=== PATIENT | male | born 1945 | race Caucasian/White ===

== ENCOUNTER 2019-12-17 15:52 | Emergency (ER) | payer OTHER ==
--- OUTSIDE RECORDS SUMMARY | 2019-12-17 15:58 | XMS REPORT | Continuity of Care Document ---
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 [place] neck JAW CA Active 06/24/[address] C17.0 - MALIGNANT Active 06/13/20 [facility] NEOPLASM OF 18 [place] DUODENUM DYSPHAGIA Active 05/07/[address] R13.11 Active 04/28/[address] CA OF JAW Active 03/11/[address] C76.0 - "MALIGNANT Active 02/26/20 H [facility] NEOPLASM OF HEAD, 17 [place] FA" Other nonspecific 01/08/2019 M H [facility] abnormal finding Her lea of lung field Hyperlipidemia Active Problem 06/24/2019 [place] (disorder[place] Medical [place], [place]RIE Cordero,[facility] Hypertensive Active Problem 06/24/2019 [place] disorder, systemic M edical arterial [place], (disorder[facility] 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 Medical (disorder) [place], [place]RIE Cordero,[facility], [facility] 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[facility] nodule Gil Other specified 08/31/2018 [facility] postprocedural [place] nn states Personal history 08/31/2018 [facility] of antineoplastic He rmann chemotherapy Personal history 08/31/2018 [facility] of irradiation Tala nn 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, Medical unspecified Center Personal history 01/17/2019 [facility] nicotine Medical dependence Center Essential 01/17/2019 [facility] (primary) Medical hypertension Center Hyperlipidemia, 01/17/2019 [facility] unspecified Medical Center DYSPHAGIA, ORAL Active PHASE [place] MALIGNANT NEOPLASM Active OF HEAD, FACE AND [place] N[place] Medications Medication Details Route Status Patient Ordering Order Source Instructions Provider Date Enoxaparin Notes: (Same [place] as: Lovenox) 2019 Medical Center Hydrochlorothiazide 1 tab, Route: No Longer [place] 12.5 MG / Lisinopril PO, Drug Form: Active 2019 Medical 10 MG Oral Tablet TAB, Dosing Ce nter Weight 79.091, kg, Daily, Start date: 06/30/18 9:00:00 REFLOW OPERATOR, Duration: 30 day, Stop date: 07/29/18 9:00:00 REFLOW OPERATOR Aspirin 325 MG Oral Notes: Take Inactive [facility] Tablet with food. 2019 Medical Center Amlodipine Notes: (Same Inactive [place] as: Norvasc) 2019 [facility] Microzide Notes: (Same Inactive [place] as: Microzide) 2019 Medical With food. Center lisinopril Notes: (Same [place] as: Prinivil, 2019 [facility] Zestril) Center Docusate Sodium 100 100 mg = 1 Active [place] MG Oral Capsule cap, PO, BID, 2019 [place] # 14 cap, 0 Center Refill(s) tramadol 50 mg = 1 tab, No Longer [place] as hydrochloride 50 MG PO, Q4H, PRN Active 2019 Medical Oral Tablet Pain Score Center 1-5, X 14 day, # 45 tab, 0 Refill(s) ondansetron 4 mg 4 mg = 1 tab, Active H [place] oral tablet PO, Q8H, PRN 2019 Medical Nausea & Center Vomiting, # 10 tab, 0 Refill(s) Simvastatin Notes: (Same [place] Long[place] as: Zocor) Active 2019 Medical Center tamsulosin Notes: (Same No Longer [place] As: Flomax) Active 2019 Medical "Do Not Crush" Center Docusate Notes: (Same No Longer [place] as: Colace) Active 2019 Medical (Do Not Crush) Center tramadol Notes: Not to [place] Longer [place] hydrochloride 50 MG exceed Active 2019 Medi [place] Oral Tablet 400mg/day. Center (Same As: Ultram) [place] S PH 7.4 Notes: (Same No Longer [facility] 1,000 mL as: Isolyte S Active 2018 Medical PH 7.4) Center Ondansetron Notes: (Same [place] Long[place] as: Zofran) Active 2019 Medical MEDICATION Center WASTE Product Size: 4 mg Product Wasted: ___ mg Acetaminophen 325 MG Notes: (Same No Longer [facility] / Hydrocodone as: Co[place] Active 2018 Medical Bitartrate 5 MG Oral 325/5) Do not Center Tablet exceed 4gm/day of acetaminophen. Morphine Notes: (Same No Longer [facility] as:MORPhine Active 2018 Medical Sulfate) Center glycopyrrolate Route: IV, Inactive [place] (ANES) Drug form: 2018 Medical INJ, ONCE, Center Stop date: 06/29/18 9:21:00 REFLOW OPERATOR neostigmine (ANES) Route: IV, Inactive [facility] Drug form: 2019 Medical INJ, ONCE, Center Stop date: 06/29/18 9:21:00 REFLOW OPERATOR ondansetron (ANES) Route: IV, Inactive [facility] Drug form: 2019 Medical INJ, ONCE, Center Stop date: 06/29/18 9:21:00 REFLOW OPERATOR hydromorphone (ANES) Route: IV, Inactive [facility] + sodium chloride Drug form: 2019 Med ical (ANES) 9 mL INJ, ONCE, Center Stop date: 06/29/18 8:47:00 REFLOW OPERATOR acetaminophen (ANES) Route: IV, Inactive [facility] Drug form: 2019 Medical INJ, ONCE, Center Stop date: 06/29/18 8:42:00 REFLOW OPERATOR ketAMINE (ANES) Route: IV, Inactive [place] Drug form: 2019 Medical INJ, ONCE, Center Stop date: 06/29/18 8:42:00 REFLOW OPERATOR fentaNYL (ANES) Route: IV, Inactive [place] Drug form: 2019 Medical INJ, ONCE, Center Stop date: 06/29/18 8:32:00 REFLOW OPERATOR dexamethasone (ANES) Route: IV, Inactive [facility] Drug form: 2019 Medical INJ, ONCE, Center Stop date: 06/29/18 8:27:00 REFLOW OPERATOR lidocaine (ANES) Route: IV, Inactive [facility] Drug form: 2019 Medical INJ, ONCE, Center Stop date: 06/29/18 8:27:00 REFLOW OPERATOR propofol (ANES) Route: IV, Inactive [place] Drug form: 2019 Medical INJ, ONCE, Center Stop date: 06/29/18 8:27:00 REFLOW OPERATOR rocuronium (ANES) Route: IV, Inactive [facility] Drug form: 2019 Medical INJ, ONCE, Center Stop date: 06/29/18 8:27:00 REFLOW OPERATOR succinylcholine Route: IV, Inactive [place] (ANES) Drug form: 2018 Medical INJ, ONCE, Center Stop date: 06/29/18 8:27:00 REFLOW OPERATOR ePHEDrine (ANES) Route: IV, Inactive [facility] Drug form: 2018 Medical INJ, ONCE, Center Stop date: 06/29/18 8:22:00 REFLOW OPERATOR phenylephrine (ANES) Route: IV, Inactive [facility] Drug form: 2019 Medical INJ, ONCE, Center Stop date: 06/29/18 8:22:00 REFLOW OPERATOR ceFAZolin (ANES) Route: IV, Inactive [facility] Drug form: 2018 Medical INJ, ONCE, Center Stop date: 06/29/18 8:22:00 REFLOW OPERATOR Oxycodone Notes: (Same Inactive [place] as: 2019 Medical Roxicodone) Center Hydralazine Notes: (Same Inactive [place] as: 2019 Medical Apresoline) Center Push over 5 minutes Labetalol 10 mg, 2 mL, Inactive [facility] Route: IVP, 2019 Medical Drug form: Center INJ, Q5Min, Dosing Weight 79.091, kg, PRN Elevated BP, Start date: 06/29/18 7:58:00 REFLOW OPERATOR, Duration: 5 doses or times, Stop date: 06/30/18 0:00:00 REFLOW OPERATOR Ondansetron Notes: (Same Inactive [place] as: Zofran) 2019 Medical MEDICATION Center WASTE Product Size: 4 mg Product Wasted: ___ mg Flumazenil Notes: (Same Inactive [place] as: Romazicon) 2019 [facility] Naloxone Notes: Same as Inactive [place] Narcan 2019 Medical Center Hydromorphone Notes: Same as Inactive [place] Dilaudid 2019 [facility] Fentanyl Notes: (Same Inactive [facility] as: Sublimaze) 2019 Medical Preservative Center free. Lactated Ringers Route: IV, Inactive [facility] Injection IV (ANES) Total Volume: 2019 [facility] 1000 mL 1,000, Start Center date: 06/29/18 7:27:00 REFLOW OPERATOR, Stop date: 06/29/18 8:27:00 REFLOW OPERATOR tamsulosin 0.4 mg 0.4 mg = 1 Active [facility] oral capsule cap, PO, 2018 Medical Daily, 0 Center Refill(s) Docusate Sodium 50 50 mg = 1 cap, Active [facility] MG Oral Capsule PO, BID, PRN 2017 Med ical Constipation, Center # 20 cap, 0 Refill(s) Acetaminophen 300 MG 1 tab, PO, Active [facility] / Codeine Phosphate Q4H, PRN Pain, 2017 Medical 30 MG Oral Tablet X 7 day, # 42 Center [Tylenol with tab, 0 Codeine #3] Refill(s) Aspirin 325 MG Oral 325 mg = 1 Active H [place] Tablet tab, PO, 2017 Medical Daily, # 30 Center tab, 4 Refill(s) Mupirocin 0.02 MG/MG 1 appl, TOP, Active [facility] Topical Ointment Q8H, X 7 day, 2017 edical # 30 gm, 0 Center Refill(s) Mupirocin 0.02 MG/MG 1 appl, Route: No Longer [facility] Topical Ointment TOP, Q8H, Drug Active 2016 Medical form: OINT, Center Start date: 03/28/17 11:00:00 CDT, Duration: 30 day, Stop date: 04/27/17 8:00:00 CDT Glucagon 1 mg, Route: Inactive [facility] IV, ONCE, 2017 Medical Dosing Weight Center 83.636, kg, Start date: 03/23/17 8:42:00 CDT, Stop date: 03/23/17 8:42:00 CDT Fentanyl 25 microgram, Inactive [facility] Route: IV, 2017 Medical ONCE, Dosing Center Weight 83.636, kg, Start date: 03/23/17 8:30:00 CDT, Stop date: 03/23/17 8:30:00 CDT Midazolam 0.5 mg, Route: Inactive [place] IV, ONCE, 2016 Medical Dosing Weight Center 83.636, kg, Start date: 03/23/17 8:30:00 CDT, Stop date: 03/23/17 8:30:00 CDT Glucagon 1 mg, Route: Inactive [place] IV, ONCE, 2016 Medical Dosing Weight Center 83.636, kg, Start date: 03/23/17 8:26:00 CDT, Stop date: 03/23/17 8:26:00 CDT Fentanyl 50 microgram, Inactive [place] Route: IV, 2016 Medical ONCE, Dosing Center Weight 83.636, kg, Start date: 03/23/17 8:12:00 CDT, Stop date: 03/23/17 8:12:00 CDT Midazolam 1 mg, Route: Inactive [place] IV, ONCE, 2017 Medical Dosing Weight Center 83.636, kg, Start date: 03/23/17 8:12:00 CDT, Stop date: 03/23/17 8:12:00 CDT Beneprotein 7 gm pkt Notes: (Same No Longer 02/27 [place] as: Active 2017 Medical Beneprotein) Center senna Notes: (Same No Longer [facility] as: Senokot) Active 2017 Medical Center Miralax Notes: No Longer [place] Dissolve in 8 Active 2016 Medical oz of water or Center juice. (Same as: Miralax) tamsulosin Notes: (Same No Longer [place] As: Flomax) Active 2017 Medical "Do Not Crush" Center PHOS-NaK Notes: (Same No Longer [facility] as: Phos-NaK) Active 2017 Medical Each 1.5 gm Center pkt has 250mg phosphorous. Mix w/2.5oz water and stir. sodium phosphate 30 mmol, 10 Inactive [place] mL, Route: 2017 Medical IVPB, ONCE, Center Dosing Weight 83.636, kg, Start date: 03/19/17 2:36:00 CDT, Stop date: 03/19/17 2:36:00 CDT potassium phosphate Notes: (Same Inactive [place] as: K 2017 [facility] Phosphate.) 1 Center mMol phoshate has 1.47 mEq potassium Infuse over 4 hours Simvastatin Notes: (Same [place] Longer [place] as: Zocor) Active 2017 [facility] senna 8.6 mg oral Notes: (Same No Longer [place] tablet as: Senokot) Active 2017 [facility] Aspirin Notes: Take No Longer [place] with food. Active 2017 [facility] Amlodipine Notes: (Same No Longer [place] as: Norvasc) Active 2017 [facility] Streptococcus Notes: Shake Inactive [place] pneumoniae serotype well prior to 2017 [place] [id number] capsular antigen use (Same as: [place] diphtheria [id number] Prevnar 13) protein conjugate vaccine / Streptococcus pneumoniae serotype 14 capsular antigen diphtheria [id number] protein conjugate vaccine / Streptococcus pneumoniae serotype 18C capsular antigen d Famotidine 20 MG Notes: (Same No Longer [place] Oral Tablet as: Pepcid) Active 2017 [facility] Miralax Notes: No Longer [place] Dissolve in 8 Active 2017 Medical oz of water or Center juice. (Same as: Miralax) Docusate Sodium 100 Notes: (Same No Longer 03/18 [place] MG Oral Capsule as: Colace) Active 2017 [facility] chlorhexidine Notes: (Same No Longer [place] gluconate 1.2 MG/ML As: Peridex) Active 2017 [facility] Mouthwash [place] Magnesium Sulfate Notes: WASTE: Inactive [place] F/P - Sink; E 2017 [facility] [place] Trash Bin Ofirmev Notes: Infuse No Longer [place] over 15 Active 2017 Medical minutes Do Center not exceed 4gm/day of acetaminophen MEDICATION WASTE Product Size: 1000 mg Product Wasted: ___ mg ocular lubricant Notes: (Same No Longer [place] as: Active 2016 Medical Lacri-Lube, Center Duratears Naturale, Artificial Tears, and Tears Again ) gabapentin 300 MG Notes: (Same No Longer [place] Oral Capsule as: Neurontin) Active 2016 [facility] lynnette Center chlorhexidine Notes: (Same No Longer gluconate 1.2 MG/ML As: Peridex) Active 2016 [facility] Mouthwash Center Tylenol Notes: Max No Longer [place] acetaminophen Active 2016 Medical = 4000mg/day [place] (4 gm/day). (Same as: Tylenol) Oxycodone Notes: (Same No Longer [place] Hydrochloride 1 as: Active 2016 Medical MG/ML Oral Solution 'Roxicodone) [place] Dextrose 50% Syringe 25 gm, 50 mL, No Longer [place] Route: IVP, Active 2016 Medical Drug Form: Center INJ, Dosing Weight 83.636, kg, PRN, PRN Abnormal Lab Result, Start date: 03/17/17 22:54:00 CDT, Duration: 30 day, Stop date: 04/16/17 22:53:00 CDT, For FSBG < 40 mg/dL Insulin regular 60 units) No Longer [place] WASTE: F/P - Active 2016 [facility] Black; E - Center Municipal Trash Bin Stable for 28 days at room temperature Expires in days from Date propofol INJ 1,000 Notes: If No Longer H [place] mg Diprivan - Active 2016 [facility] change bottle Center & tubing every 12 hr Per state nursing law propofol can only be given by a nurse if patient is intubated or being intubated (unless the nurse is a CURRICULUM ASSISTANT PRINCIPAL). Same as: Diprigorge Fentanyl 1,000 No Longer [place] microgram, 20 Active 2016 Medical mL, Rate: Center Titrate, Start Dose: 50 microgram/hr, Titration: 25 microgram/hour every 15 minutes, Goal(s): 0 to -1, Max Dose: 300 microgram/hr, Route: IV, Dosing Weight 83.636 kg, Total Volume: 20, Start date: 03/17/17 21:52:00 CDT, D... ondansetron (ANES) Route: IV, Inactive H [place] Drug form: 2017 Medical INJ, ONCE, Center Stop date: 03/17/17 21:14:00 CDT fentaNYL (ANES) Route: IV, Inactive [place] Drug form: 2017 Medical INJ, ONCE, Center Stop date: 03/17/17 21:14:00 CDT heparin Notes: porcine [place] Longer [place] heparin Active 2017 [facility] Center Unasyn Notes: Dosing No Longer [place] based on Active 2016 [facility] Center component (Same as: Unasyn) Isolyte S (PH 7.4) Notes: (Same No Longer [place] 1000 mL 1,000 mL as: Isolyte S Active 2016 edical PH 7.4) Center Ondansetron Notes: (Same [place] Longer [place] as: Zofran) Active 2016 Medical MEDICATION Center WASTE Product Size: 4 mg Product Wasted: ___ mg Morphine Notes: (Same Inactive [facility] as:MORPhine 2017 Medical Sulfate) Center rocuronium (ANES) Route: IV, Inactive [facility] Drug form: 2017 Medical INJ, ONCE, Center Stop date: 03/17/17 19:39:00 CDT ePHEDrine (ANES) Route: IV, Inactive [facility] Drug form: 2017 Medical INJ, ONCE, Center Stop date: 03/17/17 11:43:00 CDT metoprolol (ANES) Route: IV, Inactive [facility] Drug form: 2017 Medical INJ, ONCE, Center Stop date: 03/17/17 10:03:00 CDT hydromorphone (ANES) Route: IV, Inactive [facility] Drug form: 2017 Medical INJ, ONCE, Center Stop date: 03/17/17 9:33:00 CDT dexamethasone (ANES) Route: IV, Inactive [facility] Drug form: 2017 Medical INJ, ONCE, Center Stop date: 03/17/17 9:03:00 CDT acetaminophen (ANES) Route: IV, Inactive [facility] Drug form: 2017 Medical INJ, ONCE, Center Stop date: 03/17/17 9:03:00 CDT rocuronium (ANES) Route: IV, Inactive [facility] Drug form: 2017 Medical INJ, ONCE, Center Stop date: 03/17/17 9:03:00 CDT propofol (ANES) Route: IV, Inactive [place] Drug form: 2017 Medical INJ, ONCE, Center Stop date: 03/17/17 9:03:00 CDT lidocaine (ANES) Route: IV, Inactive [facility] Drug form: 2017 Medical INJ, ONCE, Center Stop date: 03/17/17 9:03:00 CDT sodium chloride 0.9% Route: IV, Inactive [facility] 1000 ml INJ (ANES) Total Volume: 2016 [facility] 1,000, Start Center date: 03/17/17 8:29:00 CDT, Stop date: 03/17/17 9:29:00 CDT fentaNYL (ANES) Route: IV, Inactive [place] Drug form: 2016 Medical INJ, ONCE, Center Stop date: 03/17/17 8:13:00 CDT midazolam (ANES) Route: IV, Inactive [facility] Drug form: 2016 Medical SOLN, ONCE, Center Stop date: 03/17/17 8:13:00 CDT ceFAZolin (ANES) Route: IV, Inactive [facility] Drug form: 2017 Medical INJ, ONCE, Center Stop date: 03/17/17 8:08:00 CDT LR 1000 mL INJ Route: IV, Inactive [place] (ANES) Total Volume: 2016 [facility] 1,000, Start Center date: 03/17/17 7:29:00 CDT, Stop date: 03/17/17 8:29:00 CDT amLODIPine 5 mg oral 5 mg = 1 tab, Active 03/16 [facility] tablet PO, Daily, 0 2016 Medical Refill(s) [place] Hydrochlorothiazide 1 tab, PO, Active H [place] 12.5 MG / Lisinopril Daily, 0 2016 Me dical 10 MG Oral Tablet Refill(s) [facility] er simvastatin 20 mg 20 mg = 1 tab, Active [facility] oral tablet PO, Bedtime, 0 2016 Medic al Refill(s) Center Allergies, Adverse Reactions, Alerts Substance Category Reaction Severity Reaction Status Date Comments S ource type Reported No Known Assertion Drug OP ID Medication allergy Tala nn Allergies Immunizations Immunization Date Given Site Status Last Updated Comments Leena rce pneumococcal 03/24/2017 Not Given [facility] theast 13-valent vaccine pneumococcal 03/24/2017 Not Given [facility] 13-valent vaccine [facility], OPID [place],[facility] Results Order Name Results Value Reference Date Interpretation Comments Leena rce Range CHEM PANEL Phosphorus 3.4 2.5 - 4.5 03/28 2016 [facility] CHEM PANEL Magnesium Lvl 2.7 1.8 - 2.4 03/28 [facility] ELECTROLYTES AGAP 14.5 10.0 - 03/28 [facility] 20.0 [facility] ELECTROLYTES Calcium Lvl 9.4 8.5 - 10.5 03/28 [place] [facility] ELECTROLYTES Potassium Lvl 4.5 3.5 - 5.1 03/28 2016 [facility] ELECTROLYTES Sodium Lvl 139 135 - 145 03/28 [place] [facility] ELECTROLYTES CO2 25 24 - 32 03/[address] ELECTROLYTES Chloride Lvl 104 95 - 109 03/28 [facility] ELECTROLYTES Creatinine 0.68 0.50 - 03/28 [facility] Lvl 1.40 [facility] ELECTROLYTES Glucose Lvl 121 70 - 99 03/28 [facility] ELECTROLYTES BUN 20 7 - [address] ELECTROLYTES eGFR 95 03/28 [facility] Comment: The Medical eGFR is Center calculated using the CKD-EPI formula. In most young, healthy individuals the eGFR will be >90 mL/min/1.73m2 . The eGFR declines with age. An eGFR of 60-89 may be normal in some populations, particularly the elderly, for whom the CKD-EPI formula has not been extensively validated. Use of the eGFR is not recommended in the following populations:< br/>
Lesvia viduals with unstable creatinine concentration s, including patients and those with serious co-morbid conditions.<b r/>
Patie nts with extremes in muscle mass or diet.

The data above are obtained from the National Kidney Disease Education Program (NKDEP) which additionally recommends that when the eGFR is used in patients with extremes of body mass index for purposes of drug dosing, the eGFR should be multiplied by the estimated BMI. HEMATOLOGY Basophils # 0.1 0.0 - 0.2 03/28 [facility] HEMATOLOGY Eosinophils # 0.4 0.0 - 0.5 03/28 [facility] HEMATOLOGY Segs-Bands # 6.0 1.5 - 8.1 03/28 [facility] HEMATOLOGY Basophils 0.6 0.0 - 1.0 03/28 [facility] HEMATOLOGY Lymphocytes # 1.4 1.0 - 5.5 03/28 [facility] HEMATOLOGY Monocytes # 0.9 0.0 - 0.8 03/28 [facility] HEMATOLOGY Eosinophils 4.0 0.0 - 4.0 03/28 [facility] HEMATOLOGY Lymphocytes 16.3 20.0 - 03/28 [place] 40.0 [facility] HEMATOLOGY Monocytes 10.1 2.0 - 12.0 03/28 [facility] HEMATOLOGY Segs 69.0 45.0 - 03/28 [place] 75.0 [facility] HEMATOLOGY MPV 7.7 7.4 - 10.4 03/28 [facility] HEMATOLOGY MCHC 33.6 32.0 - 03/28 [place] 36.0 [facility] HEMATOLOGY RDW 13.0 11.5 - 03/28 [place] 14.5 [facility] HEMATOLOGY Platelet 495 133 - 450 03/28 [facility] HEMATOLOGY MCV 97.0 80.0 - 03/28 [place] 94.0 [facility] HEMATOLOGY MCH 32.6 27.0 - 03/28 [place] 31.0 [facility] HEMATOLOGY Hgb 9.6 14.0 - 03/28 [place] 18.0 [facility] HEMATOLOGY Hct 28.6 42.0 - 03/28 [place] 54.0 [facility] HEMATOLOGY WBC 8.8 3.7 - 10.4 03/28 [facility] HEMATOLOGY RBC 2.95 4.70 - 03/28 [place] 6.10 [facility] PARATHYROID Ca Norm WB 1.15 1.05 - 03/28 [place] PROFILE 1.25 Medical Center PARATHYROID Ca Ion WB 1.14 1.05 - 10/ [place] PROFILE 1.25 [facility] CHEM PANEL Phosphorus 3.7 2.5 - 4.5 03/27 [facility] CHEM PANEL eGFR 97 03/27 Result Comment: The Medical eGFR is Center calculated using the CKD-EPI formula. In most young, healthy individuals the eGFR will be >90 mL/min/1.73m2 . The eGFR declines with age. An eGFR of 60-89 may be normal in some populations, particularly the elderly, for whom the CKD-EPI formula has not been extensively validated. Use of the eGFR is not recommended in the following populations:< br/>
Lesvia viduals with unstable creatinine concentration s, including patients and those with serious co-morbid conditions.<b r/>
Patie nts with extremes in muscle mass or diet.

The data above are obtained from the National Kidney Disease Education Program (NKDEP) which additionally recommends that when the eGFR is used in patients with extremes of body mass index for purposes of drug dosing, the eGFR should be multiplied by the estimated BMI. CHEM PANEL BUN 16 7 - 22 03/27 [facility] CHEM PANEL Glucose Lvl 117 70 - 99 03/27 [facility] CHEM PANEL Creatinine 0.66 0.50 - 03/27 [facility] Lvl 1.40 [facility] CHEM PANEL Sodium Lvl 140 135 - 145 03/27 [facility] CHEM PANEL Potassium Lvl 4.3 3.5 - 5.1 03/27 [facility] CHEM PANEL Calcium Lvl 9.3 8.5 - 10.5 03/27 [facility] CHEM PANEL CO2 27 24 - 32 03/27 [facility] CHEM PANEL Chloride Lvl 104 95 - 109 03/27 [facility] CHEM PANEL AGAP 13.3 10.0 - 03/27 20. [facility] CHEM PANEL Magnesium Lvl 2.6 1.8 - 2.4 03/27 [facility] HEMATOLOGY Hct 26.8 42.0 - 03/27 [place] 54.0 [facility] HEMATOLOGY MCV 96.7 80.0 - 03/27 [facility] 94.0 [facility] HEMATOLOGY RBC 2.77 4.70 - 03/27 [place] 6.10 [facility] HEMATOLOGY Hgb 9.0 14.0 - 03/27 18.0 [facility] HEMATOLOGY WBC 8.1 3.7 - 10.4 03/27 [facility] HEMATOLOGY Platelet 396 133 - 450 03/27 [facility] HEMATOLOGY MPV 8.0 7.4 - 10.4 03/27 [facility] HEMATOLOGY RDW 13.1 11.5 - 03/27 14.5 [facility] HEMATOLOGY MCH 32.5 27.0 - 03/27 [place] 31.0 [facility] HEMATOLOGY MCHC 33.6 32.0 - 03/27 [place] 36.0 [facility] HEMATOLOGY Monocytes # 0.8 0.0 - 0.8 03/27 [facility] HEMATOLOGY Eosinophils # 0.4 0.0 - 0.5 03/27 [facility] HEMATOLOGY Lymphocytes # 1.3 1.0 - 5.5 03/27 [facility] HEMATOLOGY Segs-Bands # 5.5 1.5 - 8.1 03/27 [facility] HEMATOLOGY Segs 68.0 45.0 - 03/27 [place] 75.0 [facility] HEMATOLOGY Lymphocytes 16.5 20.0 - 03/27 [place] 40.0 [facility] HEMATOLOGY Monocytes 9.7 2.0 - 12.0 03/27 [facility] HEMATOLOGY Eosinophils 5.2 0.0 - 4.0 03/27 [facility] HEMATOLOGY Basophils 0.6 0.0 - 1.0 03/27 [facility] PARATHYROID Ca Ion WB 1.20 1.05 - 03/27 [facility] PROFILE 1. [facility] PARATHYROID Ca Norm WB 1.20 1.05 - 03/27 [facility] PROFILE . [facility] CHEM PANEL Phosphorus 3.3 2.5 - 4.5 03/26 [facility] CHEM PANEL Magnesium Lvl 2.5 1.8 - 2.4 03/26 [facility] CHEM PANEL eGFR 95 03/26 [facility] Comment: The Medical eGFR is Center calculated using the CKD-EPI formula. In most young, healthy individuals the eGFR will be >90 mL/min/1.73m2 . The eGFR declines with age. An eGFR of 60-89 may be normal in some populations, particularly the elderly, for whom the CKD-EPI formula has not been extensively validated. Use of the eGFR is not recommended in the following populations:< br/>
Lesvia viduals with unstable creatinine concentration s, including patients and those with serious co-morbid conditions.<b r/>
Patie nts with extremes in muscle mass or diet.

The data above are obtained from the National Kidney Disease Education Program (NKDEP) which additionally recommends that when the eGFR is used in patients with extremes of body mass index for purposes of drug dosing, the eGFR should be multiplied by the estimated BMI. CHEM PANEL Glucose Lvl 126 70 - 99 03/26 [facility] CHEM PANEL BUN 12 7 - 22 03/26 [facility] CHEM PANEL Creatinine 0.68 0.50 - 03/26 [facility] Lvl 1.40 [facility] CHEM PANEL Potassium Lvl 4.6 3.5 - 5.1 03/26 [place] [facility] CHEM PANEL Sodium Lvl 139 135 - 145 03/26 [facility] CHEM PANEL Chloride Lvl 106 95 - 109 03/26 [facility] CHEM PANEL CO2 24 24 - 32 03/26 [facility] CHEM PANEL AGAP 13.6 10.0 - 03/26 [place] 20.0 [facility] CHEM PANEL Calcium Lvl 9.0 8.5 - 10.5 03/26 [facility] HEMATOLOGY MCH 32.7 27.0 - 03/26 [place] 31.0 [facility] HEMATOLOGY MCV 96.7 80.0 - 03/26 [place] 94.0 [facility] HEMATOLOGY MCHC 33.8 32.0 - 03/26 [place] 36.0 [facility] HEMATOLOGY WBC 9.8 3.7 - 10.4 03/26 [facility] HEMATOLOGY Hct 28.8 42.0 - 03/26 [place] 54.0 [facility] HEMATOLOGY RBC 2.97 4.70 - 03/26 [place] 6.10 [facility] HEMATOLOGY Hgb 9.7 14.0 - 03/26 [place] 18.0 [facility] HEMATOLOGY RDW 13.0 11.5 - 03/26 14.5 [facility] HEMATOLOGY Platelet 362 133 - 450 03/26 [facility] HEMATOLOGY MPV 7.6 7.4 - 10.4 03/26 [facility] HEMATOLOGY Segs-Bands # 6.8 1.5 - 8.1 03/26 [facility] HEMATOLOGY Lymphocytes # 1.6 1.0 - 5.5 03/26 [facility] HEMATOLOGY Monocytes # 0.9 0.0 - 0.8 03/26 [facility] HEMATOLOGY Eosinophils # 0.5 0.0 - 0.5 03/26 [facility] HEMATOLOGY Segs 68.9 45.0 - 03/26 [place] 75.0 [facility] HEMATOLOGY Lymphocytes 16.4 20.0 - 03/26 [place] 40.0 [facility] HEMATOLOGY Eosinophils 4.7 0.0 - 4.0 03/26 [facility] HEMATOLOGY Basophils 0.4 0.0 - 1.0 03/26 [facility] HEMATOLOGY Monocytes 9.6 2.0 - 12.0 03/26 [facility] PARATHYROID Ca Ion WB 1.12 1.05 - 03/26 [place] PROFILE . [facility] PARATHYROID Ca Norm WB 1.13 1.05 - 03/26 [place] PROFILE . [facility] CHEM PANEL Lactic Acid 1.8 0.5 - 2.2 03/24 [facility] HEMATOLOGY Basophils # 0.1 0.0 - 0.2 03/23 [facility] HEMATOLOGY INR 1.01 0.85 - 03/22 [place] 1.17 [facility] HEMATOLOGY PT 13.5 12.0 - 03/22 14.7 [facility] CHEM PANEL Lactic Acid 3.8 0.5 - 2.2 03/18 s [facility] HEMATOLOGY [place] 0.2 03/18 [facility] HEMATOLOGY K-time Rapid 1.3 0.6 - 2.3 03/18 [facility] HEMATOLOGY R-time Rapid 0.3 0.4 - 0.7 03/18 [facility] HEMATOLOGY G-value Rapid 7.7 5.0 - 11.6 03/18 [place] [facility] HEMATOLOGY Max Amplitude 61 52 - 71 03/18 [place] [facility] HEMATOLOGY Angle Rapid 73 64 - 80 03/18 [facility] HEMATOLOGY ACT (TEG) 82 86 - 118 03/18 [facility] HEMATOLOGY Estimated % 4.7 0.0 - 7.5 03/18 Result [facility] Comment: Medical "Significant Center Findings called to Hilary Justice_at 03/18/2017 00:47__by _Le__.Read Back OK." HEMATOLOGY RBC Morph Normal 03/18 [facility] (03/17/17 10:10 PM) [facility] HEMATOLOGY Plt Morph Normal 03/18 [facility] (03/17/17 10:10 PM) [facility] HEMATOLOGY Basophils # 0.1 0.0 - 0.2 03/16 [facility] Pathology Reports No Data Provided for This Section Diagnostic Reports Report Value Date Source Neck soft tissue w EXAM: CT OF THE NECK WITH CONTRAST 06/22/[address] CT DATE: 06/22/2019 INDICATION: Cancer of the jaw COMPARISON: Similar study dated 06/20/2018 TECHNIQUE: Axial images of the neck wer e obtained after intravenous contrast. Reformatted images in the sagittal and coronal plane were included. IV contrast: 100 mL Visipaque 320 FINDINGS: There are stable postsurgica l changes from prior left mandibulectomy with soft tissue and free flap reconstruction, and subsequent symphyseal mandibulectomy and fibular free flap reconstruction. The rig ht-sided osteotomy again reymundo ws no bony bridging. The osteotomies remain sharp. The metallic hardware are grossly unchanged and unremarkable, without signs of lucency surrounding the screws. There is no masslike enhancement at the soft tissues in the maxillofacial region or in the neck. Previously noted posttreatme nt changes in the neck with some skin thickening and fat stranding are unchanged. No necrotic or morphological ly abnormal lymph node is identified in the neck. Visualized level 2 lymph nodes are grossly unchanged in appearance. The appearance of the thyroi d gland is unchanged. No discrete nodule is identified. The left parotid gland has f urther atrophied. The submandibular glands have been resected. The right parotid lymph node is unchanged in size. The visible paranasal sinuses remain clear. There is persistent opacific ation of the left mastoid air cells and middle ear cavity. No aggressive bony changes a re identified. Cervical spondylosis and severe spinal stenosis at C3-C4 through C5-C6 are again shown. No focal mass is identified in the imaged brain parenchyma. No discrete mass in the visible lung apices is i dentified. IMPRESSION: 1. Grossly stable postopera tive/posttreatment changes. No nodular or masslike enhancement, to suggest tumor recurrence 2. No necrotic or pathologi c appearing lymph nodes are identified. Stable appearance of the right parotid lymph node and level 2 lymph nodes Chest w contrast CT EXAM: CT CHEST WITH CONTRAST 06/22/2019 BETH MITTAL [place] DATE: 06/22/2019 11:31 REFLOW OPERATOR INDICATION: - Cancer of jaw TECHNIQUE: Volumetric CT acq uisition of the chest, following intravenous contrast. Axial, sagittal and coronal reconstructions. Axial MIP reconstructions are created at the acquisition workstation. IV Contrast: 100 mL of Visipaque 320. DLP: 716 mGy-cm COMPARISON: 06/20/2018 FINDINGS: Lines and Tubes: None. Lower Neck: Please refer to the separate report of neck soft tissue CT for further details about the neck findings. Heart and Great Vessels: No cardiomegaly. No pericardial effusion. Mild calcifications are seen along the 3 coronary arteries. Aortic atherosclerotic disease. Normal size of the ascending aorta and main pulmonary artery. No central pulmonary embolism . Lymph Nodes: No hilar, media stinal, axillary or internal mammary lymphadenopathy. Lungs: Interval development of new oval-shaped nodule with surrounding groundglass opacity in the left lower lobe (series 2, image 161) measuring 13 x 7 mm in diameters. Again seen is 3 mm pleural-b ased nodule in the superior segment of the left lower lobe (series 2, image 114). Again seen is a 5 mm nodule in the posterior basal segment of the right lower lobe (series 2, image 183), stable. Stable tiny nodules seen in the apical segment of the right upper lobe (series 2, images 34, 47 and 56) Stable pleural-based nodule again seen in the right upper lobe (series 2, image 72) Pleura: No pleural effusion or pneumothorax. Upper abdomen: Unremarkable. Bones and Soft Tissues: Mild degenerative changes of the thoracic spine. No acute osseous abnormalities. No destructive focal osseous lesions identified in the current study. Again seen is tiny scleroti c focus in the posterior seg ment of the right 3rd rib likely represents bone island. IMPRESSION: 1. Interval development of oval-shaped solid nodule with surrounding groundglass opacity measuring up to 15 mm in diameter. Although this may represent infectious or inflammatory process, given the pat ient's history of primary ne oplastic disease, this may represent metastatic lesion. Chest CT follow-up in 3 months is recommended to assess for any changes in size following treatment for infectious or inflammatory changes. 2. Few other scattered bila teral pulmonary nodules measuring up to 5 mm in size and annotated on the axial images, stable. 3. Mild calcifications are seen along the 3 coronary arteries. Aortic atherosclerotic disease. 4. Osseous findings are stable compared to prev ious study. 5. Please refer to the sepa rate report of neck soft tissue CT for further details about the neck findings. 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 TECHNIQUE: Volumetric CT of the chest is acquired following intravenous administration of contrast. Axial, coronal and sagittal images are provided. IV Contrast: 100 mL Omnipaque 350. DLP: 1324.96 mGy-cm FINDINGS: Interval resolution of right lower lobe nodule that was new on 02/11/2018. A discrete 6 mm right lower lobe nodule on image 164 of series 2 is stable since 02/25/2017. Scattered bilateral pulmonary nodu les measuring up to 3 mm are stable since 02/25/2017, such as in the right lung on images 32, 41, 48, 51, 66, 80 and 113, in the left lung on images 70, 73, 111 and 125 of series 2. There are no enlarged intrat horacic lymph nodes. Please refer to same date CT neck for evaluation of this region. The heart is normal in size. The aorta and main pulmonary artery have normal caliber. There are mild atherosclerotic changes in the aorta and coronary arteries. No pericardial effusion. Noncalcified sotero que at the takeoff of the le ft subclavian artery narrows the lumen by approximately 50% is unchanged. Small apparent filling defect in the left jugular vein is unchanged. Partially imaged upper abdomen shows normal adre nal glands. Small sclerotic foci seen at the posterior aspect of the 3rd right rib on image 42 and 8th right rib on image 138 of series 2, unchanged from prior study. A 5 mm lucent focus at T3 vertebral body on sanjuana ge 59 of series 2 is stable since 02/25/2017, likely degenerative. Tiny sclerotic foci at T10 vertebral body on image 178 is also unchanged. Mild heterogeneous texture in the body of the sternum is stabl e and may represent old healed fracture. No acut e osseous lesions noted. IMPRESSION: 1. Interval resolution of r ight lower lobe nodule that was new on 02/11/2018. Other scattered pulmonary nodules are stable since 02/25/2017. Continued CT follow-up advised. 2. Noncalcified plaque at t he takeoff of the left subclavian artery narrows the lumen by approximately 50% and small apparent filling defect in the left jugular vein are unchanged. 3. Please refer to same date CT neck for evalua tion of this region. 4. No acute osseous lesions noted. Small sclerotic foci seen at the posterior aspect of the 3rd right rib and 8th right rib, lucent focus at T3 vertebral body and tiny sclerotic foci at T10 vertebral body are stable. Mild hetero geneous texture in the body of the sternum is stable and may represent old healed fracture. 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 There is persistent periapical lucency around this re [facility] [place] [facility] maining erupted right mandib ular molar, without destructive mandibular cortex lucency. The right parotid and level 2, nonnecrotic, nonenlarged lymph nodes are unchanged. EXAM: CT NECK WITH CONTRAST DATE: 06/20/2018 13:00 REFLOW OPERATOR INDICATION: 'C76.0 Malignant neoplasm of head, face and neck' ADDITIONAL INFORMATION: No c linic notes available at the time of interpretation. Imaging recurrence on 02/25/2017 and following the previous remote left hemimandibulectomy and free flap reconstruction, with subsequent repeat resec tion and fibular free flap reconstruction of the mandible on follow-up 07/22/2017. COMPARISON: CT neck 02/11/2018, 07/22/2017, 01/28 TECHNIQUE: Volumetric CT of the neck is acquired following intravenous administration of contrast. Axial, coronal and sagittal images are provided. FINDINGS: Postsurgical changes of prio r left mandibulectomy and partial maxillectomy with soft tissue free flap reconstruction, and subsequent symphyseal mandibulectomy and fibular free flap reconstruction. The c omponents of the free flap a re unchanged in alignment. The osteotomies remain sharp and nonunited on the right. Surgical hardware is unchanged with no perihardware lucency. The left mandibular surgical plate and again is not unite d with the left mandibular body reconstruction surgical bar. The midline oral tongue dawood cent to the soft tissue flap margin remains globular and masslike, a finding that is unchanged since 07/22/2017 and amenable to direct inspection. The abnormal density is 1.5 x 3.1 cm (series 4 image 61). Expected posttreatment relat ed changes throughout the neck, including submucosal edema, fat stranding, and skin thickening. No pathologically enlarged, necrotic, or otherwise abnormal cervical lymph nodes. No masslike or pathologic en hancement elsewhere to indicate a 2nd primary malignancy. No findings within the inclu ded brain, lungs, or osseous structures to suggest distant metastases. Unchanged lucent 4 mm lesion in the T3 vertebral body. Unchanged severe spinal canal stenosis at C3-C4 and C5-C6. The left parotid gland remai ns atrophic. Left middle ear and mastoid effusion are stable. IMPRESSION: 1. Globular masslike soft ti ssue of the oral tongue adjacent to the soft tissue flap margin, a finding that is unchanged since 07/17/2017 and amenable to direct inspection. 2. No abnormal cervical lymph nodes. 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 Multiple recurrence status post resection and chemotherapy in 2008 and resection with flap reconstruction 02/2017 COMPARISON: CT of the neck dated TECHNIQUE: Axial CT images of the neck were obtained after intravenous contrast. Reformatted images in the sagittal and coronal plane were included. IV contrast: 100 mL Omnipaque 350. DLP: 1379 mGy-cm. FINDINGS: There are extensive postoper ative changes of left maxillectomy and left and symphyseal mandibulectomy with bone and free flap reconstruction which remain stable in appearance. There is no evidence of khan rdware complication. There i s no new or progressive nodular enhancement identified in the surgical bed to suggest local recurrence. There are postsurgical acuña es of prior neck dissection. There is no new or enlarging cervical lymphadenopathy. The left parotid gland is at rophic. The submandibular glands have been resected. The right parotid gland and thyroid are unremarkable. Imaged portions of the paran emre sinuses and mastoid air cells are clear. Calcifications are noted at bilateral carotid bulbs and carotid siphons. Limited evaluation of the intracranial compartment is u nremarkable. There are no de structive bone lesions. The lung apices are clear. IMPRESSION: 1. Redemonstration of posto perative changes of the mandibulectomy and maxillectomy with flap reconstruction surgery. No new enhancing nodule to represent local or randi recurrence. Continued follow-up is recommended to ensure stability. 2. No pathologic enlarged neck lymphadenopathy is identified. 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 CT 02/25/2017. TECHNIQUE: Volumetric CT of the chest is acquired following intravenous administration of contrast. Axial, coronal and sagittal images are provided. IV Contrast: 100 mL Omnipaque 350. DLP: 1379.81 mGy-cm FINDINGS: There is a new 3 mm nodule i n the right lower lung on image 202. Scattered bilateral pulmonary nodules measuring up to 3 mm are stable since 02/25/2017, such as in the right lung on images 87, 45, 50, 67 and 74, in the left lung on images 35, 48, 114 and 129 of series 3. A discrete 6 mm right lower lobe nodule on image 188 of series 2 is stable since 02/25/2017. There are no enlarged medias tinal, hilar, axillary or supraclavicular lymph nodes. Please refer to same date CT neck for further evaluation of these region. The heart is normal in size. The aorta and main pulmonary artery have normal caliber. There are atherosclerotic changes in the aorta and coronary arteries. No pleural or pericardial effusions. Noncalcif ied plaque at the takeoff of the left subclavian artery narrows the lumen by approximately 50% is unchanged. Small apparent filling defect in the left jugular vein is unchanged. The adrenal glands are normal. The spleen is not enlarged. A 5 mm lucent focus at T3 ve rtebral body on image 59 of series 2 is stable since 02/25/2017, likely degenerative. Tiny sclerotic foci at T10 vertebral body on image 179 is also unchanged, most likely deg enerative. Mild heterogeneou s texture in the body of the sternum has improved since 02/25/2017 and may represent old healed fracture. No acute osseous lesions noted. IMPRESSION: 1. New 3 mm nodule in the r ight lower lobe may represent infectious/inflammatory etiology or metastasis. CT follow-up in 3 months is advised. 2. Discrete 6 mm right lowe r lobe nodule and scattered bilateral pulmonary nodules measuring up to 3 mm are stable since 02/25/2017 and can be reassessed on subsequent CT follow-up. 3. Noncalcified plaque at t he takeoff of the left subclavian artery narrows the lumen by approximately 50% is unchanged. 4. Small apparent filling d efect in the left jugular vein is unchanged. Sonographic study may be performed. 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 Axial, sagittal and coronal reconstructions. Axial MIP images were reformatted at the scanner workstation. IV Contrast: 100 mL of Omnipaque 350. DLP: 1136.84 mGy-cm COMPARISON: CT dated 02/25/2017 FINDINGS: Lines and Tubes: None. Heart and Great Vessels: Car diothoracic ratio measures 11.8/26.4 cm. There is atherosclerotic calcification of the right and left coronary arteries including the left anterior descending and left circum flex coronary arteries. Nonc alcified plaque at the takeoff of the left subclavian artery narrows the lumen by approximately 50%. This is best seen on axial images 49-56, unchanged from prior CT. There is no pericardial or pleural effusion.. Lymph Nodes: No hilar, media stinal, axillary or internal mammary lymphadenopathy. Lungs: 2 mm peripheral righ t upper lobe nodule on axial images 35, 61 and 108. 3.5 mm right lower lobe nodule on axial image 168. 2 mm upper lobe nodule on axial image 104 These nodules are unchanged from 02/25/2017. No new pul monary nodules or masses to suggest new metastatic disease to the lungs. Trachea and central bronchi: Unremarkable. Apparent filling defect in t he small left jugular vein best seen on axial image 14. Ultrasound of the jugular venous system on the left is recommended. Upper abdomen: Unremarkable. Bones and Soft Tissues: No destructive skeletal lesion identified. IMPRESSION: 1. Five tiny pulmonary nod ules as described in the body of the report. These nodules are unchanged from 02/25/2017. No new pulmonary nodules or masses to suggest new metastatic disease to the lungs. 2. Atherosclerotic calcifi cation of the right and left coronary arteries including the left anterior descending and left circumflex coronary arteries. 3. Noncalcified plaque at t he takeoff of the left subclavian artery narrows the lumen by approximately 50%. This is best seen on axial images 49-56, unchanged from prior CT. 4. Apparent filling defect in the small left jugular vein best seen on axial image 14. Ultrasound of the jugular venous system on the left is recommended. 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 Reformatted images in the sagittal and coronal plane were included. IV contrast: 100 cc Omnipaque DLP: 1136 mGy-cm FINDINGS: Interval resection of the ri ght submandibular gland, resection of the symphysis and body of the mandible on the left side, and right-sided neck dissection were was performed. Tubular graft and screws and plates in the mandible were placed. Edema in the esophagus and t he epiglottis are identified, unchanged in appearance as compared to the previous exam, which may be represent posttreatment changes. Status post resection of the left mandib le-floor of the mouth, and p artial resection of the left maxilla, with placement of a flap is again noted, unchanged in appearance. I do not identify any pathol ogically enlarged lymph nodes. The jugulodigastric node on the right side measures 8 x 7 mm. IMPRESSION: Postoperative changes of res ection of the mandibular body and symphysis, with placement of a tubular graft, resection of the right submandibular gland and neck node dissection. Esophagus BA swallow Esophagus BA swallow functio n video DX Modified barium swallow: 05/04/2017 [facility] function video DX CLINICAL HISTORY: Oral dysph agia, mandible cancer Fluoro Time: 1.1 min / Dose: 66.59 mGy / DAP: 18.899 Gycm2 / Dr. Younger - R13.11 Dysphagia, oral phase TECHNIQUE: Fluoroscopic assi stance was provided for the speech pathologist for modified barium swallow examination. Varying consistencies of barium were administered po. FINDINGS: Moderate to large amount of residual barium is noted in both piriform sinuses. Laryngeal penetration is noted with nectar consistency barium and honey consistency barium primarily related to the passage of barium from the piriform sinuses into the la rynx. IMPRESSION: Laryngeal penetration is not ed with nectar consistency barium and honey consistency barium. SL: [id number] Chest 1view DX EXAM: XR CHEST 1 VIEW 03/29/2017 [facility] [place] edical DATE: 03/29/2017 3:00 AM CDT Cent er INDICATION: - s/p trach. FINDINGS: Comparison is made to yesterday. The cardiomediastinal silhou ette is stable. The lungs are clear. The costophrenic sulci are sharp, without effusions. There is a tracheostomy tube in place. There is a catheter over the right side of the neck with surgical clips. IMPRESSION: No change. The lungs are clear. Chest 1view DX EXAM: XR CHEST 1 VIEW 03/28/2017 [facility] edical DATE: 03/28/2017 3:00 AM CDT Cent er INDICATION: - s/p trach TECHNIQUE: AP chest IMPRESSION: A tracheostomy appliance is in place. The lungs are clear. No pneumothorax. Chest 1view DX EXAM: XR CHEST 1 VIEW 03/27/2017 [facility] edical DATE: 03/27/2017 3:00 AM CDT Cent er INDICATION: - s/p trach TECHNIQUE: AP chest IMPRESSION: Tracheostomy appliance is in place. A drain is projecting over the neck. The lungs are clear. Chest 1view DX EXAM: XR CHEST 1 VIEW 03/26/2017 [facility] edical DATE: 03/26/2017 3:00 AM [facility] er INDICATION: - s/p trach. FINDINGS: Comparison is made to yesterday. The cardiomediastinal silhou ette is stable with an ectatic aorta. There is a tracheostomy tube in place. Platelike atelectasis is see n in the left lung base but otherwise the lungs are clear and well-expanded. No pleural effusions are identified. IMPRESSION: No change. Chest 1view DX EXAM: XR CHEST 1 VIEW 03/25/2017 [facility] edical DATE: 03/25/2017 3:00 AM [facility] er INDICATION: - s/p trach. FINDINGS: Comparison is made to March 24. The cardiomediastinal silhou ette is stable with ectatic aorta. There is a tracheostomy tube in place. The Dobbhoff feeding tube has been removed. There is a drain over the ri ght side of the neck. There is a safety pin over the soft tissues of the right lateral chest wall presumably external to the patient. Platelike atelectasis is see n in the left lower lobe. The lungs are otherwise clear. No pleural effusions are identified. IMPRESSION: Mild left lower lobe platelike atelectasis. The lungs are otherwise clear. Chest 1view DX EXAM: XR CHEST 1 VIEW 03/24/2017 [facility] edical DATE: 03/24/2017 3:00 AM [facility] er INDICATION: - s/p trach. FINDINGS: Comparison is made to yesterday. The cardiomediastinal silhou ette is stable with ectatic and tortuous aorta. There is platelike atelectasis in the left lower lobe but otherwise the lungs are clear. No pleural effusions are identified. Life support lines and tubes remain in place. Please note that the tip of the Dobbhoff feeding tube is barely within the stomach. IMPRESSION: 1. The tip of the Dobbhoff f eeding tube is barely in the gastric fundus. Please consider advancing it several centimeters deeper toward the duodenum. 2. Left lower lobe platelike atelectasis. Chest 1view DX EXAM: XR CHEST 1 VIEW 03/23/2017 [facility] edical DATE: 03/23/2017 3:00 AM [facility] er INDICATION: - s/p trach. FINDINGS: Comparison is made to March 22. The cardiomediastinal silhou ette is stable with ectatic and tortuous aorta. There is mild platelike atelectasis at the left lung base but otherwise the lungs are clear clear. No pleural effusions are identified. Life support lines and tubes are stable. The tip of the Dobbhoff feeding tube overlies the proximal stomach. Consider advancing the Dobbhoff feeding tube further toward the duodenum. Note is made of a safety pin over the right upper quadrant of the abdomen, presumably external to the patient. IMPRESSION: No significant change from yesterday morning. Gastric tube EXAM: VIR Gastrostomy tube placement 03/23/2017 [facility] DATE: 03/23/2017 7:25 AM [facility] PROCEDURE(S) PERFORMED: Fluo roscopic guided percutaneous gastrostomy tube placement. 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 Patient had recent surgery with free flap reconstruction. He needs nutritional support. FACULTY: Elroy Adams MD RESIDENT/FELLOW/OUTSOLE SPLICER: Shanda He SUPERVISION: Level 1 Direct supervision: The supervising provider is physically present with the patient during the procedure. ANESTHESIA/SEDATION: Moderate sedation PHYSICIAN SUPERVISED ANESTHESIA TIME: 30 min SPECIMEN: None DRAINS: None ESTIMATED BLOOD LOSS: Less than 10 cc COMPLICATIONS: None immediate FLUOROSCOPY TIME: 3.4 min RADIATION DOSE: 46.6 mGy PROCEDURE: After the risks, benefits, a nd alternatives of the procedure were explained to the patient, verbal and written consent were obtained and a copy was placed on the chart. The patient was brought to the an giography suite and a time-o ut was performed. Preliminary ultrasound was used to alexis the inferior left hepatic lobe edge on the skin with a marker. The left epigastrium was prepped and draped in the us ua sterile fashion. IV Vers ed and Fentanyl were titrated for moderate sedation by a trained observer. 1 gram Ancef was given as a prophylactic antibiotic. The patient has a previously placed NG tube. After administration of 1 mg glucagon IV, the stomach was insufflated with air via the nasogastric tube. The distal gastric body was then accessed via a percutaneous approach with an 18-gauge needle. In traluminal location was conf irmed by air aspiration and contrast injection. A T-fastener gastropexy device was deployed into the stomach through the needle and secured to the skin. A second and 3rd T-fa stener were deployed adjacen t to the first using the same technique. The stomach was again accessed between the 3 T-fasteners using an 18-gauge needle. Intraluminal needle location was confirmed by air aspiration and contrast inje ction, and then a stiff guidewire was passed into the stomach. Serial dilations were perfor med over the wire. A 22 [place]an peel-away sheath was then placed over the wire into the stomach under fluoroscopic guidance. An 18 Fr RAHUL/Ross gastrostomy tube was deployed in to the stomach through the p eel-away sheath. The retention balloon was inflated with 9 ml of dilute contrast and withdrawn to the anterior gastric wall. Contrast was injected through the gastrostomy tub e to confirm position. The c atheter was secured to the skin, flushed, and placed to gravity drainage. FINDINGS: See procedure section. IMPRESSION: 1. 18 Venezuelan gastrostomy tu be successfully placed without immediate complications. The catheter is to remain to gravity drainage until cleared for use by a gastrostomy tube check tomorrow. 2. Please note that gastrop exy sutures will absorb with time and do not need to be removed. 3. No feeding subcutaneous until 9:00 AM 03/24/2017. Okay to start feedings after that. Dr. Elroy Adams MD was present for the proce dure. Chest 1view DX EXAM: XR CHEST 1 VIEW 03/22/2017 [facility] edical DATE: 03/22/2017 3:00 AM CDT [facility] er INDICATION: - s/p trach COMPARISON: Chest radiograph 03/21/2017 TECHNIQUE: AP chest FINDINGS: Lines, tubes and hardware: T he tracheostomy tube and Dobbhoff tube are stable in position. Lungs and pleura: A hazy air space opacity seen in the left lower lung, possibly representing atelectasis and/or consolidation. The costophrenic sulci are sharp. No definite pneumothorax is seen within the limitations of this semierect radiograph. Heart and mediastinum: The c ardiac mediastinal silhouette is stable. Mild atherosclerotic calcifications affect the aorta. Bones: No acute bony abnormality is identified. IMPRESSION: 1. Left lower lung airspace opacity, possibly representing atelectasis and/or consolidation. 2. Dobbhoff tube terminates in the stomach fundus and advancement is recommended. Chest 1view DX EXAM: XR CHEST 1 VIEW 03/21/2017 [facility] edical DATE: 03/21/2017 Center INDICATION: - s/p trach . Comparison is made w ith yesterday FINDINGS: Cardiomediastinal silhouette and life-support lines are unchanged. Costophrenic sulci are sharp without effusion. The lungs are clear IMPRESSION: No significant interval change when compared to prior radiograph. Chest 1view DX EXAM: XR CHEST 1 VIEW 03/20/2017 [facility] edical DATE: 03/20/2017 Center INDICATION: - s/p trach . Comparison is made w ith yesterday FINDINGS: Cardia mediastinal silhouette and life -support lines are unchanged. Bilateral small pleural effu sions are unchanged. No pneumothorax is visualized however a supine or semierect radiograph is suboptimal for that determination. An erect film of the chest is necessary in order to exclude small pneumothoraces. There is platelike atelectas is at the left lung base. Otherwise, the lungs are clear IMPRESSION: No significant interval change when compared to prior radiograph. Chest 1view DX EXAM: XR CHEST 1 VIEW 03/18/2017 [facility] edical DATE: 03/18/2017 3:00 AM CDT Cent er INDICATION: s/p trach - s/p trach TECHNIQUE: AP chest IMPRESSION: A tracheostomy appliance is in place. Feeding tube extends to the stomach and can be a dvanced to the duodenum. Left basal opacity, which co uld represent layering pleural fluid, subsegmental atelectasis. No definite pneumothorax. Hardware overlying the upper chest/lower neck, somewhat limits evaluation of fine detail. Chest 1view DX EXAM: XR CHEST 1 VIEW 03/18/2017 [facility] edical DATE: 03/19/2017 3:00 AM CDT Cent er INDICATION: s/p trach - s/p trach COMPARISON: Chest radiograph 03/18/2017 TECHNIQUE: AP chest FINDINGS: Lines, tubes and hardware: T he tracheostomy tube is stable in position. A Dobbhoff tube courses below the diaphragm with its tip collimated out of view. Lungs and pleura: Mild left basilar atelectasis remains. A small left pleural effusion is present. No definite pneumothorax is seen. The right lung is grossly clear. Heart and mediastinum: The c ardiomediastinal silhouette is stable. The aorta is mildly tortuous and calcified. Bones: No acute bony abnormality is identified. IMPRESSION: 1. No significant interval change compared to t he prior study. Abdomen AP DX EXAM: Abdomen AP DX 03/17/2017 [facility] DATE: 03/17/2017 at 2146 hours Ce nter INDICATION: DHT gastric placement ADDITIONAL INFORMATION: None. COMPARISON: None. TECHNIQUE: Limited AP view of the abdomen for tube placement assessment. Number of images: 1 FINDINGS: Transesophageal feeding tube , without guidewire: Extends into the proximal stomach. Transesophageal gastric suction tube: None. Other tubes and lines: None. There is no gastric, large o r small bowel dilatation. There is bibasilar subsegmental atelectasis, greater on the left. IMPRESSION: 1. Feeding tube extends to the proximal stomach. Recommend further advancement of the feeding tube into the duodenum for feeding purposes. 2. Nonobstructive bowel gas pattern. 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 Axial, sagittal and coronal reconstructions. Axial MIP reconstructions are created at the acquisition workstation. IV Contrast: 100 mL of Omnipaque 350. DLP: 1330 mGy-cm for the CT neck and chest. COMPARISON: No available prior chest CTs for myla crane. FINDINGS: Lines and Tubes: None. Lower Neck: Relatively smal ler left thyroid lobe which may be due to prior partial thyroidectomy. Heart and Great Vessels: No cardiomegaly. No pericardial effusion. Calcifications are seen along the 3 coronary arteries. Aortic atherosclerotic disease. Mural thrombus/noncalcified atheromatous plaque seen along the proximal port ion of the left subclavian artery (axial image 63). Normal size of the ascending aorta. Normal size of the main pulmonary artery. No central pulmonary embolism. Lymph Nodes: No hilar, media stinal, axillary or internal mammary lymphadenopathy. Lungs: Few small solid lung nodules are seen in both lungs and annotated on the axial images measuring up to 4 mm in size (axial image 177 in the right lower lobe). Pleura: No pleural effusion or pneumothorax. Upper abdomen: Unremarkable. Bones and Soft Tissues: Hete rogenous texture in the body of the sternum which may represent healed old fracture. Focal osseous lesion cannot be totally excluded. Degenerative changes of the thoracic spine. IMPRESSION: 1. Few bilateral solid nonc alcified pulmonary nodules measuring up to 4 mm in size and annotated on the axial images, indeterminate by CT size criteria. 2. Heterogeneous osseous le timo in the sternum which may represent healed old fracture. Neoplastic process cannot be excluded. Attention the subsequent follow-up is recommended. 3. Please refer to the sepa rate report of neck soft tissue CT for further details about the neck findings. 4. Aortic and coronary calcifications are noted . 5. Mural thrombus/noncalcif ied atheromatous plaque with moderate narrowing seen along the proximal portion of the left subclavian artery. RECOMMENDATIONS: Given the p atdaniel's history of neoplastic process, chest CT follow-up in 3 months is recommended for further evaluation of the pulmonary nodules. 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 Reformatted images in the sagittal and coronal plane were included. IV contrast: 100 mL Omnipaque 350 ESTIMATED DOSE: Total DLP 751.47 mGy*cm FINDINGS: The patient has undergone ex tensive surgery on the left with removal of the maxillary alveolar ridge and inferior portion of the maxillary sinus. Pterygoid plates have been preserved. A second operative site invo lves the left aspect of the mandible were a mandibulectomy was performed with placement of a fibular graft posteriorly and accompanying anterior marginal mandibulectomy reach ing the midline. Fixation khan rdware is intact without evidence of fracture, loosening, or displacement. Numerous surgical kimberly ar e seen throughout the region of surgery. A surgical flap has been rotated into the maxillary site for reconstruction of the region of the lateral soft palate and lateral aspe ct of the oral cavity as wel l as the surface overlying the mandibular reconstruction. Focal increased attenuation is identified at the anterior margin of the surgical flap adjacent to the marginal mandibulectomy in the midline (series 4 image 52 corresponding to series 501B image 17 and series 500 B image 52) this is just to the left of midline. This area of increased attenuation measures approximately 10 mm x 9 mm. Extends from the mucosal surface down to the margin of the mandibulectomy itself. The bone deep to the residua l right lateral incisor is relatively hypodense and demonstrates a focal area of managed attenuation measuring approximately 9 mm in transverse diameter with an AP diameter o f 6 mm and a depth of involv ement of approximately 6 to 8 mm (sagittal image 500 B image 53). The nasopharynx, oropharynx and oral cavity are otherwise normal. The hypopharynx and larynx are normal. A level 1B lymph node is not ed on the right with subtle, punctate, foci of hypodensity within its periphery. No pathologically enlarged lymph nodes are identified. The salivary glands on the r ight including the parotid and submandibular glands are normal. Left parotid and submandibular glands have been removed. The thyroid gland is asymmetric with the left lobe be ing hypoplastic and the right lobe demonstrating compensatory hypertrophy. No additional soft tissue asymmetry is present. Imaged portions of the right paranasal sinuses and right mastoid air cells are clear. There is opacification of the left frontoethmoid recess with partial opacification of the left frontal sinus. A conc khan bullosa is noted on the l eft. No nasal cavity mass is present. Left mastoid air cells and middle ear are opacified. Imaged portions of the brain and orbits are unre markable. Diffuse degenerative changes of the cervical spine are present with reversal of the cervical lordotic curvature at C3-C4 and multilevel spinal stenosis, most pronounced at this level where cord impingem ent is likely. Osseous structures are otherwise normal. The lung apices are clear. IMPRESSION: 1. Postoperative change on t he left involving the maxilla and mandible with focus of increased attenuation at the medial aspect of the marginal mandibulectomy site concerning for recurrent disease. The location should be amenable to direct inspection . 2. Abnormal appearance of th e mandible deep to the residual right lateral incisor also concerning for neoplastic involvement. 3. A solitary level 1B lymph node is present on the right. Although measuring less than 12 mm in transverse diameter there are tiny punctate foci of decreased attenuation within its periphery best seen on high-resolution monitors (series 4 image 61 and series 501B image 39). Assuming these are not artifactual, and they do not appear to be, they would make this lymph node abnormal based on morphology e teresa in the absence of enlargement. No other thi opathy. 4. Left frontoethmoid sinus opacification. 5. Left mastoid and middle e ar effusion are likely evidence of eustachian tube dysfunction related to radiation therapy. 6. 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 Consultation Notes No Data Provided for This Section Discharge Summaries No Data Provided for This Section History and Physicals No Data Provided for This Section Vital Signs Vital Sign Value Date Comments Source Heart Rate 68 06/30/2018 [facility] Temperature Oral (F) 97.8 F 06/30/2018 [facility] Systolic (mm Hg) 149 06/30/2018 [facility] dical [place] Diastolic (mm Hg) 73 06/30/2018 [facility] Respitory Rate 18 06/30/2018 [facility] Respitory Rate 18 06/30/2018 [facility] Systolic (mm Hg) 123 06/30/2018 [facility] dical Center Diastolic (mm Hg) 68 06/30/2018 [facility] Systolic (mm Hg) 147 06/30/2018 [facility] dical Center Diastolic (mm Hg) 83 06/30/2018 [facility] Respitory Rate 16 06/30/2018 [facility] Heart Rate 69 06/30/2018 [facility] Temperature Oral (F) 97.6 F 06/30/2018 [facility] Temperature Oral (F) 97.6 F 06/30/2018 [facility] Heart Rate 78 06/30/2018 [facility] BMI Calculated 25.02 06/27/2018 [facility] Weight 79.091 06/27/2018 [facility] Height 177.8 cm 06/27/2018 [facility] Systolic (mm Hg) 117 03/29/2017 [facility] dical Center Diastolic (mm Hg) 68 [facility] [place] Resp[facility] Rate 18 03/29/2017 [facility] Heart Rate 84 03/29/2017 [facility] Respitory Rate 18 03/29/2017 [facility] Systolic (mm Hg) 136 03/29/2017 [facility] dical Center Diastolic (mm Hg) 82 03/29/2017 [facility] Heart Rate 86 [facility]/29[facility] Respitory Rate 18 03/29/2017 [facility] Systolic (mm Hg) 134 03/29/2017 [facility] Diastolic (mm Hg) 73 03/29/2017 [facility] Heart Rate 72 03/29/2017 [facility] Temperature Oral (F) 98.2 F 03/27/2017 [facility] Temperature Oral (F) 98.1 F 03/25/2017 [facility] Temperature Oral (F) 98.1 F 03/25/2017 [facility] Height 177.8 cm 03/18/2017 [facility] Height 177.8 cm 03/18/2017 [facility] Weight 83.636 03/18/2017 [facility] Height 177.8 cm 03/18/2017 [facility] Weight 83.636 03/17/2017 [facility] BMI Calculated 26.46 03/17/2017 [facility] Encounters Location Location Encounter Encounter Reason Attending ADM [place] Stat us Source Details Type Number For Provider Date Date Visit [facility] Outpt Diag [id number] Michael Diaz 02/25 02/26 [facility]2016 [facility] Inpatient [id number] Michael Diaz 03/17 03/29 [facility] /2016 [facility] Outpatient [id number] Rodríguez Escamilla 05/04 05/05 [facility] /2016 [facility] OP Therapy [id number] Rodríguez Escamilla 05/11 06/10 [facility] Patients /2016 [facility] [place] [facility] [place] [facility] Outpt Diag [id number] Michael Diaz 07/22 07/23 [facility]2017 [facility] Outpt Diag [id number] Michael Diaz 02/11 02/12 [facility]2017 [facility] Outpt Diag [id number] Michael Diaz 06/20 06/21 [facility] /2017 [facility] Bedded [id number] Michael Diaz 06/29 06/30 [facility] Cordero Outpatient /2018 [facility] Outpt Diag [id number] Michael Diaz 06/22 06/23 [facility]2018 [facility] Procedures Procedure Code Date Perfomer Comments Source Removal [id number] [facility] [place] [place] Assessment and Plan Assessment and Plan Date Source Extracted from:Title: ENT DC Summary 03/29/2017 [facility] Author: Arnie Harvey MD Date: 03/29/17 ENT Discharge Summary Date of Admission: 03/17/17 Date of Discharge: 03/29/17 Admitting Attending: Michael Diaz Admission Diagnosis: 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 INTERNAL FIXATION OF RIGHT RADIUS. [id number] Primary Surgeon: Michael Diaz MD (S ervice: ENT) 03/17/17 08:39 REMOVAL OF MIDLINE ANTHONY OR OF MOUTH AND TONGUE, RIGHT NECK DISSECTION, TRACHEOSTOMY, LARYNGOSCOPY, RIGHT RADIAL FOREARM FREE FLAP, RIGHT THIGH SPLIT THICKNESS SKIN GRAFT, AND NECK VESSEL EXPLORATION. INTERNAL FIXATION OF RIGHT RADIUS. [id number] Primary Surgeon: Michael Diaz MD (S ervice: ENT) 03/17/17 08:39 REMOVAL OF MIDLINE ANTHONY OR OF MOUTH AND TONGUE, RIGHT NECK DISSECTION, TRACHEOSTOMY, LARYNGOSCOPY, RIGHT RADIAL FOREARM FREE FLAP, RIGHT THIGH SPLIT THICKNESS SKIN GRAFT, AND NECK VESSEL EXPLORATION. INTERNAL FIXATION OF RIGHT RADIUS. [id number] Primary Surgeon: Michael Diaz MD (S ervice: ENT) 03/17/17 08:39 REMOVAL OF MIDLINE ANTHONY OR OF MOUTH AND TONGUE, RIGHT NECK DISSECTION, TRACHEOSTOMY, LARYNGOSCOPY, RIGHT RADIAL FOREARM FREE FLAP, RIGHT THIGH SPLIT THICKNESS SKIN GRAFT, AND NECK VESSEL EXPLORATION. INTERNAL FIXATION OF RIGHT RADIUS. 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 He presents for planned resection of oral mass and reconstruction with right radius os teocutaneous forearm free flap. The gely ent had some diarrhea during his hospital stay that resolved after removing antibiotics and concentrating the patient's tube feed regimen. The patient did well post-operatively. T hey were able to tolerate PO intake, had good urinary output, pain was well controlled. They were discharged home with clinic follow up. Disposition: Home Condition: Stable Diet: Tubefeeds as prescribed. Discharge medications: Please see home medication reconciliation form. Activity: No lifting anything heavier th an a bottle of water with the right hand. No lifting anything heavier than 10 lbs with the left hand. No strenuous activity. Special Instructions: Avoid applying creams or lotions on the incision No driving within 6h of narcotics or sedatives Keep all wounds dry Follow ups: Follow up with [facility] [place] 1-[address] Diaz and Dr. Escamilla. Please make appointment by calling [phone]. Arnie Harvey M.D. 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 -Debility: Patient having working with occupational therapy and physical therapy. He is able to walk multiple times independently around the nurses station. Patient denies any weakness in the right lower extremity Patient to continue to walk daily. -Dysphagia: Currently n.p.o. PEG tube in place. Gely ent will not be able to eat until hewill be clearbyENT. I discussed with the patient the importa nce of restarting swallowing exercises. Patient will be discharged home with home healthnursing. We will have Millicent/speech therapy eval uate patient when he comes back for follow-up at the ENT clinic. -Communicationimpairment/dysphonia: Trach in place, patient tolerating trial s with Passy-Luma valve. He has many questions about removal of his trach. I explained to patientthatwe should notremove his trach for now. This will be reevaluat ed next time that he has a follow-up with ENT clinic. Communication also impaired secondary to the swelling on the rightside of his face. -Risk for head and neck lymphedema: Currently has swelling status postsurgery and reconstruction . We will continue to reevaluate. -Exercise counseling: Patient advised todo at least 30 minutes of moderate physical activity daily. Importance of exercise was explained to the patient. -Disposition: Patient will be going home with [facility]. Patient to follow-up in the ENT clinic on a . Chronic hypertension H/O hyperlipidemia Squamous cell carcinoma of oral cavity Extracted from:Title: Operative Note Author: Rodríguez Escamilla MD Date: 03/17/17 Operative Note Date of surgery: 03/17/17 Preoperative Diagnosis: oral cavity squamous cell carcinoma Postoperative diagnosis: oral cavity squamous cell carcinoma Procedure performed: 1. right radial forearm osteocutaneou s free flap (skin 5 x 8 cm, bone 6 cm, artery end to end into right facial artery, vein end to end into right facial vein with 2.5 mm crm functional analyst and a 2nd vein from the superficial system to the branch of the facial vein end to end with a 3.0 mm crm functional analyst) 2. Split thickness skin graft from the right thigh to the right arm 3. Exploration of the neck for vessels Attending Surgeon: Rodríguez Escamilla MD Earth Science Technician Surgeon: Gary Renee MD. No resid ents or fellows with the appropriate skill level were available to assist with the case. Indications for surgery: Patient with or al cavity SCCA involving the mandible. Patient will undergo wide local excision by Dr. Diaz and I will be performing the reconstruction with an osteocutaneous ra dial forearm flap. All the risks and sabrina efits of the surgery were discussed with the patient including hematoma, infection, possible need for revision surgery, flap failure, numbness of the hand and dam age to surrounding structures of the blanco d, pathologic fractures of the hand and decreased strength. Complications: none EBL: 100 ml Specimens: none Blood: none Anesthesia: general Implants: Synthes mandible plate, screws Drains: 10 flat SACHI drain in the arm and 2 in the neck Description of procedure: After the resection portion of the surge ry was completed by Dr. Diaz, the patient was noted to have a large defect of the midline mandible and floor of mouth. The surgical site in the on the right fo rearm was prepped and draped in usual sterile fashion. A surgical time out was called and the patient, pro cedure, and site were confirmed. After outlining a 5 x 8 cm skin paddle proximal to the wrist crease by 2.5 cm and with a slight ulnar bias, a STSG was taken from right thigh and set aside for later use in reconstructing the forearm defect. Anincision was made through the planned skin incision with a #15 blade. And into the proximal forearm. The superficial system of veins was identified and preserved. Dissection between the brachioradialis a nd flexi carpi radialis was performed the distal radial artery and venae were identified and clipped, then transected. Prior to transection, a bulldog was placed on the radial artery and it was noted th at the thenar eminence had good capillary refill. Next, the styloid process distally was identified and at least 3 cm of bone was left from this distal edge and m arked. Then the flexor digitorum superfi cialis, pronator quadratus and flexor policis longus muscles were from the radius. A distance of 6 cm of bone was marked from the previously marked site . The proximal most edge was checked and was not near the insertion of the pronator teres. Then, the radius bone height was measure proximally and noted to be 1.7 cm and the bone. Approximately 7 mm of bone were marked from the volar edge. Ci rcumferentially only 8 mm of bone will be taken for harvest in order to leave at least 50 percent of the radius bone in place. Osteotomies were made using a sagit jeronimo saw longitudinally first and then th e horizontal cuts were made in a keel like fashion to complete the osteotomies. The dorsal aspect of the radial bone was exposed by placing the arm in pronation a nd the periosteum was incised medial to the brachioradialis. This freed the bone that was harvested along with the soft tissue overlying it. The flap was raised from distal to proxi mal, clipping any muscular perforators encountered. The radial nerve and all its branches were preserved. The pedicle was dissected proximally unt il the take off of the ulnar artery and vein was seen. The flap was clipped distal to this take off and made ischemic. It was immediately irrigated with heparinized saline and passed to the head and neck. The orthopedics team plated the arm and please see their note for details of this procedure. The flexor digitorum superficialis and flexor policis longus were reapproximated to the plate and over the de fect to the skin in order to provide cov erage of the plate. Arm closure proximally was in layers with 3-0 vicyl in deep layer and nylon sutures in remaining skin. The STSG was applied to the full thickne ss skin deficit and secured with 4-0 chromic sutures. The arm was dressed with a wound VAC, and an leatha wrap. The carotid system on the ipsilateral si de was explored (RIGHT) and the facial artery identified and prepared via dissection for anastamosis. It was transected and tested with adequate flow. Using high powered magnification an end to end anastamosis was performe d with 9-0 nylon. The vein was coupled end to end with a 2 .5 mm crm functional analyst into the facial vein. The superficial system was also coupled in an end to end fashion with a 3 mm crm functional analyst to a branch of the facial vein. Clamps we re released and good flow noted on the skin paddle. The flap was inset into the defect by fi rst using a prebent mandibular 2.0 Synthes plate to plate the red cliff mandible and hold the radial bone in place in the defect. 4 screws were placed bicortically a long the left body of the mandible to ho ld the prebent plate in place and 3 monocortical screws were placed in the radial bone to secure this. The plate was along the inferior border of the mandible luke ng with the radial bone. There were 4 sc rews placed on the right body of the residual mandible as well. The right posterior aspect of floor of mouth was first closed primarily. The skin paddle from the flap was inset into the floor of mouth m ucosa anteriorly and to the left ALT flap from a previous surgery using 3.0 chromic sutures in a horizontal mattress fashion. The lip split incision and neck incisions were closed. The wounds were irrigated and two 10 fla t drains placed in the neck. A dophoff tube had been previously placed via the nares. The neck closure was performed in layers with 3-0 vicryl in the platysmal and nylon on the skin. The patient was transferred to the PACU in stable condition. All counts were correct at the end of the case. Condition: stable Plan of Care No Data Provided for This Section Social History Social History Date Source Social History TypeResponse 06/27/2018 [facility] Substance Abuse Use: None. Alcohol Current, Frequency: Daily. Smoking Status Former smoker; Exposure to Tobacco Smoke None; Cigarette Smoking Last 365 Days No; Reg Smoking Cessation Counseling No1 entered on: 06/29/18 1QUIT SMOKING 2006 Social History TypeResponse 06/27/2018 [facility] Alcohol Current, Frequency: Daily. Substance Abuse Use: None. Smoking Status Former smoker; Exposure to Tobacco Smoke None; Cigarette Smoking Last 365 Days No; Reg Smoking Cessation Counseling No1 entered on: 06/29/18 1QUIT SMOKING 2006 Social History TypeResponse 03/17/2017 [facility] Smoking Status Former smoker; Exposure to Tobacco Smoke None; Cigarette Smoking Last 365 Days No; Reg Smoking Cessation Counseling No1 1QUIT SMOKING 2006 Social History TypeResponse 03/17/2017 [facility] Smoking Status [place] Former smoker; Exposure to Tobacco Smoke None; Cigarette Smoking Last 365 Days No; Reg Smoking Cessation Counseling No1 1QUIT SMOKING 2006 Family History No Data Provided for This Section Advance Directives No Data Provided for This Section Functional Status No Data Provided for This Section
--- NOTE | 2019-12-17 17:09 | RAD REPORT ---
EXAM DESCRIPTION: aKren Single View12/17/2019 4:57 pm CLINICAL HISTORY: Weakness C03.1 COMPARISON: October 2019 FINDINGS: The lungs appear clear of acute infiltrate. The heart is normal size IMPRESSION: No acute abnormalities displayed
[2019-12-17] MEDS ORDERED: NA CHLORIDE 0.9% 500 ML ONE (17:18)
--- NOTE | 2019-12-17 17:22 | RAD REPORT ---
EXAM DESCRIPTION: CT - Head Brain Wo Cont - 12/17/2019 4:58 pm CLINICAL HISTORY: Ataxia COMPARISON: None TECHNIQUE: Computed axial tomography of the head was obtained. IV contrast was not requested. All CT scans are performed using dose optimization technique as appropriate and may include automated exposure control or mA/KV adjustment according to patient size. FINDINGS: Fluid collection is present along the right frontal and parietal convexities which is most ly low-density. However does contain areas of increased density superiorly. Shift of the midline structures 2 millimeters to the left is present. The ventricles are normal caliber. 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 Fluid within the sinuses/ mastoids is not seen. IMPRESSION: Small to moderate right subdural hematoma. It has the appearance of mostly being old. Ho wever it does contain areas of increased density which probably indicate superimposed acute/early marquez bacute component The exam was discussed with Doreen in the emergency room 5:15 p.m. December 17, 2019
[2019-12-17 17:39] LABS: Absolute Lymphocytes (CBC) 1.1 K/uL (0.7-4.9); Basophils % 0.4 % (0-1.3); Hematocrit 44.2 % (39.6-49.0); Lymphocytes % 21.1 % (15.3-44.8); MPV 7.3 fL (7.6-11.3); Protime INR 1.01; RBC Red Blood Cell Count 4.68 M/uL (4.33-5.43)
[2019-12-17 17:53] LABS: ALT/SGPT 39 U/L (12-78); AST/SGOT 53 U/L (15-37); Albumin 3.1 g/dL (3.4-5.0); Alkaline Phosphatase 125 U/L (45-117); BUN Blood Urea Nitrogen 8 mg/dL (7-18); Bicarbonate 26 mmol/L (21-32); Bilirubin Direct 0.3 mg/dL (0-0.2); Bilirubin Total 0.7 mg/dL (0.2-1.0); Glucose Level 117 mg/dL (74-106); Magnesium 2.2 mg/dL (1.8-2.4); NT PRO-BNP 41 pg/mL (<125); Potassium 3.8 mmol/L (3.5-5.1); Sodium Level 137 mmol/L (136-145); Troponin (Emerg Dept Use Only) < 0.02 ng/mL (0.0-0.045)
--- NOTE | 2019-12-17 18:27 | ER ---
Nurse's Notes [facility] Name: Timothy Bal Age: 74 yrs Sex: Male : 1945 Arrival Date: 12/17/2019 Time: 15:54 Bed 4 Private MD: Diagnosis: Subdural Hemorrhage Presentation: 12/16 16:04 Chief complaint: Patient's son or daughter states: Loss of appetite, weakness and ss unsteadiness that began a month ago. Pt was seen by Dr. Wilkinson 3 weeks ago and told patient he was dehydrated. "he began to get better, but a few days ago he started to get worse. He is just listless and he is falling more." Pt states, "I'm just dehydrated.". Coronavirus screen: Proceed with normal triage. Patient denies a cough. Patient denies shortness of breath or difficulty breathing. Patient denies measured and/or subjective temperature greater than 100.4F prior to today's visit. Patient denies travel on a cruise ship or to a country the [facility] currently lists as an affected area. Patient denies contact with known and/or suspected case of COVID-19. Ebola Screen: Patient denies exposure to infectious person. Patient denies travel to an Ebola-affected area in the 21 days before illness onset. Initial Sepsis Screen: Does the patient meet any 2 criteria? HR > 90 bpm. No. Patient's initial sepsis screen is negative. Does the patient have a suspected source of infection? No. Patient's initial sepsis screen is negative. Risk Assessment: Do you want to hurt yourself or someone else? Patient reports no desire to harm self or others. Onset of symptoms is unknown. 16:04 Method Of Arrival: Wheelchair ss 16:04 Acuity: CECIL 3 ss Historical: - Allergies: 16:08 No Known Allergies; ss - Immunization history:: Adult Immunizations up to date. - Social history:: Smoking status: Patient denies any tobacco usage or history of. Screenin:44 Abuse screen: Denies threats or abuse. Denies injuries from another. Nutritional ph screening: No deficits noted. Tuberculosis screening: No symptoms or risk factors identified. Fall Risk Fall in past 12 months (25 points). No secondary diagnosis (0 pts). IV access (20 points). Ambulatory Aid- None/Bed Rest/Nurse Assist (0 pts). Gait- Weak (10 pts.). Mental Status- Overestimates/Forgets Limitations (15 pts.). Total Mcfadden Fall Scale indicates High Risk Score (45 or more points). Fall prevention measures have been instituted. Side Rails Up X 2 Placed Close to Nursing Station Frequent Obs/Assessments Occuring Family Present and informed to notify staff if the need to leave the bedside As available patient and family educated on Fall Prevention Program and Strategies. Assessment: 17:44 General: Appears in no apparent distress. comfortable, slender, well groomed, Behavior ph is calm, cooperative, appropriate for age, Denies fever, feeling ill. Pain: Complains of pain in back. Neuro: Level of Consciousness is awake, alert, obeys commands, Oriented to person, place, Reports dizziness. Neuro: Denies blurred vision headache. Cardiovascular: Capillary refill < 3 seconds in bilateral fingers Patient's skin is warm and dry. Respiratory: Airway is patent Respiratory effort is even, unlabored, Respiratory pattern is regular, symmetrical. GI: Patient currently denies abdominal pain, nausea, vomiting. Derm: Skin is fragile, is thin, Skin is pink, warm \\T\\ dry. Musculoskeletal: Circulation, motion, and sensation intact. Range of motion: intact in all extremities. 18:10 Reassessment: Initiated transfer to [facility]. chairperson anesthesiology, Juani. ss 18:35 Reassessment: Attempted to call report to [facility], asked to call back, "In a ph few minutes". 19:02 Reassessment: Patient appears in no apparent distress at this time. Patient and/or ph family updated on plan of care and expected duration. Pain level reassessed. Patient is alert, oriented x 3, equal unlabored respirations, skin warm/dry/pink. Attempted to call report again at 1842, asked to call "main desk at [phone]", called main desk, placed on hold for approx 12 minutes. 19:41 Reassessment: Called and gave report the SANTOS Cruz at [facility] neuro ICU. Family vc given update on where we are with the transfer. Vital Signs: 16:04 BP 126 / 79; Pulse 101; Resp 16; Temp 97.8(TE); Pulse Ox 99% on R/A; Height 5 ft. 10 ss in. (177.80 cm); Pain 0/10; 16:30 BP 142 / 84; Pulse 82; Resp 18; Pulse Ox 98% on R/A; ph 17:46 BP 146 / 77; Pulse 79; Resp 18; Pulse Ox 97% on R/A; ph 18:30 BP 137 / 74; Pulse 83; Resp 14; Pulse Ox 97% ; sv ED Course: 15:54 Patient arrived in ED. fj1 16:07 Triage completed. ss 16:08 Arm band placed on right wrist. ss 16:11 Karla English, RN is Primary Nurse. ph 16:18 Tobin Jimenez NP is PHCP. pm1 16:18 Lori Lemons MD is Attending Physician. pm1 16:57 XRAY Chest (1 view) In Process Unspecified. EDMS 16:58 CT Head Brain wo Cont In Process Unspecified. EDMS 17:16 Patient has correct armband on for positive identification. Placed in gown. Bed in low mh5 position. Call light in reach. Side rails up X2. Adult w/ patient. Warm blanket given. campus monitor on. Pulse ox on. NIBP on. 17:17 EKG done, by ED staff, reviewed by Lori Lemons MD. mh5 17:35 Inserted saline lock: 22 gauge in right antecubital area, using aseptic technique. ph Blood collected. 19:19 No provider procedures requiring assistance completed. Patient transferred, IV remains ph in place. Administered Medications: 17:29 Drug: NS 0.9% 500 ml Volume: 500 ml; Route: IV; Rate: 1 bolus; Site: right antecubital; ph 19:22 Follow up: IV Status: Completed infusion; IV Intake: 500ml rv 19:22 Drug: Keppra 1000 mg Route: IV; Rate: calculated rate; Site: right antecubital; rv Intake: 19:22 IV: 500ml; Total: 500ml. rv Outcome: 18:25 ER care complete, transfer ordered by . pm1 20:23 Transferred by ground EMS to [facility], Transfer form completed. vc 20:23 Condition: stable 20:23 Instructed on the need for transfer. 20:23 Patient left the ED. vc Signatures: Dispatcher [employer] Sanaz Vega RN RN sv Smirch, Shelby, RN RN ss Hall Karla, RN RN ph Tobin Jimenez, DRY CELL ASSEMBLY SUPERVISOR DRY CELL ASSEMBLY SUPERVISOR pm1 Michelle Welch [facility] Armaan Peterson, RN RN rv Kasey Ramirez, RN RN Ulises Zamora [facility]
--- NOTE | 2019-12-17 18:28 | EDPHYS ---
Physician Documentation [facility] Name: Timothy Bal Age: 74 yrs Sex: Male : 1945 Arrival Date: 12/17/2019 Time: 15:54 Bed 4 Private MD: ED Physician Lori Lemons HPI: 12/16 16:35 This 74 yrs old Male presents to ER via Wheelchair with complaints of pm1 Weakness, Decreased Appetite. 16:35 The patient presents to the emergency department with weakness of the entire body, pm1 generalized weakness. Onset: The symptoms/episode began/occurred 3 week(s) ago. Associated signs and symptoms: Pertinent positives: generalized weakness and fatigue, Pertinent negatives: fever, headache, cough, N/V/D. Severity of symptoms: in the emergency department the symptoms are worse past two days per son. Patient's baseline: Neuro: alert and fully oriented, Motor: no deficits, Ambulation: walks without assistance, Speech: normal, with history of oral cancer. Current symptoms: memory issues and slight confusion per son. The patient has been recently seen by a physician: the patient's primary care provider, Dr. Wilkinson Patient was seen for the same complaint 3 weeks ago by PCP and was diagnosed with dehydration due to decreased PO intake. Discontinued one of his BP at that time. Patient slowly improved but according to the son, for the past 48 hours he has some confusion and generalized weakness. Patient has been falling approximately 2-3 times per week. Patient does not recall any hitting his head. No headache, neck pain. Patient with bruising to his bilateral knees and back but they are not painful. Historical: - Allergies: 16:08 No Known Allergies; ss - Immunization history:: Adult Immunizations up to date. - Social history:: Smoking status: Patient denies any tobacco usage or history of. ROS: 16:35 Eyes: Negative for injury, pain, redness, and discharge, ENT: Negative for injury, pm1 pain, and discharge, Neck: Negative for injury, pain, and swelling, Cardiovascular: Negative for chest pain, palpitations, and edema. 16:35 Respiratory: Negative for shortness of breath, cough, wheezing, and pleuritic chest pain, Abdomen/GI: Negative for abdominal pain, nausea, vomiting, diarrhea, and constipation, Back: Negative for injury and pain, : Negative for injury, bleeding, discharge, and swelling, MS/Extremity: Negative for injury and deformity. 16:35 Constitutional: Positive for poor PO intake, Negative for body aches, chills, fever. 16:35 Skin: Positive for bruising to back and bilateral knees. 16:35 Neuro: Positive for weakness, confusion, difficulty getting up from sitting position per son, Negative for dizziness, headache, numbness, tingling. Exam: 16:35 Constitutional: This is a well developed, well nourished patient who is awake, alert, pm1 and in no acute distress. Head/Face: Normocephalic, atraumatic. Eyes: Pupils equal round and reactive to light, extra-ocular motions intact. Lids and lashes normal. Conjunctiva and sclera are non-icteric and not injected. Cornea within normal limits. Periorbital areas with no swelling, redness, or edema. 16:35 Neck: Trachea midline, no thyromegaly or masses palpated, and no cervical lymphadenopathy. Supple, full range of motion without nuchal rigidity, or vertebral point tenderness. No Meningismus. Chest/axilla: Normal chest wall appearance and motion. Nontender with no deformity. No lesions are appreciated. 16:35 ENT: External ear(s): are unremarkable, Ear canal(s): are normal, Nose: no acute changes, Mouth: no acute changes. 16:35 Cardiovascular: Exam negative for acute changes, Rate: normal, Rhythm: regular, Pulses: no pulse deficits are appreciated. 16:35 Respiratory: Exam negative for acute changes, respiratory distress, shortness of breath. 16:35 Abdomen/GI: Inspection: abdomen appears normal, Palpation: abdomen is soft and non-tender, in all quadrants, mass, is not appreciated, rebound tenderness, is not appreciated. 16:35 Back: pain, is absent, normal spinal alignment noted. 16:35 Musculoskeletal/extremity: Extremities: grossly normal except: noted in the left knee and right knee: bruising, There is no evidence of decreased ROM, deformity, pain, tenderness. 16:35 Skin: Appearance: normal except for affected area, injury, bruising present to right mid back. No tenderness with palpation. 16:35 Neuro: Orientation: to person, place \T\ time. Mentation: Normal per my assessment but son reports that he appears a little slower than normal, Cranial nerves: CN II- XII are normal as tested, Cerebellar function: normal finger to nose testing, Motor: moves all fours, strength is normal, strength is 5/5 in all extremities, Sensation: is normal, no obvious gross deficits. Vital Signs: 16:04 BP 126 / 79; Pulse 101; Resp 16; Temp 97.8(TE); Pulse Ox 99% on R/A; Height 5 ft. 10 ss in. (177.80 cm); Pain 0/10; 16:30 BP 142 / 84; Pulse 82; Resp 18; Pulse Ox 98% on R/A; ph 17:46 BP 146 / 77; Pulse 79; Resp 18; Pulse Ox 97% on R/A; ph 18:30 BP 137 / 74; Pulse 83; Resp 14; Pulse Ox 97% ; sv MDM: 16:26 Patient medically screened. pm1 17:30 Counseling: I had a detailed discussion with the patient and/or guardian regarding: the pm1 historical points, exam findings, and any diagnostic results supporting the discharge/admit diagnosis, lab results, radiology results, the need to transfer to another facility, for higher level of care, [facility] does not immediately have the required specialist, Patient and family member prefer transfer to [facility]. Patient has oncologist there for history of oral cancer. 18:21 Data reviewed: vital signs. Data interpreted: Pulse oximetry: on room air is 97 %. pm1 Interpretation: normal. 18:25 Physician consultation: MD Goncalves was contacted at 18:22, regarding regarding pm1 transfer, patient's condition, and will see patient would like medications started, Keppra 1 gm IV. 12/16 16:31 Order name: Basic Metabolic Panel; Complete Time: 18:02 pm1 12/16 16:31 Order name: CBC with Diff; Complete Time: 18:02 pm1 12/16 16:31 Order name: LFT's; Complete Time: 18:02 pm1 12/16 16:31 Order name: Magnesium; Complete Time: 18:02 pm1 12/16 16:31 Order name: NT PRO-BNP; Complete Time: 18:02 pm1 12/16 16:31 Order name: PT-INR; Complete Time: 18:02 pm1 12/16 16:31 Order name: Troponin (emerg Dept Use Only); Complete Time: 18:02 pm1 12/16 16:31 Order name: XRAY Chest (1 view); Complete Time: 17:19 pm1 12/16 16:31 Order name: EKG; Complete Time: 16:33 pm1 12/16 16:31 Order name: Cardiac monitoring; Complete Time: 17:18 pm1 12/16 16:31 Order name: CT Head Brain wo Cont; Complete Time: 17:30 pm1 12/16 16:31 Order name: EKG - Nurse/Tech; Complete Time: 17:18 pm1 12/16 16:31 Order name: IV Saline Lock; Complete Time: 17:29 pm1 12/16 16:31 Order name: Labs collected and sent; Complete Time: 17:29 pm1 12/16 16:31 Order name: O2 Per Protocol; Complete Time: 17:29 pm1 12/16 16:31 Order name: O2 Sat Monitoring; Complete Time: 17:29 pm1 12/16 16:31 Order name: Orthostatic Blood Pressure; Complete Time: 17:18 pm1 Administered Medications: 17:29 Drug: NS 0.9% 500 ml Volume: 500 ml; Route: IV; Rate: 1 bolus; Site: right antecubital; ph 19:22 Follow up: IV Status: Completed infusion; IV Intake: 500ml rv 19:22 Drug: Keppra 1000 mg Route: IV; Rate: calculated rate; Site: right antecubital; rv Disposition: 12/17 07:05 Co-signature as Attending Physician, Lori Lemons MD. de2 Disposition: 12/17/19 18:25 Transfer ordered to [facility]. Diagnosis is Subdural Hemorrhage. - Reason for transfer: Higher level of care. - Accepting physician is Shaka Arana - Condition is Stable. - Problem is new. - Symptoms have improved. Signatures: Dispatcher [employer] EDTatianna Jacome RN RN ss Hall, Patricia, RN RN Tobin Jimenez, JOSSELIN CRUSHER FOREMAN pm1 Lori Lemons MD MD de2 Armaan Peterson RN RN rv Calcote, Vanessa, RN RN vc Corrections: (The following items were deleted from the chart) 12/16 20:23 18:25 12/17/2019 18:25 Transfer ordered to [facility]. Diagnosis is vc Subdural Hemorrhage. Reason for transfer: Higher level of care. Accepting physician is Shaka Kurtz. Condition is Stable. Problem is new. Symptoms have improved. pm1
[2019-12-17] MEDS ORDERED: NA CHLORIDE 0.9% 250 ML ONE (19:23)
[2019-12-17] MEDS ORDERED: LEVETIRACETAM 500 MG/5 ML VIAL IV ONE (19:23)
[2019-12-17 20:34] VITALS: TEMP 97.8
[2019-12-17 20:36] VITALS: O2SAT 97
[2019-12-17 20:38] VITALS: BP 137/74
== END 2019-12-17 20:23 | disposition short-term general hospital (02) ==
LOC: ER 15:52
DX: S06.5X0A Traumatic subdural hemorrhage without loss of consciousness, initial encounter (principal); W19.XXXA Unspecified fall, initial encounter; Y93.9 Activity, unspecified; Y92.9 Unspecified place or not applicable
CPT/HCPCS: 96361; 93005 ×2; 85025; 80048; 36415; 83735; 85610; 80076; 84484; 83880; 70450; 71045; 96374; 99285; J1953; J7030; J7040

== ENCOUNTER 2020-08-12 08:47 | Emergency (ER) | payer OTHER ==
[2020-08-12 09:22] LABS: Protime INR 0.91
--- NOTE | 2020-08-12 09:29 | RAD REPORT ---
EXAM DESCRIPTION: CT - CTHCSPWOC - 08/12/2020 9:04 am CLINICAL HISTORY: fall, altered mental status, head, neck, chest and abdomen pain COMPARISON: Soft Tissue Neck W/Contr dated 02/17/2017Soft Tissue Neck W/Contr dated 02/17/2017; Head B rain Wo Cont dated 12/17/2019 TECHNIQUE: Axial 5 mm thick images of the head were obtained. Axial 2 mm thick images of the cervic al spine were obtained with sagittal and coronal reconstruction images generated and reviewed. All CT scans are performed using dose optimization technique as appropriate and may include automated exposure control or mA/KV adjustment according to patient size. FINDINGS: No intracranial hemorrhage, mass, edema or acute intracranial finding. No suspicion for ac [place] infarction. No cortical edema or sulcal effacement. Patient has moderate severity atrophy and chr onic ischemic change. Left subfrontal encephalomalacia matches the most recent comparison. Chronic le ft mastoid opacification is present. There is chronic left frontal opacification. No globe or orbit a bnormality seen. Cervical bodies are normal in height. There is approximately 3 mm retrolisthesis C3 on C4. The C3-4 d isc space is fully effaced and there is bridging ossification across the disc space. Large anterior s purs are present at this level as well. There is moderate disc space narrowing at C4-5 and C5-6. More pronounced disc space narrowing is present at C6-7. An 8 millimeter air-filled cystic cavity is pres ent in the anterior midline C6 body. No fracture or acute bony abnormality. Significant bilateral bon y foraminal stenosis present at C3-4. Central canal is 10 mm. Significant bilateral foraminal stenosi s at C4-5 with central spinal stenosis of 8- 9 mm. Spinal stenosis to 7 mm noted at C5-6 with mild ri ght-side and moderately severe left-sided bony foraminal stenosis from uncovertebral joint hypertroph y. Endplate spurring at C6-7 causes spinal stenosis to 8-9 mm with moderately severe bilateral forami nal stenosis from uncovertebral joint hypertrophy. Central canal detail is inherently limited. No paraspinal mass or hematoma. IMPRESSION: No hemorrhage, edema or acute intracranial finding. Atrophy, chronic ischemic change and subfrontal encephalomalacia match November 2019 imaging. No fracture or acute cervical spine finding. Patient has advanced degenerative change with multilevel central spinal stenosis and multilevel foraminal stenosis.
--- NOTE | 2020-08-12 09:30 | RAD REPORT ---
EXAM DESCRIPTION: RAD - Chest Single View - 08/12/2020 9:22 am CLINICAL HISTORY: fever;Fever COMPARISON: November 2019 TECHNIQUE: AP portable chest image was obtained 08/12/2020 9:22 am . FINDINGS: Technical artifact is seen in the central portion of the image. Patient has fibrotic lung pattern that matches comparison. No pulmonary contusion or acute lung paren chymal process. Heart and vasculature are normal. No measurable pleural effusion and no pneumothorax. No acute bony abnormality seen. No acute aortic findings suspected. IMPRESSION: No acute cardiopulmonary process. Chronic interstitial findings match comparison.
[2020-08-12 09:31] LABS: Absolute Lymphocytes (CBC) 1.1 K/uL (0.7-4.9); Basophils % 0.6 % (0-1.3); Hematocrit 42.4 % (39.6-49.0); Lymphocytes % 17.5 % (15.3-44.8); MPV 7.7 fL (7.6-11.3); RBC Red Blood Cell Count 4.26 M/uL (4.33-5.43)
[2020-08-12 09:37] LABS: ALT/SGPT 97 U/L (12-78); AST/SGOT 127 U/L (15-37); Albumin 3.8 g/dL (3.4-5.0); Alkaline Phosphatase 100 U/L (45-117); Amylase 44 U/L (25-115); BUN Blood Urea Nitrogen 6 mg/dL (7-18); Bicarbonate 23 mmol/L (21-32); Bilirubin Direct 0.3 mg/dL (0-0.2); Bilirubin Total 0.7 mg/dL (0.2-1.0); CKMB Creatine Kinase MB < 1.0 ng/mL (0.3-3.6); Creatine Phosphokinase 91 U/L (39-308); Glucose Level 133 mg/dL (74-106); Lipase 137 U/L (73-393); Potassium 3.5 mmol/L (3.5-5.1); Protein, Total 8.7 g/dL (6.4-8.2); Sodium Level 140 mmol/L (136-145); Troponin (Emerg Dept Use Only) < 0.02 ng/mL (0.0-0.045)
[2020-08-12] MEDS ORDERED: LORazepam 2 MG/ML VIAL ONE (09:53)
[2020-08-12] MEDS ORDERED: levETIRAcetam 1,000 MG in NA CHLORIDE 0.9% 100 ML IV ONE (10:00)
--- NOTE | 2020-08-12 12:12 | EDPHYS ---
Physician Documentation [facility] Name: Timothy Bal Age: 75 yrs Sex: Male : 1945 Arrival Date: 08/12/2020 Time: 08:53 Bed 5 Private MD: ED Physician Jorje Gould HPI: 08/12 16:19 This 75 yrs old Male presents to ER via EMS with complaints of Fall Injury, tw4 Altered Mental Status. 16:19 The patient presents after having a single isolated seizure. Character of seizure(s): tw4 Motor activity: generalized. Seizure onset: just prior to arrival. Context: the seizure(s) was witnessed, by EMS personnel, by family. Seizure Hx: the patient has no previous seizure history. Associated injury: The patient did not suffer any apparent associated injury. The patient has not experienced similar symptoms in the past. Historical: - Allergies: 08:54 No Known Allergies; sv - Immunization history: Last tetanus immunization: unknown. - Social history:: Smoking status: unknown. ROS: 16:19 Constitutional: Negative for fever, chills, and weight loss, Eyes: Negative for injury, tw4 pain, redness, and discharge, Cardiovascular: Negative for chest pain, palpitations, and edema, Respiratory: Negative for shortness of breath, cough, wheezing, and pleuritic chest pain, Abdomen/GI: Negative for abdominal pain, nausea, vomiting, diarrhea, and constipation, Back: Negative for injury and pain, MS/Extremity: Negative for injury and deformity, Skin: Negative for injury, rash, and discoloration. Exam: 16:16 Head/Face: Normocephalic, atraumatic. Eyes: Pupils equal round and reactive to light, tw4 extra-ocular motions intact. Lids and lashes normal. Conjunctiva and sclera are non-icteric and not injected. Cornea within normal limits. Periorbital areas with no swelling, redness, or edema. ENT: Nares patent. No nasal discharge, no septal abnormalities noted. Tympanic membranes are normal and external auditory canals are clear. Oropharynx with no redness, swelling, or masses, exudates, or evidence of obstruction, uvula midline. Mucous membranes moist. Chest/axilla: Normal chest wall appearance and motion. Nontender with no deformity. No lesions are appreciated. 16:16 Cardiovascular: Rate: tachycardic, actual rate is 106 bpm. Vital Signs: 08:55 BP 153 / 89; Pulse 118; Resp 18 S; Temp 97.5(O); Pulse Ox 94% on R/A; iw 09:42 BP 154 / 91; Pulse 117; Resp 18 S; Pulse Ox 96% on R/A; iw [place] Coma Score: 08:55 Eye Response: spontaneous(4). Verbal Response: confused(4). Motor Response: obeys sv commands(6). Total: 14. 16:16 Eye Response: spontaneous(4). Verbal Response: confused(4). Motor Response: obeys tw4 commands(6). Total: 14. Trauma Score (Adult): 08:55 Eye Response: spontaneous(1); Verbal Response: confused(1); Motor Response: obeys iw commands(2); Systolic BP: > 89 mm Hg(4); Respiratory Rate: 10 to 29 per min(4); [place] Score: 14; Trauma Score: 12 MDM: 08:53 Patient medically screened. tw4 16:23 Differential diagnosis: cerebral vascular accident, cardiac arrhythmia, seizure, TIA. tw4 Data reviewed: vital signs, nurses notes. Data reviewed: EMS record, lab test result(s), cardiac enzymes, CBC, hepatic panel, EKG, radiologic studies, CT scan, plain films. Data interpreted: Pulse oximetry: Interpretation: normal. Counseling: I had a detailed discussion with the patient and/or guardian regarding: the historical points, exam findings, and any diagnostic results supporting the discharge/admit diagnosis, lab results, radiology results. Medical screen evaluation completed. EMTALA emergency medical condition absent. Special discussion: Based on the patient's history, exam and DX evaluation, there is no indication for emergent intervention or inpatient TX. It is understood by the patient/guardian that if the SXs persist or worsen they need to return immediately for re-evaluation. I discussed with the patient/guardian in detail that at this point there is no indication for admission to the hospital. It is understood, however, that if the symptoms persist or worsen the patient needs to return immediately for re-evaluation. 08/12 08:55 Order name: Amylase, Serum tw4 08/12 08:55 Order name: Basic Metabolic Panel tw4 08/12 08:55 Order name: Blood Culture Adult (2) tw4 02/15 08:55 Order name: CBC with Diff 08/12 08:55 Order name: Ckmb 08/12 08:55 Order name: CPK; Complete Time: 09:44 08/12 09:45 Interpretation: Within normal limits: CPK 91. 08/12 08:55 Order name: LFT's; Complete Time: 09:44 08/12 09:44 Interpretation: Normal except: A/G 0.8; GLOB 4.9; TP 8.7; BILID 0.3; ALT 97; AST 127. 08/12 08:55 Order name: Lipase; Complete Time: 09:44 08/12 09:45 Interpretation: Within normal limits: LIP 137. 08/12 08:55 Order name: Procalcitonin 08/12 08:55 Order name: Protime (+inr); Complete Time: 09:44 08/12 09:45 Interpretation: Within normal limits: PT 10.5. 08/12 08:55 Order name: Ptt, Activated; Complete Time: 09:44 08/12 09:45 Interpretation: Within normal limits: PTT 30.1. 08/12 08:55 Order name: Troponin (emerg Dept Use Only); Complete Time: 09:44 08/12 09:45 Interpretation: Within normal limits: TROPED < 0.02. 08/12 08:55 Order name: Chest Single View XRAY; Complete Time: 09:44 08/12 08:55 Order name: Cardiac monitoring; Complete Time: 08:59 08/12 08:55 Order name: EKG - Nurse/Tech; Complete Time: 09:31 08/12 08:55 Order name: IV Saline Lock - Large Bore; Complete Time: 08:59 08/12 08:55 Order name: Labs collected and sent; Complete Time: 08:59 08/12 08:55 Order name: O2 Per Protocol; Complete Time: 08:59 08/12 08:55 Order name: O2 Sat Monitoring; Complete Time: 08:59 08/12 08:55 Order name: CT Head C Spine; Complete Time: 09:44 08/12 08:55 Order name: Amylase; Complete Time: 09:44 EDMS 08/12 09:45 Interpretation: Within normal limits: MAURILIO 44. tw4 08/12 08:56 Order name: Basic Metabolic Panel; Complete Time: 09:44 EDMS 08/12 09:44 Interpretation: Normal except: BUN 6; GLUC 133. tw4 08/12 08:56 Order name: CBC with Automated Diff; Complete Time: 09:44 EDMS 08/12 09:44 Interpretation: Normal except: RBC 4.26; MCV 99.4; ALEX% 77.2; RDW 16.3. tw4 08/12 08:56 Order name: CKMB Creatine Kinase MB; Complete Time: 09:44 EDMS EC:16 Rate is 106 beats/min. Rhythm is regular. QRS [place] is Normal. [place] interval is normal. tw4 QRS interval is normal. QT interval is normal. No Q waves. T waves are Normal. No ST changes noted. Clinical impression: Sinus tachycardia. Interpreted by me. Reviewed by me. Administered Medications: 09:40 Drug: Ativan 1 mg Route: IVP; Site: left antecubital; sv 10:08 Follow up: Response: No adverse reaction sv 10:20 Drug: Keppra 1000 mg Route: IV; Rate: calculated rate; Site: left antecubital; iw Disposition: 08/12/20 12:11 Discharged to Home. Impression: Epileptic seizures related to external causes, not intractable. - Condition is Stable. - Discharge Instructions: Seizure, Adult. - Prescriptions for Keppra 500 mg Oral Tablet - take 1 tablet by ORAL route every 12 hours; 20 tablet. - Medication Reconciliation Form, Thank You Letter, Antibiotic Education, Prescription Opioid Use form. - Follow up: Private Physician; When: Upon discharge from the Emergency Department; Reason: Recheck today's complaints, Continuance of care, Re-evaluation by your physician. - Problem is new. - Symptoms have improved. Signatures: Dispatcher [employer] [facility] Sanaz Patricio, SANTOS RN Marcelle Peña RN RN Jorje Gould MD MD tw4 Corrections: (The following items were deleted from the chart) 11:09 08:56 Blood Culture ordered. EDCA EDMS 11:09 08:56 LACTATE+C.LAB.BRZ ordered. EDCA EDMS 12:30 12:11 08/12/2020 12:11 Discharged to Home. Impression: Epileptic seizures related to iw external causes, not intractable. Condition is Stable. Forms are Medication Reconciliation Form, Thank You Letter, Antibiotic Education, Prescription Opioid Use. Follow up: Private Physician; When: Upon discharge from the Emergency Department; Reason: Recheck today's complaints, Continuance of care, Re-evaluation by your physician. Problem is new. Symptoms have improved. tw4
--- NOTE | 2020-08-12 12:12 | ER ---
Nurse's Notes [facility] Name: Timothy Bal Age: 75 yrs Sex: Male : 1945 Arrival Date: 08/12/2020 Time: 08:53 Bed 5 Private MD: Diagnosis: Epileptic seizures related to external causes, not intractable Presentation: 08/12 08:55 Chief complaint: EMS states: witnessed fall by his son, helped him off of the ground sv and then noticed that he was altered. Pt is normally A\T\O x3 and is A\T\O x1. Temp-101.5 (not done orally), and tachycardic. Care prior to arrival: IV initiated. 20 GA, in the left antecubital area, Attempted to place a C-collar but pt kept removing it. Mechanism of Injury: Fall from standing position. Trauma event details: [facility], Injury occurred: at home. Injury occurred: August 12, 2020 Injury occurred at: 07:00. 08:55 Acuity: CECIL 2 sv 08:55 Method Of Arrival: EMS: [facility] sv 09:05 Coronavirus screen: fever. Ebola Screen: Patient negative for fever greater than or iw equal to 101.5 degrees Fahrenheit, and additional compatible Ebola Virus Disease symptoms Patient denies exposure to infectious person. Patient denies travel to an Ebola-affected area in the 21 days before illness onset. No symptoms or risks identified at this time. Initial Sepsis Screen: Does the patient meet any 2 criteria? Altered Mental Status. HR > 90 bpm. Yes Does the patient have a suspected source of infection? No. Patient's initial sepsis screen is negative. Risk Assessment: Do you want to hurt yourself or someone else? Patient reports no desire to harm self or others. Onset of symptoms was August 12, 2020. Trauma Activation: Alert Physician: ED Physician; Name: Dr Gould; Notified At: 08:58; Arrived At: 08:58 Physician: General Surgeon; Name: ; Notified At: 08:58; Arrived At: Physician: Radiology; Name: ; Notified At: 08:58; Arrived At: Physician: Respiratory; Name: ; Notified At: 08:58; Arrived At: Physician: Lab; Name: ; Notified At: 08:58; Arrived At: Historical: - Allergies: 08:54 No Known Allergies; sv - Immunization history: Last tetanus immunization: unknown. - Social history:: Smoking status: unknown. Screenin:09 Abuse screen: unable to complete. Nutritional screening: unable to complete. sv Tuberculosis screening: unable to complete. Fall Risk No fall in past 12 months (0 pts). No secondary diagnosis (0 pts). IV access (20 points). Ambulatory Aid- None/Bed Rest/Nurse Assist (0 pts). Gait- Normal/Bed Rest/Wheelchair (0 pts) Mental Status- Overestimates/Forgets Limitations (15 pts.). Total Mcfadden Fall Scale indicates High Risk Score (45 or more points). Fall prevention measures have been instituted. Side Rails Up X 2 Placed Close to Nursing Station Frequent Obs/Assessments Occuring As available patient and family educated on Fall Prevention Program and Strategies. Primary Survey: 09:00 NO uncontrolled hemorrhage observed. A: The patient is alert. Airway: patent. iw Breathing/Chest: Respiratory pattern: regular, Respiratory effort: spontaneous, unlabored. Circulation: Skin color: pink. Disability Alert. Exposure/Environment: All clothing and personal items were removed. Forensic evidence collection is not deemed to be indicated at this time. Items placed in patient belonging bag. 09:30 Reassessment Breathing/Chest Respiratory pattern. iw Assessment: 08:55 General: Appears in no apparent distress. Behavior is calm, cooperative. Pain: Denies iw pain. Neuro: Level of Consciousness is awake, alert, obeys commands, Oriented to person, [place] are equal bilaterally Moves all extremities. Cardiovascular: Patient's skin is warm and dry. Respiratory: Respiratory effort is even, unlabored, Respiratory pattern is regular. GI: Abdomen is flat, non-distended. Derm: Skin has lesions on face Skin is normal. Musculoskeletal: Range of motion: intact in all extremities. 09:38 Reassessment: pt noted to have seizure activity, tonic clonic, lasting approx 1 minute, iw Dr. Gould notified, order for Ativan 1 mg IVP to be given now. 09:42 Reassessment: pt able to follow commands but is not verbal at this time. iw 10:01 Reassessment: Patient appears in no apparent distress at this time. pt appears more iw alert, following commands, now oriented X 3. 11:16 Reassessment: Patient appears in no apparent distress at this time. Patient and/or iw family updated on plan of care and expected duration. Pain level reassessed. Vital Signs: 08:55 BP 153 / 89; Pulse 118; Resp 18 S; Temp 97.5(O); Pulse Ox 94% on R/A; iw 09:42 BP 154 / 91; Pulse 117; Resp 18 S; Pulse Ox 96% on R/A; iw [place] Coma Score: 08:55 Eye Response: spontaneous(4). Verbal Response: confused(4). Motor Response: obeys sv commands(6). Total: 14. 16:16 Eye Response: spontaneous(4). Verbal Response: confused(4). Motor Response: obeys tw4 commands(6). Total: 14. Trauma Score (Adult): 08:55 Eye Response: spontaneous(1); Verbal Response: confused(1); Motor Response: obeys iw commands(2); Systolic BP: > 89 mm Hg(4); Respiratory Rate: 10 to 29 per min(4); Rakesh Score: 14; Trauma Score: 12 ED Course: 08:53 Patient arrived in ED. sv 08:53 Jorje Gould MD is Attending Physician. tw4 08:55 Patient maintains SpO2 saturation greater than 95% on room air. sv 08:55 Thermoregulation: warm blanket given to patient. sv 08:55 Patient has correct armband on for positive identification. Placed in gown. Bed in low sv position. Call light in reach. Side rails up X2. monitoring manager on. Pulse ox on. NIBP on. Warm blanket given. Head of bed elevated. 08:56 Maintain EMS IV. Dressing intact. Good blood return noted. Site clean \T\ dry. Gauge \T\ iw site: 20 LAC. 08:58 Triage completed. sv 08:[address] via stretcher. sv 09:04 CT Head C Spine In Process Unspecified. EDMS 09:04 Marcelle Allen, RN is Primary Nurse. iw 09:06 Arm band placed on. iw 09:09 Chest Single View XRAY In Process Unspecified. EDMS 09:26 EKG done, by ED staff, reviewed by Jorje Gould MD. sv 09:31 Ckmb Sent. sv 09:31 CBC with Diff Sent. sv 09:31 Basic Metabolic Panel Sent. sv 09:31 Amylase, Serum Sent. sv 12:29 No provider procedures requiring assistance completed. IV discontinued, intact, iw bleeding controlled, No redness/swelling at site. Pressure dressing applied. Administered Medications: 09:40 Drug: Ativan 1 mg Route: IVP; Site: left antecubital; sv 10:08 Follow up: Response: No adverse reaction sv 10:20 Drug: Keppra 1000 mg Route: IV; Rate: calculated rate; Site: left antecubital; iw Intake: 08:55 PO: 0ml; Total: 0ml. sv Output: 08:55 Urine: 0ml; Total: 0ml. sv Outcome: 12:11 Discharge ordered by . tw4 12:29 Discharged to home via wheelchair, with family. iw 12:29 Condition: good 12:29 Discharge instructions given to family, Instructed on discharge instructions, follow up and referral plans. medication usage, Demonstrated understanding of instructions, follow-up care, medications, Prescriptions given X 1. 12:29 Patient's length of stay in the Emergency Department was greater than 2 hours. iw 12:30 Patient left the ED. iw Signatures: Dispatcher [employer] Sanaz Vega, Marcelle Barbosa RN, RN RN Jorje Palmer MD MD tw4
[2020-08-12 12:35] VITALS: TEMP 97.5
[2020-08-12 12:37] VITALS: BP 154/91; O2SAT 96
== END 2020-08-12 12:30 | disposition home or self-care (01) ==
LOC: ER 08:47
DX: G40.509 Epileptic seizures related to external causes, not intractable, without status epilepticus (principal)
CPT/HCPCS: 93005; 85025; 80048; 36415; 82150; 82550; 85610; 80076; 85730; 84484; 82553; 83690; 84145; 70450; 72125; 71045; 96375; 96374; 99285; J1953; G0390

== ENCOUNTER 2021-01-28 09:02 | Emergency (ER) | payer OTHER ==
--- OUTSIDE RECORDS SUMMARY | 2021-01-28 09:05 | XMS REPORT | Continuity of Care Document ---
:1945 Author Organization [facility] t Address [address] [place] [address] Care Team Providers Name Role Phone Ezequiel Lei Attending Clinician Unavailable Singer MADRID Attending Clinician Noa Admitting Clinician Unavailable Payers Payer Name Policy Type Policy Number Effective Date Expiration Date S ource Problems This patient has no known problems. Allergies, Adverse Reactions, Alerts Allergy Allergy Status Severity Reaction(s) Onset Inactive Treating Comm ents Source Name Type Date Date Clinician No Known DA Active U [facility] Allergie 12-25 [facility] 00:00: d [address] [place] [address] Medications This patient has no known medications. Procedures This patient has no known procedures. Encounters Start End Encounter Admission Attending Care Care Encounter Source Date/Time Date/Time Type Type Clinicians Facility Department ID 2020-12-25 2020-12-25 Emergency EM Mitul SALEH [id number] [facility] 14:06:00 19:05:00 Ezequiel jj [id number] [facility] 2020-05-09 2020-05-09 Emergency RINA Jade [id number] 09:48:00 15:52:00 Kelby Franco [id number] [place] [id number] [place] [address] [id number] [id number] Results Test Description Test Time Test Comments Results Result Comments Source UA RFLX MICR CULT IF INDICATED 2020-12-25 18:21:00 Test Item Value Reference Range Interpretation Comme nts UA COLOR (test code = COLU) YELLOW discript YEL/STRAW UA APPEARANCE (test code = APPU) CLEAR discript CLEAR UA GLUCOSE DIPSTICK (test code = DGLUU) NEGATIVE mg/dL NEG UA BILIRUBIN DIPSTICK (test code = BILU) NEGATIVE mg/dL NEG UA KETONE DIPSTICK (test code = KETU) 1+ mg/dL NEG UA SPECIFIC GRAVITY (test code = SGU) 1.010 SG 1.005-1.030 UA BLOOD DIPSTICK (test code = SAV) NEGATIVE mg/DL NEG UA PH DIPSTICK (test code = TERRI) 6.0 pH UNITS 5.0-7.0 UA PROTEIN DIPSTICK (test code = PROU) TRACE mg/dL NEG A UA UROBILINIOGEN DIPSTICK (test code = URO) 0.2 mg/dL <2.0 UA NITRITE DIPSTICK (test code = JONY) NEGATIVE SCREEN NEG UA LEUKOCYTE ESTERASE DIPSTICK (test code = LEUU) NEGATIVE Leuk/mcL NEGATIVE Indication for culture: Suprapubic PainDRUGS OF ABUSE SCREEN [id number] 18:21:00 Test Item Value Reference Range Interpretation Comments URN COCAINE (test NEGATIVE See_Comment [Automate d code = COCAURN) SCcutoff message] The system which generated this result transmit estephania reference range : <300 NG/ML. The reference range was not used to interpret this result as normal/abnormal . URN CANNABINOIDS NEGATIVE See_Comment [Automated (test code = SCcutoff message] The CANNABURN) system which generated this result transmit estephania reference range : <50 NG/ML. The reference range was not used to interpret this result as normal/abnormal . URN AMPHETAMINE (test NEGATIVE See_Comment [Auto mated code = AMPHETURN) SCcutoff message] T system which generated this result transmit estephania reference range : <1000 NG/ML. Th e reference range was not used to interpret this result as normal/abnormal . URN BARBITURATE (test NEGATIVE See_Comment [Auto mated code = BARBITURN) SCcutoff message] T he system which generated this result transmit estephania reference range : <200 NG/ML. The reference range was not used to interpret this result as normal/abnormal . URN BENZODIAZEPINE NEGATIVE See_Comment [Automat ed (test code = SCcutoff message] The BENZOURN) system which generated this result transmit estephania reference range : <200 NG/ML. The reference range was not used to interpret this result as normal/abnormal . URN OPIATES (test NEGATIVE See_Comment [Automate d code = OPIATURN) SCcutoff message] e system which generated this result transmit estephania reference range : <2000 NG/ML. e reference range was not used to interpret this result as normal/abnormal . URN PHENCYCLIDINE NEGATIVE See_Comment [Automate d (PCP) (test code = SCcutoff message] The PHENCURN) system which generated this result transmit estephania reference range : <25 NG/ML. The reference range was not used to interpret this result as normal/abnormal . URN METHADONE (test NEGATIVE See_Comment [Automa estephania code = METHAURN) SCcutoff message] e system which generated this result transmit estephania reference range : <300 NG/ML. The reference range was not used to interpret this result as normal/abnormal . Indication for culture: Suprapubic PainUA RFLX MICR CULT IF INDICATED 2020-12-25 18:06:00 Test Item Value Reference Range Interpretation Comments UA COLOR (test code = COLU) YELLOW discript YEL/STRAW UA APPEARANCE (test code = CLEAR discript CLEAR APPU) UA GLUCOSE DIPSTICK (test NEGATIVE mg/dL NEG code = DGLUU) UA BILIRUBIN DIPSTICK (test NEGATIVE mg/dL NEG code = BILU) UA KETONE DIPSTICK (test 1+ mg/dL NEG code = KETU) UA SPECIFIC GRAVITY (test 1.010 SG 1.005-1.030 code = SGU) UA BLOOD DIPSTICK (test NEGATIVE mg/DL NEG code = SAV) UA PH DIPSTICK (test code = 6.0 pH UNITS 5.0-7.0 TERRI) UA PROTEIN DIPSTICK (test TRACE mg/dL NEG A code = PROU) UA UROBILINIOGEN DIPSTICK 0.2 mg/dL <2.0 (test code = URO) UA NITRITE DIPSTICK (test NEGATIVE SCREEN NEG code = JONY) UA LEUKOCYTE ESTERASE NEGATIVE Leuk/mcL NEGATIVE DIPSTICK (test code = LEUU) UA CULTURE NEEDED? (test Criteria Culture CHK code = UACULT) Indication for culture: Suprapubic PainDRUGS OF ABUSE SCREEN [id number] 18:06:00 Test Item Value Reference Range Interpretation Comments URN COCAINE (test code = SCcutoff See_Comment [A utomated message] COCAURN) The system Vhoto generated this result transmit estephania reference range : <300 NG/ML. The reference range was not used to interpret this result as normal/abnormal . URN CANNABINOIDS (test SCcutoff See_Comment [Aut omated message] code = CANNABURN) The system which generated this result transmit estephania reference range : <50 NG/ML. The refe rence range was not u sed to interpret th is result as normal/abnormal . URN AMPHETAMINE (test SCcutoff See_Comment [Auto mated message] code = AMPHETURN) The system which generated this result transmit estephania reference range : <1000 NG/ML. Th e reference range was not used to interpret this result as normal/abnormal . URN BARBITURATE (test SCcutoff See_Comment [Auto mated message] code = BARBITURN) The system which generated this result transmit estephania reference range : <200 NG/ML. The reference range was not used to interpret this result as normal/abnormal . URN BENZODIAZEPINE (test SCcutoff See_Comment [A utomated message] code = BENZOURN) The system which generated this result transmit estephania reference range : <200 NG/ML. The reference range was not used to interpret this result as normal/abnormal . URN OPIATES (test code = SCcutoff See_Comment [A utomated message] OPIATURN) The system Vhoto generated this result transmit estephania reference range : <2000 NG/ML. Th e reference range was not used to interpret this result as normal/abnormal . URN PHENCYCLIDINE (PCP) SCcutoff See_Comment [Au tomated message] (test code = PHENCURN) The s ystem which generated this result transmit estephania reference range : <25 NG/ML. The refe rence range was not u sed to interpret th is result as normal/abnormal . URN METHADONE (test code SCcutoff See_Comment [A utomated message] = METHAURN) The system Vhoto generated this result transmit estephania reference range : <300 NG/ML. The reference range was not used to interpret this result as normal/abnormal . Indication for culture: Suprapubic PainUA RFLX MICR CULT IF INDICATED 2020-12-25 18:06:00 Test Item Value Reference Range Interpretation Comments UA COLOR (test code = COLU) YELLOW discript YEL/STRAW UA APPEARANCE (test code = CLEAR discript CLEAR APPU) UA GLUCOSE DIPSTICK (test NEGATIVE mg/dL NEG code = DGLUU) UA BILIRUBIN DIPSTICK (test NEGATIVE mg/dL NEG code = BILU) UA KETONE DIPSTICK (test 1+ mg/dL NEG code = KETU) UA SPECIFIC GRAVITY (test 1.010 SG 1.005-1.030 code = SGU) UA BLOOD DIPSTICK (test NEGATIVE mg/DL NEG code = SAV) UA PH DIPSTICK (test code = 6.0 pH UNITS 5.0-7.0 TERRI) UA PROTEIN DIPSTICK (test TRACE mg/dL NEG A code = PROU) UA UROBILINIOGEN DIPSTICK 0.2 mg/dL <2.0 (test code = URO) UA NITRITE DIPSTICK (test NEGATIVE SCREEN NEG code = JONY) UA LEUKOCYTE ESTERASE NEGATIVE Leuk/mcL NEGATIVE DIPSTICK (test code = LEUU) Indication for culture: Suprapubic PainDRUGS OF ABUSE SCREEN [id number] 18:06:00 Test Item Value Reference Range Interpretation Comments URN COCAINE (test code = SCcutoff See_Comment [A utomated message] COCAURN) The system Vhoto generated this result transmit estephania reference range : <300 NG/ML. The reference range was not used to interpret this result as normal/abnormal . URN CANNABINOIDS (test SCcutoff See_Comment [Aut omated message] code = CANNABURN) The system which generated this result transmit estephania reference range : <50 NG/ML. The refe rence range was not u sed to interpret th is result as normal/abnormal . URN AMPHETAMINE (test SCcutoff See_Comment [Auto mated message] code = AMPHETURN) The system which generated this result transmit estephania reference range : <1000 NG/ML. Th e reference range was not used to interpret this result as normal/abnormal . URN BARBITURATE (test SCcutoff See_Comment [Auto mated message] code = BARBITURN) The system which generated this result transmit estephania reference range : <200 NG/ML. The reference range was not used to interpret this result as normal/abnormal . URN BENZODIAZEPINE (test SCcutoff See_Comment [A utomated message] code = BENZOURN) The system which generated this result transmit estephania reference range : <200 NG/ML. The reference range was not used to interpret this result as normal/abnormal . URN OPIATES (test code = SCcutoff See_Comment [A utomated message] OPIATURN) The system Vhoto generated this result transmit estephania reference range : <2000 NG/ML. Th e reference range was not used to interpret this result as normal/abnormal . URN PHENCYCLIDINE (PCP) SCcutoff See_Comment [Au tomated message] (test code = PHENCURN) The s ystem which generated this result transmit estephania reference range : <25 NG/ML. The refe rence range was not u sed to interpret th is result as normal/abnormal . URN METHADONE (test code SCcutoff See_Comment [A utomated message] = METHAURN) The system Vhoto generated this result transmit estephania reference range : <300 NG/ML. The reference range was not used to interpret this result as normal/abnormal . Indication for culture: Suprapubic PainPROTHROMBIN [id number] 17:18:00 Test Item Value Reference Range Interpretation Comments PT PATIENT (test code = PTP) 10.7 SECONDS 9.3-12.9 N INTERNATIONAL NORMAL RATIO 0.96 INR Unit 0.8-1.2 N (test code = INR) THROMBOPLASTIN TIME [id number] 17:18:00 Test Item Value Reference Range Interpretation Comments THROMBOPLASTIN TIME PARTIAL 32.4 SECONDS 26-35 N (test code = PTT) [id number] 16:07:00 Test Item Value Reference Range Interpretation Comments AMMONIA (test code = AMM) 21 mcMOL/L 11-32 N BASIC METABOLIC [id number] 15:22:00 Test Item Value Reference Range Interpretation Comments SODIUM (test code = NA) 139 mmol/L 134-147 N POTASSIUM (test code = 3.6 mmol/L 3.4-5.0 N K) CHLORIDE (test code = 100 mmol/L 100-108 N CL) CARBON DIOXIDE (test 26 mmol/L 21-32 N code = CO2) ANION GAP (test code = 13.0 GAP calc 4.0-15.0 N GAP) GLUCOSE (test code = 111 MG/DL 70-110 H GLU) BLOOD UREA NITROGEN 11 MG/DL 7-18 N (test code = BUN) GLOMERULAR FILTRATION >=60 max estimate >60 RATE (test code = GFR) estGFR CREATININE (test code = 0.6 MG/DL 0.8-1.3 L CREAT) CALCIUM (test code = CA) 8.5 MG/DL 8.5-10.1 N Completed by Nursing: [id number] 15:22:00 Test Item Value Reference Range Interpretation Comments LIPASE (test code = LIP) 69 Unit/L 114-286 L Completed by Nursing: [id number] 15:22:00 Test Item Value Reference Range Interpretation Comments TROPONIN-I (test < 0.015 NG/ML 0.000-0.045 N Negative: </= 0.045 code = TROPI) Positive: >/= 0.046 Correlation wit h serial results, other cardiac markers, and cl inical findings is nec essary to determine the c linical significance of this result. Quantit ative results using d ifferent methodologies s hould not be compared to one another as nume rical results may jean paul yby method. Completed by Nursing: [id number] 15:22:00 Test Item Value Reference Range Interpretation Comments ALCOHOL (test code = ALC) 296 MG/DL 0-10 HH Completed by Nursing: NOCBC W/AUTO [id number] 15:04:00 Test Item Value Reference Range Interpretation Comments WHITE BLOOD CELL (test code = 6.9 K/mm3 3.5-11.0 N WBC) RED BLOOD CELL (test code = 4.56 M/mm3 4.70-6.10 L RBC) HEMOGLOBIN (test code = HGB) 14.3 G/DL 12.3-15.9 N HEMATOCRIT (test code = HCT) 41.2 % 35.8-46.7 N MEAN CELL VOLUME (test code = 90.4 Fl 86.3-98.9 N MCV) MEAN CELL HGB (test code = MCH) 31.4 pg 28.9-34.4 N MEAN CELL HGB CONCETRATION 34.7 G/DL 32.1-34.5 H (test code = MCHC) RED CELL DISTRIBUTION WIDTH 13.3 SD 11.5-14.5 N (test code = RDW) PLATELET COUNT (test code = 212 K/mm3 150-450 N PLT) MEAN PLATELET VOLUME (test code 9.10 fL 7.0-9.6 N = MPV) NEUTROPHIL % (test code = NT%) 67.0 % 40-76 N IMMATURE GRANULOCYTE % (test 0.1 % 0.0-5.0 N code = IG%) LYMPHOCYTE % (test code = LY%) 25.7 % 20.5-51.1 N MONOCYTE % (test code = MO%) 6.7 % 1.7-9.3 N EOSINOPHIL % (test code = EO%) 0.1 % 0.0-6.0 N BASOPHIL % (test code = BA%) 0.4 % 0.0-2.0 N NUCLEATED RBC % (test code = 0.0 /100WBC% 0.0-1.0 N NRBC%) NEUTROPHIL # (test code = NT#) 4.6 K/mm3 1.8-7.6 N IMMATURE GRANULOCYTE # (test 0.01 x10 3/uL 0.00-0.03 N code = IG#) LYMPHOCYTE # (test code = LY#) 1.8 K/mm3 0.6-3.0 N MONOCYTE # (test code = MO#) 0.5 K/mm3 0.2-1.5 N EOSINOPHIL # (test code = EO#) 0.0 K/mm3 0.0-0.4 N BASOPHIL # (test code = BA#) 0.0 K/mm3 0.0-0.2 N NUCLEATED RBC # (test code = 0.0 K/mm3 0.00-0.01 N NRBC#) MANUAL DIFF REQUIRED (test code NO DIFF/SCN CRITERIA = MDIFF) - XR CHEST 1 [id number] 14:45:00 [facility] 1945 Sex: M Name: EBONY DIAZ [facility] : 1945 Age/S: 75 / M [id number] Unit #: [id number] Loc: [place] [address] Phys: Ezequiel Lei MD Acct: [id number] Dis Date: Status: PRE ER PHONE #: [phone] Exam Date: 12/25/20201426 FAX #: Reason: chest pain EXAMS: CPT: [id number] XR CHEST 1 V 21857 Fluoro Time: DAP (Gy m2): Air Kerma (mGy): - XR CHEST 1 V INDICATION:Chest pain LOCATION: T18 The lungs are clear. Heart size normal. A nodular density overlying the right upper lobe is probably the prominent anterior aspect of the second rib. Old bilateral rib fractures. IMPRESSION: No active disease. at 1445 Reported and signed by: Rolando Fitzpatrick M.D. CC: Ezequiel Lei MD PAGE 1 Signed Report Name: EBONY DIAZ [facility] : 1945 Age/S: 75 / M [id number] Unit #: [id number] Loc: [place] [address] Phys: Ezequiel Lei MD Acct: [id number] Dis Date: Status: PRE ER PHONE #: [phone] Exam Date: 12/25/2020 1420 FAX #: Reason: chest pain EXAMS: CPT: [id number] XR CHEST 1 V 73420 Fluoro Time: DAP (Gy m2): Air Kerma (mGy): <Continued> Tech nologist: Juliana Chirinos, RT(R)(CT) Trnscb Date/Time: 12/25/2020 (814)Marcell Orig Print D/T: S: 12/25/2020 (6811) PAGE 2 Signed Report- CT C- SPINE W/O [id number] 14:41:00 [facility] 1945 Sex: M Name: EBONY DIAZ [facility] : 1945 Age/S: 75 / M [id number] Unit #: [id number] Loc: [place] [address] Phys: Ezequiel Lei MD Acct: [id number] Dis Date: Status: PRE ER PHONE #: [phone] Exam Date: 12/25/2020 1421 FAX #: Reason: fall, on blood thinners EXAMS: CPT: [id number] CT C-SPINE W/O CONT 95530 EXAM: - CT C- SPINE W/O CONT INDICATION: fall, on blood thinners T18 TECHNIQUE: Axial tomograms through the cervical spine were obtained without intravenous contrast. Sagittal and coronal reformatted images are provided. This exam was performed according to our departmental dose- optimization program, which includes automated exposure control, adjustment of the mA and/or kV according to patient size and/or use of iterative reconstruction technique. FINDINGS: Alignment: There is 3 mm retrolisthesis of C3 onC4. Reversal of the upper cervical spine curvature. Vertebral bodies: The vertebral body heights appear to be maintained. No acute fracture seen. Disc spaces: Moderate to severe disc degenerative changes involving the majority of the cervical spine, most prominent at C3-C4. Posterior elements: No acute fracture, or subluxation seen. Multilevel mild facet arthropathy. Visualized soft tissues of the neck: Appear grossly unremarkable. Visualized chest: No significant abnormality appreciated. IMPRESSION: There is 3 mm retrolisthesis of C3 on C4. Reversal of the upper cervical spine curvature. No acute fracture seen. at 1441 Reported and signed by: Brent Motta M.D. PAGE 1 Signed Report (CONTINUED) Name: EBONY DIAZ [facility] : 1945 Age/S: 75 / M [address] [place] [address] Unit #: [id number] Loc: [place] [address] Phys: Ezequiel Lei MD Acct: [id number] Dis Date: Status: PRE ER PHONE #: [phone] Exam Date: 12/25/2020 1421 FAX #: Reason: fall, on blood thinners EXAMS: CPT: [id number] C-SPINE W/O CONT [id number] <Continued> CC: Ezequiel Lei MD; Magda RIVAS Technologist:Trevin Armstrong, (R)(CT) CTDI: DLP: Trnscb Date/Time: 12/25/2020 (144) [email or web address] OrigPrint D/T: S: 12/25/2020 (1444) PAGE 2 Signed Report- CT HEAD/BRAIN W/O [id number] 14:41:00 [facility] 1945 Sex: M Name: EBONY DIAZ [place] : 1945 Age/S: 75 / M [id number] Unit #: [id number] Loc: [place] [address] Phys: Ezequiel Lei MD Acct: [id number] Dis Date: Status: PRE ER PHONE #: [phone] Exam Date: 12/25/2020 1422 FAX #: Reason: fall, on blood thinners EXAMS: CPT: [id number] CT HEAD/BRAIN W/O CONT 53663 Dictation location: U19. CT HEAD WITHOUT CONTRAST. HISTORY: fall, on blood thinners COMPARISON: No comparison is available. TECHNIQUE: Axial CT images of the head were obtained with coronal and/or sagittal reformatted views. Automated exposurecontrol, iterative reconstruction technique, and/or adjustment of mA and/or kV accordingto patient's size was utilized for radiation dose reduction. IV CONTRAST: None. FINDINGS: Encephalomalacia noted along the left frontal lobe likely related to prior trauma. Mild amount of periventricular and deep white matter hypodensities are seen, these are most commonly associated with chronic, microvascular ischemic changes. Mild generalized atrophy is noted. No other intracranial abnormalities such as hemorrhage, mass, mass effect, hydrocephalus, midline shift, extra-axial fluid collection or secondarysigns of an acute infarct are noted. The calvarium and skull base are intact. The thickening and opacification seen along the left frontal sinus. Mild thickening of the ethmoid sinuses. Postoperative changes partially imaged inferior to the left maxillary sinus. Right posterior scalp contusion/hematoma. IMPRESSION: No evidence of acute intracranial abnormality. 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 Mild chronic microvascular ischemic changes and atrophy. Right posterior scalp contusion/hematoma. PAGE 1 Signed Report (CONTINUED) Name: EBONY DIAZ [place] : 1945 Age/S: 75 / M [address] Unit #: [id number] Loc: [place] [address] Phys: Ezequiel Lei MD Acct: [id number] Dis Date: Status: PRE ER PHONE #: [phone] Exam Date: 12/25/2020 1422 FAX #: Reason: fall, on blood thinnersEXAMS: CPT: [id number] CT HEAD/BRAIN W/O CONT 53344 <Continued> at 1441 Reported and signed by: Ludivina Lyn M.D. CC: Ezequiel Lei MD; Magda RIVAS Technologist:Trevin Armstrong, RT(R)(CT) CTDI: DLP: Trnscb Date/Time: 12/25/2020 (1447) [email or web address] Orig Print D/T: S: 12/25/2020 (5634) PAGE 2 Signed Report
--- NOTE | 2021-01-28 10:43 | EDPHYS ---
Physician Documentation [facility] Name: Timothy Bal Age: 75 yrs Sex: Male : 1945 Arrival Date: 01/28/2021 Time: 09: Bed 14 Private MD: Kleber Wilkinson R ED Physician Sam Tran HPI: 01/28 10:38 This 75 yrs old Male presents to ER via Wheelchair with complaints of Urinary albert Problem. 10:38 The patient presents with urinary symptoms, dribbling of urine, retention, unable to albert void. Onset: The symptoms/episode began/occurred this morning, today. Modifying factors: The symptoms are alleviated by nothing, the symptoms are aggravated by nothing. Associated signs and symptoms: The patient has no apparent associated signs or symptoms. Severity of symptoms: At their worst the symptoms were moderate, in the emergency department the symptoms have improved. The patient has not experienced similar symptoms in the past. 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 - Social history:: Smoking status: Patient reports the use of cigarette tobacco products, Patient/guardian denies using tobacco, the patient reports quitting approximately 14 years ago. ROS: 10:39 Constitutional: Negative for fever, chills, and weight loss, Eyes: Negative for injury, albert pain, redness, and discharge, ENT: Negative for injury, pain, and discharge, Neck: Negative for injury, pain, and swelling, Cardiovascular: Negative for chest pain, palpitations, and edema, Respiratory: Negative for shortness of breath, cough, wheezing, and pleuritic chest pain, Abdomen/GI: Negative for abdominal pain, nausea, vomiting, diarrhea, and constipation, Back: Negative for injury and pain, MS/Extremity: Negative for injury and deformity, Skin: Negative for injury, rash, and discoloration, Neuro: Negative for headache, weakness, numbness, tingling, and seizure, Psych: Negative for depression, anxiety, suicide ideation, homicidal ideation, and hallucinations, Allergy/Immunology: Negative for hives, rash, and allergies, Endocrine: Negative for neck swelling, polydipsia, polyuria, polyphagia, and marked weight changes, Hematologic/Lymphatic: Negative for swollen nodes, abnormal bleeding, and unusual bruising. 10:39 : Positive for urinary symptoms, urinary frequency, small amounts, difficulty urinating. Exam: 10:39 Constitutional: This is a well developed, well nourished patient who is awake, alert, albert and in no acute distress. Head/Face: Normocephalic, atraumatic. Eyes: Pupils equal round and reactive to light, extra-ocular motions intact. Lids and lashes normal. Conjunctiva and sclera are non-icteric and not injected. Cornea within normal limits. Periorbital areas with no swelling, redness, or edema. ENT: Nares patent. No nasal discharge, no septal abnormalities noted. Tympanic membranes are normal and external auditory canals are clear. Oropharynx with no redness, swelling, or masses, exudates, or evidence of obstruction, uvula midline. Mucous membranes moist. Neck: Trachea midline, no thyromegaly or masses palpated, and no cervical lymphadenopathy. Supple, full range of motion without nuchal rigidity, or vertebral point tenderness. No Meningismus. Chest/axilla: Normal chest wall appearance and motion. Nontender with no deformity. No lesions are appreciated. Cardiovascular: Regular rate and rhythm with a normal S1 and S2. No gallops, murmurs, or rubs. Normal PMI, no JVD. No pulse deficits. Respiratory: Lungs have equal breath sounds bilaterally, clear to auscultation and percussion. No rales, rhonchi or wheezes noted. No increased work of breathing, no retractions or nasal flaring. Back: No spinal tenderness. No costovertebral tenderness. Full range of motion. Skin: Warm, dry with normal turgor. Normal color with no rashes, no lesions, and no evidence of cellulitis. MS/ Extremity: Pulses equal, no cyanosis. Neurovascular intact. Full, normal range of motion. Neuro: Awake and alert, GCS 15, oriented to person, place, time, and situation. Cranial nerves II-XII grossly intact. Motor strength 5/5 in all extremities. Sensory grossly intact. Cerebellar exam normal. Normal gait. Psych: Awake, alert, with orientation to person, place and time. Behavior, mood, and affect are within normal limits. 10:39 Abdomen/GI: Inspection: distension, that is mild, Bowel sounds: active, all quadrants, Palpation: mild abdominal tenderness, in the suprapubic area, Liver: no appreciated palpable abnormalities, Hernia: not appreciated. Vital Signs: 09:39 BP 175 / 94; Pulse 100; Resp 18 S; Temp 98.0; Pulse Ox 98% on R/A; Weight 70.31 kg; iw 10:46 BP 175 / 92; Pulse 99; Resp 16; Pulse Ox 99% ; vg1 11:35 BP 172 / 88; Pulse 90; Resp 16; Pulse Ox 98% ; vg1 MDM: 10:23 Patient medically screened. [facility] 10:45 Differential diagnosis: nonspecific abdominal pain, UTI, urinary retention, Lopez albert catheter problem, prostatitis, urethritis. Data reviewed: vital signs, nurses notes, lab test result(s), urinalysis. 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 Counseling: I had a detailed discussion with the patient and/or guardian regarding: the historical points, exam findings, and any diagnostic results supporting the discharge/admit diagnosis, lab results, radiology results, the need for outpatient follow up, for definitive care, a family practitioner, a urologist. 01/28 10:25 Order name: Urine Culture [facility] 01/28 10:44 Order name: Urine Dipstick-Ancillary EDAK 01/28 10:25 Order name: Urine Dipstick-Ancillary (obtain specimen); Complete Time: 10:39 [facility] 01/28 10:25 Order name: Lopez: NOTE PVR; Complete Time: 10:39 [facility] Administered Medications: 10:53 Drug: Cipro (ciprofloxacin) 500 mg Route: PO; vg1 12:00 Follow up: Response: No adverse reaction vg1 Disposition Summary: 01/28/21 10:43 Discharge Ordered Location: Home [facility] Problem: new albert Symptoms: have improved albert Condition: Stable albert Diagnosis - Other retention of urine - PVR 1200 CC albert Followup: albert - With: Kleber Wilkinson MD - When: 2 - 3 days - Reason: Recheck today's complaints, Continuance of care, Re-evaluation by your physician Followup: albert - With: Lanre Long MD - When: 2 - 3 days - Reason: Recheck today's complaints, Re-evaluation by your physician Discharge Instructions: - Discharge Summary Sheet albert - Acute Urinary Retention, Male albert - Acute Urinary Retention, Male, [id number] [facility] Forms: - Medication Reconciliation Form albert - Thank You Letter albert - Antibiotic Education albert - Prescription Opioid Use [facility] Prescriptions: - tamsulosin 0.4 mg Oral capsule - take 1 capsule by ORAL route once daily 1/2 hour following the same meal each [facility] day; 20 capsule; Refills: 0, Product Selection Permitted - Cipro 250 mg Oral Tablet - take 1 tablet by ORAL route every 12 hours; 14 tablet; Refills: 0, Product [facility] Selection Permitted Signatures: Dispatcher [employer] Sam Solis MD MD cha Williams, Irene, RN RN Kerry Iqbal RN RN vg1
--- NOTE | 2021-01-28 10:43 | ER ---
Nurse's Notes [facility] Name: Timothy Bal Age: 75 yrs Sex: Male : 1945 Arrival Date: 01/28/2021 Time: 09:03 Bed 14 Private MD: Kleber Wilkinson R Diagnosis: Other retention of urine-PVR 1200 CC Presentation: 01/28 09:39 Chief complaint: Patient states: LLQ pain since yesterday , is also not urinating very iw much for a few days, has also been restless , no fever, denies vomiting or diarrhea. Coronavirus screen: At this time, the client does not indicate any symptoms associated with coronavirus-19. Ebola Screen: Patient negative for fever greater than or equal to 101.5 degrees Fahrenheit, and additional compatible Ebola Virus Disease symptoms Patient denies exposure to infectious person. Patient denies travel to an Ebola-affected area in the 21 days before illness onset. No symptoms or risks identified at this time. Initial Sepsis Screen: Does the patient meet any 2 criteria? No. Patient's initial sepsis screen is negative. Does the patient have a suspected source of infection? No. Patient's initial sepsis screen is negative. Risk Assessment: Do you want to hurt yourself or someone else? Patient reports no desire to harm self or others. Onset of symptoms was January 25, 2021. 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 - Social history:: Smoking status: Patient reports the use of cigarette tobacco products, Patient/guardian denies using tobacco, the patient reports quitting approximately 14 years ago. Screenin:46 Abuse screen: Denies threats or abuse. Nutritional screening: No deficits noted. vg1 Tuberculosis screening: No symptoms or risk factors identified. Fall Risk No fall in past 12 months (0 pts). No secondary diagnosis (0 pts). No IV (0 pts). Ambulatory Aid- None/Bed Rest/Nurse Assist (0 pts). Gait- Normal/Bed Rest/Wheelchair (0 pts) Mental Status- Oriented to own ability (0 pts). Total Mcfadden Fall Scale indicates No Risk (0-24 pts). Assessment: 10:45 General: Appears in no apparent distress. uncomfortable, Behavior is calm, cooperative. vg1 Pain: Complains of pain in pelvis and suprapubic area Pain currently is 6 out of 10 on a pain scale. Noted to be grimacing. Neuro: Level of Consciousness is awake, alert, obeys commands, Oriented to person, place, time, situation. Cardiovascular: Patient's skin is warm and dry. Respiratory: Airway is patent Respiratory effort is even, unlabored. GI: No signs and/or symptoms were reported involving the gastrointestinal system. : Urine is clear. EENT: No signs and/or symptoms were reported regarding the EENT system. Derm: Skin is intact, Skin is pink, warm \T\ dry. Musculoskeletal: Circulation, motion, and sensation intact. 11:34 Reassessment: Patient appears in no apparent distress at this time. Patient and/or vg1 family updated on plan of care and expected duration. Pain level reassessed. Patient is alert, oriented x 3, equal unlabored respirations, skin warm/dry/pink. Vital Signs: 09:39 BP 175 / 94; Pulse 100; Resp 18 S; Temp 98.0; Pulse Ox 98% on R/A; Weight 70.31 kg; iw 10:46 BP 175 / 92; Pulse 99; Resp 16; Pulse Ox 99% ; vg1 11:35 BP 172 / 88; Pulse 90; Resp 16; Pulse Ox 98% ; vg1 ED Course: 09:03 Patient arrived in ED. mr 09:03 Kleber Wilkinson MD is Private Physician. mr 09:42 Triage completed. iw 09:44 Arm band placed on. iw 10:21 Patient has correct armband on for positive identification. Bed in low position. Call mh5 light in reach. Side rails up X 1. Adult w/ patient. Pulse ox on. NIBP on. 10:23 Sam Tran MD is Attending Physician. albert 10:31 Kerry Hobbs, SANTOS is Primary Nurse. vg1 10:42 Kleber Wilkinson MD is Referral Physician. albert 10:42 Lanre Long MD is Referral Physician. albert 11:34 No provider procedures requiring assistance completed. IV discontinued, intact, vg1 bleeding controlled, No redness/swelling at site. Pressure dressing applied. Administered Medications: 10:53 Drug: Cipro (ciprofloxacin) 500 mg Route: PO; vg1 12:00 Follow up: Response: No adverse reaction vg1 Output: 10:39 Urine: 750ml (Lopez); Total: 750ml. vg1 Outcome: 10:43 Discharge ordered by . albert 11:34 Discharged to home via wheelchair. vg1 11:34 Condition: stable 11:34 Discharge instructions given to patient, family, Instructed on discharge instructions, follow up and referral plans. medication usage, Demonstrated understanding of instructions, follow-up care, medications, Prescriptions given X 2. 11:35 Patient left the ED. vg1 Signatures: Sam Tran MD MD cha Rivera, Mary mr Williams, Irene, RN Michelle Tineo Kerry Guerra RN RN vg1
[2021-01-28 10:45] LABS: Urine Blood Negative (Negative); Urine Glucose Negative (Negative); Urine Protein 1+ (Negative); Urine Specific Gravity 1.015 (1.005-1.030); Urine pH 8.5 (5.0-7.0)
[2021-01-28] MEDS ORDERED: CIPROFLOXACIN HCL 500 MG TAB ONE (11:11)
[2021-01-28 11:41] VITALS: TEMP 98
[2021-01-28 11:44] VITALS: BP 172/88; O2SAT 98
== END 2021-01-28 11:35 | disposition home or self-care (01) ==
LOC: ER 09:02
DX: R33.9 Retention of urine, unspecified (principal); I10 Essential (primary) hypertension
CPT/HCPCS: 81003; 87086; 87088; 99283

== ENCOUNTER 2021-06-08 16:11 | Emergency (ER) | payer OTHER ==
--- OUTSIDE RECORDS SUMMARY | 2021-06-08 16:15 | XMS REPORT | Continuity of Care Document ---
:1945 Author Organization [facility] t Address [address] [place] [address] Care Team Providers Name Role Phone Ezequiel Lei Attending Clinician Unavailable Jade Attending Clinician JADE Attending Clinician Unavailable Ajibade_O_AH Attending Clinician Unavailable Ige-Odunuga_J_AH Attending Clinician Unavailable Erintesteff Admitting Clinician Unavailable Ajibade_O_AH Admitting Clinician Unavailable Ige-Odunuga_J_AH Admitting Clinician Unavailable Payers Payer Name Policy Type Policy Number Effective Date Expiration Date S alejandra [facility] [place] - [id number] 2019 [employer] 00:00:00 (MEDICARE REPLACEMENT/ADVANT AGE - HMO) Problems This patient has no known problems. Allergies, Adverse Reactions, Alerts Allergy Allergy Status Severity Reaction(s) Onset Inactive Treating Comm ents Source Name Type Date Date Clinician No Known DA Active [facility] No Known DA Active [facility] d [facility] NO KNOWN Drug Active Univers ALLERGIE Class ity of S [facility] Social History Social Habit Start Date Stop Date Quantity Comments Source Sex Assigned At Uni versity [facility] Exposure to SARS-CoV-2 Not sure Un iversity [facility] (event) Medical Branch Smoking Status Start Date Stop Date Source Unknown if ever smoked [facility] y [facility] Medications Ordered Filled Start Stop Current Ordering Indication Dosage Frequency Signature Comments Components Source Medication Medication Date Date Medication? Clinician (SIG) Name Name NaCl 0.9% 2019-06 1000mL at 999 Uni vers (NS) bolus 07-09 1112 mL/hr, ity of infusion 18:00: 18:54 1,000 mL, Codey as 1,000 mL 00 :00 IV Medical Piggyback, Branch ONCE, 1 dose, Alexandrea 05/09/20 at 1200, STAT Vital Signs Vital Name Observation Time Observation Value Comments Source Systolic blood 2020-05-09 21:00:00 130 mm[Hg] Univer sity of pressure [facility] Diastolic blood 2020-05-09 21:00:00 69 mm[Hg] Unive rsity of [facility] Heart rate 2020-05-09 21:00:00 64 /min Universi ty [facility] Respiratory rate 2020-05-09 21:00:00 12 /min Univ ersity [facility] Oxygen saturation in 2020-05-09 21:00:00 95 /min University of Arterial blood by [facility] Pulse oximetry Branch Body temperature 2020-05-09 15:51:00 36.17 [facility] height 2020-05-09 15:51:00 177.8 cm [facility] Body weight 2020-05-09 15:51:00 79.379 kg [facility] BMI 2020-05-09 15:51:00 25.11 kg/m2 [facility] ty [facility] Systolic blood 2020-05-09 21:00:00 130 mm[Hg] Univer sity of [facility] Branch Diastolic blood 2020-05-09 21:00:00 69 mm[Hg] Unive rsity of pressure [facility] Heart rate 2020-05-09 21:00:00 64 /min Universi ty [facility] Respiratory rate 2020-05-09 21:00:00 12 /min Univ ersity of [facility] Branch Oxygen saturation in 2020-05-09 21:00:00 95 /min University of Arterial blood by [facility] Pulse oximetry Branch Body temperature 2020-05-09 15:51:00 36.17 [facility] ersity [facility] Body height 2020-05-09 15:51:00 177.8 cm [facility] Body weight 2020-05-09 15:51:00 79.379 kg [facility] BMI 2020-05-09 15:51:00 25.11 kg/m2 [facility] Procedures Procedure Date / Time Performed Performing Clinician Sourc e POCT GLUCOSE 2020-05-09 21:29:00 [facility] (AUTOMATED) [facility] URINALYSIS 2020-05-09 17:40:00 [facility] COMP. METABOLIC PANEL 2020-05-09 17:06:00 [facility] ([id number]) [facility] CBC WITH DIFF 2020-05-09 17:06:00 [facility] POCT GLUCOSE 2020-05-09 16:30:00 [facility] (AUTOMATED) [facility] Encounters Start End Encounter Admission Attending Care Care Encounter Source Date/Time Date/Time Type Type Clinicians Facility Department ID 2020-12-25 2020-12-25 Emergency EM Aristeiguie [facility] LA53 [id number] [facility] 14:06:00 19:05:00 Ezequiel jj [id number] [facility] 2020-05-09 2020-05-09 Emergency [facility] [id number] [facility] 09:48:00 15:52:00 Isatu Franco [id number] i ty [facility] [id number] [facility] [id number] [address] 2020-05-09 2020-05-09 Emergency [facility] [id number] 0271 09:48:00 15:52:00 Isatu Franco [id number] [place] [id number] [place] [address] [id number] [facility] 2020-05-09 2020-05-09 Emergency X [facility] ERT [id number] Univers 09:48:00 09:48:00 ISATU mullins [facility] 2020-02-22 2020-02-22 Outpatient Ajibade_O_A VFP VFP [address] [place] [address] 04:33:00 04:33:00 H [id number] Family Practic e 2019-08-16 2019-08-16 Outpatient Ige-Gavin [facility] [address] [place] [address] 07:13:00 07:13:00 _J_ [id number] Family Practic e Results Test Description Test Time Test Comments [...] for culture: Suprapubic PainDRUGS OF ABUSE SCREEN [id number] 18:21:00 Test Item Value Reference Range Interpretation [...] mated code = AMPHETURN) SCcutoff message] T he system which generated this result transmit estephania reference range : <1000 NG/ML. e reference range was not used [...] for culture: Suprapubic PainDRUGS OF ABUSE SCREEN [id number] 18:06:00 Test Item Value Reference Range Interpretation Comments URN COCAINE (test code = SCcutoff See_Comment [A utomated message] COCAURN) The system Screenburn generated this result transmit estephania reference range [...] See_Comment [A utomated message] OPIATURN) The system Screenburn generated this result transmit estephania reference range [...] [A utomated message] = METHAURN) The system Screenburn generated this result transmit estephania reference range [...] for culture: Suprapubic PainDRUGS OF ABUSE SCREEN [id number] 18:06:00 Test Item Value Reference Range Interpretation Comments URN COCAINE (test code = SCcutoff See_Comment [A utomated message] COCAURN) The system Screenburn generated this result transmit estephania reference range [...] See_Comment [A utomated message] OPIATURN) The system Screenburn generated this result transmit estephania reference range [...] [A utomated message] = METHAURN) The system Screenburn generated this result transmit estephania reference range : <300 NG/ML. The reference range was not used to interpret this result as normal/abnormal . Indication for culture: Suprapubic PainPROTHROMBIN [id number] 17:18:00 Test Item Value Reference Range Interpretation Comments PT PATIENT (test code = PTP) 10.7 SECONDS 9.3-12.9 N INTERNATIONAL NORMAL RATIO 0.96 INR Unit 0.8-1.2 N (test code = INR) THROMBOPLASTIN TIME [id number] 17:18:00 Test Item Value Reference Range Interpretation Comments THROMBOPLASTIN TIME PARTIAL 32.4 SECONDS 26-35 N (test code = PTT) [id number] 16:07:00 Test Item Value Reference Range Interpretation Comments AMMONIA (test code = AMM) 21 mcMOL/L 11-32 N BASIC METABOLIC [id number] 15:22:00 Test Item Value Reference Range Interpretation [...] 8.5 MG/DL 8.5-10.1 N Completed by Nursing: [id number] 15:22:00 Test Item Value Reference Range Interpretation Comments LIPASE (test code = LIP) 69 Unit/L 114-286 L Completed by Nursing: [id number] 15:22:00 Test Item Value Reference Range Interpretation [...] [facility]an [facility]. Completed by Nursing: [id number] 15:22:00 Test Item Value Reference Range Interpretation Comments ALCOHOL (test code = ALC) 296 MG/DL 0-10 HH Completed by Nursing: NOCBC W/AUTO [id number] 15:04:00 Test Item Value Reference Range Interpretation [...] CRITERIA = MDIFF) - XR CHEST 1 [id number] 14:45:00 [facility] : 1945 Sex: M Name: EBONY DIAZ [facility] : 1945 Age/S: 75 / M [address] [address] Unit #: [id number] Loc: [place] [address] Phys: Ezequiel Lei MD Acct: [id number] Dis Date: Status: PRE ER PHONE #: [phone] Exam Date: 12/25/2020 5273 FAX #: Reason: chest pain EXAMS: CPT: [id number] XR CHEST 1 V 59632 Fluoro Time: DAP (Gy m2): Air Kerma [...] PAGE 1 Signed Report Name: EBONY DIAZ [facility] : 1945 Age/S: 75 / M [address] [address] Unit #: [id number] Loc: [place] [address] Phys: Ezequiel Lei MD Acct: [id number] Dis Date: Status: PRE ER PHONE #: [phone] Exam Date: 12/25/20201426 FAX #: Reason: chest pain EXAMS: CPT: [id number] XR CHEST 1 V 43411 Fluoro Time: DAP (Gy m2): Air Kerma (mGy): <Continued> Tech nologist: Juliana Chirinos, RT(R)(CT) Trnscb Date/Time: 12/25/2020 (706)Marcell Orig Print D/T: S: 12/25/2020 (6347) PAGE 2 Signed Report- CT C- SPINE W/O [id number] 14:41:00 [facility] : 1945 Sex: M Name: EBONY DIAZ [facility] : 1945 Age/S: 75 / M [address] [address] Unit #: [id number] Loc: [place] [address] Phys: Ezequiel Lei MD Acct: [id number] Dis Date: Status: PRE ER PHONE #: [phone] Exam Date: 12/25/2020 1421 FAX #: Reason: fall, on blood thinners EXAMS: CPT: [id number] CT C-SPINE W/O CONT 19772 EXAM: - CT C- SPINE W/O CONT [...] 1 Signed Report (CONTINUED) Name: EBONY DIAZ [facility] : 1945 Age/S: 75 / M [address] [place] [address] Unit #: [id number] Loc: [place] [address] Phys: Ezequiel Lei MD Acct: [id number] Dis Date: Status: PRE ER PHONE #: [phone] Exam Date: 12/25/2020 1421 FAX #: Reason: fall, on blood thinners EXAMS: CPT: [id number] C-SPINE W/O CONT 72991 <Continued> CC: Ezequiel Lei MD; Magda RIVAS Technologist:Trevin Armstrong, RT(R)(CT) CTDI: DLP: Trnscb Date/Time: 12/25/2020 (144) [email or web address] OrigPrint D/T: S: 12/25/2020 (1444) PAGE 2 Signed Report- CT HEAD/BRAIN W/O [id number] 14:41:00 [facility] : 1945 Sex: M Name: [place] : 1945 Age/S: 75 / M [address] [address] Unit #: [id number] Loc: [place] [address] Phys: Ezequiel Lei MD Acct: [id number] Dis Date: Status: PRE ER PHONE #: [phone] Exam Date: 12/25/2020 1422 FAX #: Reason: fall, on blood thinners EXAMS: CPT: [id number] CT HEAD/BRAIN W/O CONT 81067 Dictation location: U19. CT HEAD WITHOUT CONTRAST. [...] 1 Signed Report (CONTINUED) Name: EBONY DIAZ [facility] : 1945 Age/S: 75 / M [address] [address] Unit #: [id number] Loc: [place] [address] Phys: Ezequiel Lei MD Acct: [id number] Dis Date: Status: PRE ER PHONE #: [phone] Exam Date: 12/25/2020 1422 FAX #: Reason: fall, on blood thinnersEXAMS: CPT: [id number] CT HEAD/BRAIN W/O CONT 47264 <Continued> at 1441 Reported and signed by: Ludivina Lyn M.D. CC: Ezequiel Lei MD; Magda RIVAS Technologist:Trevin Armstrong, (R)(CT) CTDI: DLP: Trnscb Date/Time: 12/25/2020 (1441) [email or web address] Orig Print D/T: S: 12/25/2020 (6806) PAGE 2 Signed ReportPOCT GLUCOSE (AUTOMATED)2020-05-09 21:31:00 Test Item Value Reference Range Interpretation Comments POCT GLU (test code = 8377818799) 121 mg/dL 70-110 H Lab Interpretation (test code = Abnormal 80792-6) [facility] Test Item Value Reference Range Interpretation Comments APPEARANCE (test code = Clear Clear 4184108245) COLOR (test code = Yellow Yellow 6153190050) PH (test code = 4.8-8.0 2327708300) SP GRAVITY (test code = 1.003-1.030 5587111511) GLU U QUAL (test code = Normal Normal 6034952016) BLOOD (test code = Negative Negative 4824242928) KETONES (test code = 20 mg/dL Negative A 7648828144) PROTEIN (test code = Negative Negative 2887-8) UROBILIN (test code = Normal Normal 9845936084) BILIRUBIN (test code = Negative Negative 2223285299) NITRITE (test code = Negative Negative 8635068211) LEUK MARY (test code = Negative Negative 6580549660) RBC/HPF (test code = See_Comment [Autom ated message] 9227819805) The system Screenburn generated this result transmitted ref erence range: 0 - 3 HP F. The reference range was not used to int erpret this result as normal/abnormal . WBC/HPF (test code = <1 See_Comment [Autom ated message] 7659023692) The system Screenburn generated this result transmitted ref erence range: 0 - 5 HP F. The reference range was not used to int erpret this result as normal/abnormal . BACTERIA (test code = Negative Negative 0113963726) Lab Interpretation (test Abnormal code = 54307-5) [facility]. METABOLIC PANEL (40827)2020-05-09 17:52:00 Test Item Value Reference Range Interpretation Comments NA (test code = 142 mmol/L 135-145 8760111976) K (test code = 4.2 mmol/L 3.5-5 9837110696) CL (test code = 99 mmol/L 98-108 5972182270) CO2 TOTAL (test code = 24 mmol/L 23-31 5775188041) AGAP (test code = 2-16 H 4597998933) BUN (test code = 9 mg/dL 7-23 4754989920) GLUCOSE (test code = 89 mg/dL 70-110 1414699953) CREATININE (test code = 0.64 mg/dL 0.6-1.25 0510983140) TOTAL BILI (test code = 1.6 mg/dL 0.1-1.1 H 3007265874) CALCIUM (test code = 9.2 mg/dL 8.6-10.6 8901445028) T PROTEIN (test code = 7.7 g/dL 6.3-8.2 7975912733) ALBUMIN (test code = 4.5 g/dL 3.5-5 3838957415) ALK PHOS (test code = 106 U/L 34-122 1559252034) ALTv (test code = 70 U/L 5-50 H 1742-6) AST(SGOT) (test code = 99 U/L 13-40 H 4774903688) eGFR Calculation mL/min/1.73m2 (Non-) (test code = 2543580547) eGFR Calculation mL/min/1.73m2 () (test code = 4622692379) KARINA (test code = KARINA) Association of Glomerular Filtration Rate (GFR) and Staging of Kidney Disease* + --+ --+ ------+| GFR (mL/min/1.73 m2) ?| With Kidney Damage ?| ?Without Kidney Damage+ --------+ --------+ +| ?>90 ?| ?Stage one ?| ? Normal ?+ ---+ ---+ -------+| ?60-89 ?| ?Stage two ?| ? Decreased GFR ? + --+ --+ ------+| ?30-59 ?| ?Stage three ?| ? Stage three ? + --+ --+ ------+| ?15-29 ?| ?Stage four ? | ? Stage four ?+ ---+ ---+ -------+| ?<15 (or dialysis) ? ?| ?Stage five ? | ? Stage five ?+ ---+ ---+ -------+ *Each stage assumes the associated GFR level has been in effect for at least three months. ?Stages 1 to 5, with or without kidney disease, indicate chronic kidney disease. Notes: Determination of stages one and two (with eGFR >59mL/min/1.73 m2) requires estimation of kidney damage for at least three months as defined by structural or functional abnormalities of the kidney, manifested by either:Pathological abnormalities or Markers of kidney damage (including abnormalities in the composition of the blood or urine or abnormalities in imaging tests). Lab Interpretation Abnormal (test code = 83642-6) [facility] WITH [id number] 17:48:00 Test Item Value Reference Range Interpretation Comments WBC (test code = See_Comment [Automated 5122-2) message] The sy stem which generated this result transmitted reference range : 4.20 - 10.70 10*3/?L. The reference range was not used to interpret this result as normal/abnormal . RBC (test code = See_Comment [Automated 880-8) message] The sy stem which generated this result transmitted reference range : 4.26 - 5.52 10*6/?L. The reference range was not used to interpret this result as normal/abnormal . HGB (test code = 14.0 g/dL 12.2-16.4 718-7) HCT (test code = 40.9 % 38.4-49.3 4544-3) MCV (test code = 90.9 fL 81.7-95.6 787-2) MCH (test code = 31.1 pg 26.1-32.7 785-6) MCHC (test code = 34.2 g/dL 31.2-35 786-4) RDW-SD (test code = 42.7 fL 38.5-51.6 07935-2) RDW-CV (test code = 13.0 % 12.1-15.4 788-0) PLT (test code = See_Comment [Automated 777-3) message] The sy stem which generated this result transmitted reference range : 150 - 328 10*3/ ?L. The reference r amara was not used to interpret this result as normal/abnormal . MPV (test code = 9.4 fL 9.8-13 L 13077-5) NRBC/100 WBC (test See_Comment [Automat ed code = 1931134586) message] The system which generated this result transmitted reference range : 0.0 - 10.0 /100 WBCs. The refer ence range was not u sed to interpret th is result as normal/abnormal . NRBC x10^3 (test code <0.01 See_Comment [Auto mated = 3408377283) message] The s ystem which generated this result transmitted reference range : 10*3/?L. The reference range was not used to interpret this result as normal/abnormal . GRAN MAT (NEUT) % 61.4 % (test code = 770-8) IMM GRAN % (test code 0.40 % = 6080551019) LYMPH % (test code = 28.5 % 736-9) MONO % (test code = 8.6 % 5905-5) EOS % (test code = 0.4 % 713-8) BASO % (test code = 0.7 % 706-2) GRAN MAT x10^3(ANC) 2.77 10*3/uL 1.99-6.95 (test code = 4549320780) IMM GRAN x10^3 (test <0.03 0-0.06 code = 4577271832) LYMPH x10^3 (test code 1.29 10*3/uL 1.09-3.23 = 731-0) MONO x10^3 (test code 0.39 10*3/uL 0.36-1.02 = 742-7) EOS x10^3 (test code = <0.03 0.06-0.53 L 711-2) BASO x10^3 (test code 0.03 10*3/uL 0.01-0.09 = 704-7) Lab Interpretation Abnormal (test code = 62252-9) [facility] 17:31:00 Test Item Value Reference Range Interpretation Comments POCT GLU (test code = 9358665190) 86 mg/dL 70-110 Lab Interpretation (test code = Normal 12701-5) [facility]"
[2021-06-08 16:45] LABS: Urine Blood Trace-intact (Negative); Urine Glucose Negative (Negative); Urine Protein Negative (Negative)
[2021-06-08 16:48] LABS: Absolute Lymphocytes (CBC) 0.6 K/uL (0.7-4.9); Basophils % 0.1 % (0-1.3); Hematocrit 31.2 % (39.6-49.0); Lymphocytes % 4.5 % (15.3-44.8); MPV 7.9 fL (7.6-11.3); RBC Red Blood Cell Count 3.38 M/uL (4.33-5.43)
[2021-06-08] MEDS ORDERED: NA CHLORIDE 0.9% 2,000 ML ONE (16:53)
[2021-06-08] MEDS ORDERED: CEFTRIAXONE 1000 MG/VIAL ONE (16:53)
[2021-06-08 17:00] LABS: Protime INR 1.24
[2021-06-08 17:11] LABS: ALT/SGPT 15 U/L (12-78); AST/SGOT 25 U/L (15-37); Albumin 1.9 g/dL (3.4-5.0); Alkaline Phosphatase 117 U/L (45-117); Amylase 44 U/L (25-115); BUN Blood Urea Nitrogen 107 mg/dL (7-18); Bicarbonate 17 mmol/L (21-32); Bilirubin Direct 0.2 mg/dL (0-0.2); Bilirubin Total 0.5 mg/dL (0.2-1.0); Creatine Phosphokinase 27 U/L (39-308); Glucose Level 133 mg/dL (74-106); Lipase 94 U/L (73-393); Potassium 5.2 mmol/L (3.5-5.1); Protein, Total 8.4 g/dL (6.4-8.2); Sodium Level 146 mmol/L (136-145); Troponin (Emerg Dept Use Only) < 0.02 ng/mL (0.0-0.045)
[2021-06-08 17:14] LABS: CKMB Creatine Kinase MB < 1.0 ng/mL (1.0-3.6)
--- NOTE | 2021-06-08 17:40 | RAD REPORT ---
EXAM DESCRIPTION: CT - CTHCSPWOC - 06/08/2021 5:03 pm CLINICAL HISTORY: TRAUMA COMPARISON: Head C Spine Mpr Wo Con dated 08/12/2020 TECHNIQUE: Axial 5 mm thick images of the head were obtained. Axial 2 mm thick images of the cervic al spine were obtained with sagittal and coronal reconstruction images generated and reviewed. All CT scans are performed using dose optimization technique as appropriate and may include automated exposure control or mA/KV adjustment according to patient size. FINDINGS: No intracranial hemorrhage, mass, edema or acute intracranial finding. No acute cortical b ased infarction, cortical edema or sulcal effacement. 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 This exte nds to the left basal ganglia. Cerebral edema is present matching the July study. Ventricles are in proportion to the volume loss. Dense arterial tree calcifications are present. No extra-axial flui d collections. Chronic opacification of the left mastoid air cells present. Chronic opacification of the left frontal anterior left-sided ethmoid air cells. No acute air-fluid level. Postsurgical, post therapy changes are present on the left only partially imaged on this study. No globe or orbit abnorm ality seen. Cervical bodies are normal in height with no fracture or acute finding seen. Retrolisthesis of C3 on C4 has not changed. The C3-4 disc space has been effaced. There is posterior endplate spurring presen t. Uncovertebral joint hypertrophy is present with significant bilateral bony foraminal stenosis. Morteza ateral foraminal stenosis at C4-5 and C5-6. C6-7 shows foraminal stenosis as well. Central spinal chantell nosis is present at C3-4, C4-5, C5-6 and C6-7. Stenosis changes are not any different from earlier ex amination. All disc levels show some degree of loss in height. No fracture or acute bony abnormality. No pathologic bone process. Central canal detail is inherently limited. No paraspinal mass or hematoma. Postsurgical changes are noted from reconstructed mandible. IMPRESSION: Atrophy, chronic ischemic change and old encephalomalacia changes match the July sigifredo dy. No acute intracranial finding. Advanced cervical spine degenerative change as detailed. No significant change from July. Negative CT cervical spine examination for acute or significant finding.
--- NOTE | 2021-06-08 17:42 | ER ---
Nurse's Notes [facility] Name: Timothy Bal Age: 76 yrs Sex: Male : 1945 Arrival Date: 06/08/2021 Time: 16:16 Bed 4 Private MD: Diagnosis: Unspecified bacterial pneumonia-extensive masslike consolidation left lower lobe, postobstructive;Malignant pleural effusion;Acute kidney failure, unspecified;Hyperkalemia;Lower abdominal pain, unspecified-8 cm pelvic floor mass, pronounced bilateral hydronephrosis and hydroureter;Cachexia;Dehydration;Weakness;Elevated white blood cell count;Anemia, unspecified Presentation: 06/08 16:38 Chief complaint: EMS states: ems reports that family called due tp pt not wanting to jh6 eat or drink in last 3 days and fever starting this afternoon. 16:38 Acuity: CECIL 2 [facility] 16:38 Coronavirus screen: At this time, the client does not indicate any symptoms associated jh6 with coronavirus-19. Ebola Screen: No symptoms or risks identified at this time. Initial Sepsis Screen: Does the patient meet any 2 criteria? RR > 20 per min. HR > 90 bpm. Yes Does the patient have a suspected source of infection? No. Patient's initial sepsis screen is negative. Risk Assessment: Do you want to hurt yourself or someone else? Patient reports no desire to harm self or others. Onset of symptoms was June 07, 2021 at 08:00. 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 - Social history:: Patient/guardian denies using alcohol, street drugs, The patient lives with family, Smoking status: Patient/guardian denies using tobacco. - Family history:: not pertinent. - Code Status:: Full code. Screenin:20 Abuse screen: Denies threats or abuse. [facility] 16:20 Nutritional screening: pt is failure to thrive and family reports that he has not ate jh6 in 3 days.. Tuberculosis screening: No symptoms or risk factors identified. Fall Risk Fall in past 12 months (25 points). Secondary diagnosis (15 points) impaired mobility, Ambulatory Aid- None/Bed Rest/Nurse Assist (0 pts). Assessment: 16:46 General: Appears distressed, uncomfortable, ill, slender, unkempt, emaciated, jh6 malnourished, Behavior is cooperative, Smells of urine and body odor. Pain: Denies pain. Neuro: Oriented to person, place. Cardiovascular: Capillary refill < 3 seconds Rhythm is sinus tachycardia. Respiratory: Airway is patent Trachea midline Respiratory effort is labored, Respiratory pattern is tachypnea Breath sounds with crackles bilaterally. GI: Abdomen is flat, non-distended. Musculoskeletal: 17:40 Reassessment: No changes from previously documented assessment. Patient and/or family jh6 updated on plan of care and expected duration. Pain level reassessed. Patient is alert, oriented x 3, equal unlabored respirations, skin warm/dry/pink. 18:38 Reassessment: Patient and/or family updated on plan of care and expected duration. Pain jh6 level reassessed. Patient is alert, oriented x 3, equal unlabored respirations, skin warm/dry/pink. Patient denies pain at this time. 19:05 Reassessment: Lopez placed to gravity 16fr. jh6 20:45 Reassessment: Patient's son at bedside, talking to other son on phone; family agreed lp1 for plan for transfer, discussing with Dr. Tran. 20:50 General: Appears ill, slender, malnourished, Behavior is quiet. Pain: Denies pain. lp1 Neuro: Level of Consciousness is awake, Oriented to person. Cardiovascular: Patient's skin is warm and dry. Respiratory: Airway is patent Respiratory effort is even, shallow, Respiratory pattern is tachypnea Breath sounds with crackles bilaterally. GI: Abdomen is flat. : Lopez in place to gravity drainage. Derm: Skin is fragile, is thin, with poor turgor Skin is dry, Skin is pale. Musculoskeletal: Capillary refill < 3 seconds, in bilateral fingers. toes. 22:14 General: Behavior is calm, cooperative, appropriate for age. tw5 22:14 Respiratory: Airway is patent Trachea midline Breath sounds with crackles bilaterally. tw5 23:29 Reassessment: Called patient's son, [place], at [phone], notified of patient transfer lp1 to [facility] to 8A room 807. Vital Signs: 16:48 BP 122 / 64; Pulse 123; Resp 30; Pulse Ox 94% on 15% Non-rebreather mask; jh6 16:50 Weight 61.23 kg; Height 5 ft. 6 in. (167.64 cm); jh6 17:36 BP 126 / 89; Pulse 107; Resp 24; Temp 98.9(TE); Pulse Ox 100% on 15% Non-rebreather jh6 mask; Pain 0/10; 18:37 BP 117 / 72; Pulse 102; Resp 24; Pulse Ox 99% on 15% Non-rebreather mask; jh6 21:04 BP 111 / 81; Pulse 102; Resp 20; Pulse Ox 99% on 15% Non-rebreather mask; lp1 22:14 BP 112 / 80; Pulse 104; Pulse Ox 100% on Venturi mask; tw5 16:50 Body Mass Index 21.79 (61.23 kg, 167.64 cm) [facility] Vitals: 16:48 Cardiac Rhythm Assessment Regular. [facility] ED Course: 16:16 Patient arrived in ED. eb 16:17 Lori Lemons MD is Attending Physician. ma2 16:46 Ilene Loyd, SANTOS is Primary Nurse. jh6 16:48 Arm band placed on right wrist. jh6 16:49 Call light in reach. Side rails up X2. jh6 16:50 Inserted saline lock: 20 gauge in left antecubital area, using aseptic technique. jh6 16:[address] jh6 17:03 Head C Spine Mpr Wo Con In Process Unspecified. EDMS 17:11 Chest Single View XRAY In Process Unspecified. EDMS 17:34 Triage completed. jh6 17:36 Maintain EMS IV. Dressing intact. Good blood return noted. Site clean \T\ dry. Gauge \T\ 6 site: 20g l fa. 17:40 Christiano Davis DO is Hospitalizing Provider. ma2 17:43 Lori Fong MD is Hospitalizing Provider. la1 18:06 Chest Abd Pelvis Wo Con In Process Unspecified. EDMS 19:05 Lroi Fong MD is Hospitalizing Provider. ma2 19:13 Primary Nurse role handed off by Ilene Loyd, RN mw2 19:23 Karen Brown, SANTOS is Primary Nurse. lp1 20:55 initiated a transfer with Carissa Ambriz from [facility]. mw2 20:58 Attending Physician role handed off by Lori Lemons MD [facility] 20:58 Sam Tran MD is Attending Physician. [facility] 21:20 [facility] denied due to capacity. mw2 21:25 initiated a transfer with Janel Silver from [facility]. mw2 21:28 initiated a transfer with Pilar from [facility] Transfer [place]. mw2 21:58 [facility] denied due to capacity. mw2 22:14 radiation monitor on. Pulse ox on. NIBP on. Door closed. Noise minimized. Moved to [facility] private room. Warm blanket given. Verbal reassurance given. 22:15 Amylase, Serum Sent. tw5 22:16 Basic Metabolic Panel Sent. tw5 22:16 CPK Sent. tw5 22:16 CBC with Diff Sent. tw5 22:17 Blood Culture Adult (2) Sent. [facility] 22:55 administrative approval given by Pilar Abarca/ patient has been accepted to [address] to the Pending sale to [facility] 8A 807/Dr. Roberts accepted the patient in transfer/ report to be called to [phone]. 23:26 No provider procedures requiring assistance completed. Patient transferred, IV remains lp1 in place. Administered Medications: 17:15 Drug: NS 0.9% (30 ml/kg) 30 ml/kg Route: IV; Rate: bolus; Site: left forearm; [facility] 17:20 Drug: Rocephin (cefTRIAXone) 1 grams Route: IV; Rate: calculated rate; Site: left [facility] forearm; 17:29 Follow up: Response: No adverse reaction 6 18:39 Follow up: Response: No adverse reaction [facility] 18:25 Drug: Zithromax (azithromycin) 500 mg Route: IVPB; Infused Over: 1 hrs; Site: left [facility] forearm; 18:50 Follow up: Response: No adverse reaction [facility] 19:30 Follow up: IV Status: Completed infusion 1 20:57 Drug: Zosyn (piperacillin-tazobactam) 3.375 grams Route: IVPB; Infused Over: 60 mins; 1 Site: left forearm; 21:41 Follow up: IV Status: Completed infusion; IV Intake: 100ml lp1 20:57 Drug: D5-1/2 NS 1000 ml Route: IV; Rate: 125 ml/hr; Site: left forearm; lp1 23:28 Follow up: IV Status: Infusion continued upon transfer tw5 22:14 Not Given (patient unable to tolerate fluids POo): Kayexalate (polystyrene) 30 grams PO tw5 once Intake: 21:41 IV: 100ml; Total: 100ml. lp1 Outcome: 17:40 Decision to Hospitalize by Provider. ma2 19:06 Decision to Hospitalize by Provider. ma2 21:12 ER care complete, transfer ordered by . albert 23:26 critical lp1 23:26 Instructed on the need for transfer. 23:27 Transferred by ground EMS to [facility], Transfer form tw5 completed. Note: Called report to Michelle GRAHAM 23:49 Patient left the ED. tw5 Signatures: Dispatcher [employer] EDSam Ovalle MD MD cha Pena, Laura, RN RN lp1 Evan Freeman, RADIOLOGY ASSISTANT-C RADIOLOGY ASSISTANT-Cla1 Lori Lemons MD MD vt2 Gail Koehler 2 Tammy Berg Tiffany tw5 Ilene Loyd RN RN 6 Corrections: (The following items were deleted from the chart) 17:35 17:35 PMHx: mandible cancer; [place] [id number] 17:35 17:35 PMHx: Hypertensive disorder; [place] [id number] 17:35 17:35 PSHx: mandible; [place] [id number] 21:21 20:55 initiated a transfer with Carissa Ambriz from [facility] mw2 mw2
--- NOTE | 2021-06-08 17:42 | EDPHYS ---
Physician Documentation [facility] Name: Timothy Bal Age: 76 yrs Sex: Male : 1945 Arrival Date: 06/08/2021 Time: 16:16 Bed 4 Private MD: ED Physician Sam Tran HPI: 06/08 16:27 This 76 yrs old Male presents to ER via Unassigned with complaints of Confusion fever. ma2 16:27 Onset: The symptoms/episode began/occurred gradually, 2 day(s) ago. Associated signs ma2 and symptoms: Pertinent negatives: productive cough, hemoptysis, loss of consciousness, nausea. Severity of symptoms: At their worst the symptoms were moderate in the emergency department the symptoms are unchanged. The patient has experienced similar episodes in the past. History of oral cancer.. 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 - Social history:: Patient/guardian denies using alcohol, street drugs, The patient lives with family, Smoking status: Patient/guardian denies using tobacco. - Family history:: not pertinent. - Code Status:: Full code. ROS: 16:27 Constitutional: Negative for fever, chills, and weight loss. ma2 16:27 All other systems are negative. Exam: 16:27 Constitutional: Nonverbal due to her cancer, seems in distress, dehydrated, looks ill. ma2 Head/Face: Contusion of right temporal area, with dried blood, otherwise normocephalic, atraumatic. Eyes: Pupils equal round and reactive to light, extra-ocular motions intact. Lids and lashes normal. Conjunctiva and sclera are non-icteric and not injected. Cornea within normal limits. Periorbital areas with no swelling, redness, or edema. ENT: Has oral cancer, mouth cancer. Tracheostomy. Otherwise nares patent. No nasal discharge, no septal abnormalities noted. Tympanic membranes are normal and external auditory canals are clear. Oropharynx with no redness, swelling, or masses, exudates, or evidence of obstruction, uvula midline. Mucous membranes moist. Neck: Trachea midline, no thyromegaly or masses palpated, and no cervical lymphadenopathy. Supple, full range of motion without nuchal rigidity, or vertebral point tenderness. No Meningismus. Chest/axilla: Normal chest wall appearance and motion. Nontender with no deformity. No lesions are appreciated. Cardiovascular: Regular rate and rhythm with a normal S1 and S2. No gallops, murmurs, or rubs. Normal PMI, no JVD. No pulse deficits. Respiratory: Lungs have equal breath sounds bilaterally, clear to auscultation and percussion. No rales, rhonchi or wheezes noted. No increased work of breathing, no retractions or nasal flaring. Abdomen/GI: Soft, non-tender, with normal bowel sounds. No distension or tympany. No guarding or rebound. No evidence of tenderness throughout. Skin: Warm, dry with normal turgor. Normal color with no rashes, no lesions, and no evidence of cellulitis. MS/ Extremity: Pulses equal, no cyanosis. Neurovascular intact. Full, normal range of motion. Neuro: Awake and alert, GCS 15, oriented to person, place, time, and situation. Cranial nerves II-XII grossly intact. Motor strength 5/5 in all extremities. Sensory grossly intact. Cerebellar exam normal. Normal gait. 21:15 ECG was reviewed by the Attending Physician. [facility] Vital Signs: 16:48 BP 122 / 64; Pulse 123; Resp 30; Pulse Ox 94% on 15% Non-rebreather mask; 6 16:50 Weight 61.23 kg; Height 5 ft. 6 in. (167.64 cm); 6 17:36 BP 126 / 89; Pulse 107; Resp 24; Temp 98.9(TE); Pulse Ox 100% on 15% Non-rebreather 6 mask; Pain 0/10; 18:37 BP 117 / 72; Pulse 102; Resp 24; Pulse Ox 99% on 15% Non-rebreather mask; jh6 21:04 BP 111 / 81; Pulse 102; Resp 20; Pulse Ox 99% on 15% Non-rebreather mask; lp1 22:14 BP 112 / 80; Pulse 104; Pulse Ox 100% on Venturi mask; tw5 16:50 Body Mass Index 21.79 (61.23 kg, 167.64 cm) [facility] MDM: 16:17 Patient medically screened. ma2 16:27 Differential diagnosis: Anemia asthma, Bronchitis Sepsis UTI. ma2 17:40 Data reviewed: vital signs, nurses notes, EMS record. Counseling: I had a detailed [facility] discussion with the patient and/or guardian regarding: the historical points, exam findings, and any diagnostic results supporting the discharge/admit diagnosis, the presence of at least one elevated blood pressure reading (>120/80) during this emergency department visit, the need for further work-up and treatment in the hospital. 18:56 ED course: Patient has pelvic mass, likely malignancy obstructing urinary flow, severe ma2 bilateral hydronephrosis, with acute renal failure. Patient needs urology. The service not available in our hospital. We will attempt to transfer to higher level of care.. 19:04 ED course: Patient informed him that he does not want any surgery, he would like [facility] hospice care, he also would like to pursue DNR.. 20:58 Patient medically screened. [facility] 06/08 16:18 Order name: Amylase, Serum [facility] 06/08 16:18 Order name: Basic Metabolic Panel [facility] 06/08 16:18 Order name: Blood Culture Adult (2) [facility] 06/08 16:18 Order name: CBC with Diff [facility] 06/08 16:18 Order name: CPK [facility] 06/08 16:18 Order name: Ckmb; Complete Time: 17:33 va2 06/08 16:18 Order name: LFT's; Complete Time: 17:33 va2 06/08 16:18 Order name: Lactate; Complete Time: 17:33 va2 06/08 16:18 Order name: Lipase; Complete Time: 17:33 va2 06/08 16:18 Order name: Procalcitonin; Complete Time: 18:10 [facility] 06/08 16:18 Order name: Protime (+inr); Complete Time: 17:33 va2 06/08 16:18 Order name: Ptt, Activated; Complete Time: 17:33 va2 06/08 16:18 Order name: Troponin (emerg Dept Use Only); Complete Time: 17:33 ma2 06/08 16:18 Order name: Urine Microscopic Only; Complete Time: 18:10 va2 06/08 16:18 Order name: Chest Single View XRAY; Complete Time: 17:48 ma2 06/08 16:19 Order name: Amylase; Complete Time: 17:33 EDMS 12/12 16:19 Order name: Basic Metabolic Panel; Complete Time: 17:33 EDMS 12/12 16:19 Order name: Blood Culture EDMS 12 16:19 Order name: CBC with Automated Diff; Complete Time: 17:33 EDMS 12/12 16:19 Order name: Creatine Phosphokinase; Complete Time: 17:33 EDMS 12/12 16:22 Order name: Head C Spine Mpr Wo Con; Complete Time: 17:42 EDMS 12 16:45 Order name: Urine Dipstick-Ancillary; Complete Time: 17:33 EDMS 12 17:36 Order name: COVID-19/FLU A+B (Document "Date of Onset" if Symptomatic); Complete Time: la1 18:52 12 18:02 Order name: Chest Abd Pelvis Wo Con; Complete Time: 18:52 EDMS 12 21:19 Order name: Lactate Sepsis 2 HR Follow-up EDMS 06/08 16:18 Order name: Accucheck; Complete Time: 19:26 ma2 06/08 16:18 Order name: Cardiac monitoring; Complete Time: 17:34 ma2 06/08 16:18 Order name: EKG - Nurse/Tech; Complete Time: 17:35 ma2 06/08 16:18 Order name: IV Saline Lock - Large Bore; Complete Time: 17:34 ma2 06/08 16:18 Order name: Labs collected and sent; Complete Time: 17:34 ma2 12 16:18 Order name: O2 Per Protocol; Complete Time: 17:34 ma2 06/08 16:18 Order name: O2 Sat Monitoring; Complete Time: 17:34 ma2 06/08 16:18 Order name: Urine Dipstick-Ancillary (obtain specimen); Complete Time: 17:34 ma2 06/08 17:39 Order name: Lopez; Complete Time: 19:03 la1 /12 21:30 Order name: IV Saline Lock - Large Bore; Complete Time: 21:29 albert EC:15 Rate is 117 beats/min. Rhythm is regular. QRS [place] is Normal. [place] interval is normal. albert QRS interval is normal. QT interval is normal. No Q waves. T waves are Normal. No ST changes noted. Clinical impression: Sinus tachycardia and No evidence of ischemia. Interpreted by me. Reviewed by me. Administered Medications: 17:15 Drug: NS 0.9% (30 ml/kg) 30 ml/kg Route: IV; Rate: bolus; Site: left forearm; 6 17:20 Drug: Rocephin (cefTRIAXone) 1 grams Route: IV; Rate: calculated rate; Site: left [facility] forearm; 17:29 Follow up: Response: No adverse reaction 6 18:39 Follow up: Response: No adverse reaction [facility] 18:25 Drug: Zithromax (azithromycin) 500 mg Route: IVPB; Infused Over: 1 hrs; Site: left [facility] forearm; 18:50 Follow up: Response: No adverse reaction [facility] 19:30 Follow up: IV Status: Completed infusion lp1 20:57 Drug: Zosyn (piperacillin-tazobactam) 3.375 grams Route: IVPB; Infused Over: 60 mins; lp1 Site: left forearm; 21:41 Follow up: IV Status: Completed infusion; IV Intake: 100ml lp1 20:57 Drug: D5-1/2 NS 1000 ml Route: IV; Rate: 125 ml/hr; Site: left forearm; lp1 23:28 Follow up: IV Status: Infusion continued upon transfer tw5 22:14 Not Given (patient unable to tolerate fluids POo): Kayexalate (polystyrene) 30 grams PO tw5 once Disposition Summary: 06/08/21 21:12 Transfer Ordered Transfer Location: [facility] Reason: Higher level of care albert Condition: Serious(06/08/21 21:12) albert Problem: new(06/08/21 21:12) albert Symptoms: have worsened(06/08/21 21:12) albert Accepting Physician: TO (06/08/21 23:49) tw5 Diagnosis - Unspecified bacterial pneumonia - extensive masslike consolidation left lower lobe, albert postobstructive - Malignant pleural effusion albert - Acute kidney failure, unspecified(06/08/21 21:12) albert - Hyperkalemia albert - Lower abdominal pain, unspecified - 8 cm pelvic floor mass, pronounced bilateral albert hydronephrosis and hydroureter - Cachexia albert - Dehydration albert - Weakness albert - Elevated white blood cell count albert - Anemia, unspecified albert Forms: - Medication Reconciliation Form albert - SBAR form albert Signatures: Dispatcher [employer] EDSam Ovalle MD MD cha Pena, Laura RN RN lp1 Attema, Evan, LOADING UNIT OPERATOR-C LOADING UNIT OPERATOR-Cla1 Lori Lemons MD MD va2 Lou Romeo 5 Ilene Loyd, RN RN jh6 Corrections: (The following items were deleted from the chart) 16:21 16:19 Head Brain Wo Cont+CT.RAD.BRZ ordered. EDMS EDMS 16:21 16:19 C Spine Wo Con+CT.RAD.BRZ ordered. EDMS EDMS 16:22 16:21 Head Brain W/Wo Con ordered. EDMS EDMS 17:35 17:35 PMHx: mandible cancer; [place] [id number] 17:35 17:35 PMHx: Hypertensive disorder; [place] [id number] 17:35 17:35 PSHx: mandible; [place] [address] 17:43 17:40 Christiano Davis ma2 la1 18:02 17:41 Stone Protocol+CT.RAD.BRZ ordered. EDMS EDMS 18:57 17:40 Inpatient Admission ma2 ma2 18:57 17:40 Telemetry/MedSurg (Inpatient) ma2 ma2 18:57 17:40 Stable ma2 ma2 18:57 17:40 new ma2 ma2 18:57 17:40 are unchanged ma2 ma2 18:57 17:40 Standard ma2 ma2 18:57 17:40 ma2 ma2 18:57 17:40 Other specified sepsis ma2 ma2 18:57 17:40 Acute cystitis ma2 ma2 18:57 17:43 Lori Fong la1 ma2 20:47 19:06 Observation ma2 la1 20:47 19:06 Lori Fong ma2 la1 20:47 19:06 Telemetry/MedSurg (Inpatient) ma2 la1 20:47 19:06 Stable ma2 la1 20:47 19:06 new ma2 la1 20:47 19:06 are unchanged ma2 la1 20:47 19:06 Standard ma2 la1 20:47 19:06 ma2 la1 20:47 19:06 Acute kidney failure, unspecified - pelvic floor mass, HOSPICE CARE ma2 la1 23:49 21:12 TO [facility]
--- NOTE | 2021-06-08 17:44 | RAD REPORT ---
EXAM DESCRIPTION: RAD - Chest Single View - 06/08/2021 5:11 pm CLINICAL HISTORY: CONGESTION COMPARISON: July 2020 TECHNIQUE: AP portable chest image was obtained 06/08/2021 5:11 pm . FINDINGS: Right lung field is clear. No right-sided pneumothorax or pleural effusion. Trachea is mid line. Heart size is normal. Focal opacification present in the mid and lower left lung field with lef t pleural effusion identified. There is skin fold or clothing artifact overlying the left chest creat ing vertical linear density. No left-sided pneumothorax. No acute bony abnormality seen. No acute aor tic findings suspected. IMPRESSION: Left-sided small pleural effusion with mid and lower lung field pneumonia findings.
[2021-06-08] MEDS ORDERED: AZITHROMYCIN 500 MG INJ IVPB ONE (18:00)
[2021-06-08] MEDS ORDERED: NA CHLORIDE 0.9% 250 ML ONE (18:01)
[2021-06-08 18:05] LABS: Urine Bacteria <20 /HPF (NONE SEEN); Urine RBC NONE SEEN /HPF (NONE SEEN)
[2021-06-08 18:06] LABS: Urine Amorphous Sediment TRACE /HPF (NONE SEEN)
[2021-06-08 18:34] LABS: SARS-COV-2 RT PCR NEGATIVE (NEGATIVE)
--- NOTE | 2021-06-08 18:34 | RAD REPORT ---
EXAM DESCRIPTION: CT - Chest Abd Pelvis Wo Con - 06/08/2021 6:06 pm CLINICAL HISTORY: acute renal failure, leukocytosis COMPARISON: Chest Single View dated 06/08/2021 TECHNIQUE: Axial 5 millimeter thick images of the chest, abdomen and pelvis were obtained without IV contrast. Oral contrast was administered. All CT scans are performed using dose optimization technique as appropriate and may include automated exposure control or mA/KV adjustment according to patient size. FINDINGS: A significant portion of the neck was imaged. There is extensive postsurgical change. No g ross evidence for new mass or lymphadenopathy. Right lung field is hyperexpanded and clear. No right-sided pneumothorax or pleural effusion. Left up per lobe shows some volume reduction due to endobronchial opacification from inflammatory debris or p ossibly mass. Similar opacification is seen in the left lower lobe bronchus. Extensive masslike conso lidation of the entire left lower lobe is present. Small left pleural effusion is present. A few air bronchograms are present. No left-sided pneumothorax. No chest wall mass or abnormal axillary lymphad enopathy seen. A few small nonspecific mediastinal lymph nodes are present. No significant cardiac f inding. The liver, spleen and pancreas show no significant findings for non contrast imaging. Gallbladder an d biliary tree are normal. Gallstones can be occult on CT imaging. There is pronounced bilateral hydronephrosis and hydroureter down to the bladder level. No obstructin g calculus. No adrenal abnormalities. There is a large 8 centimeter lobulated mass along the midline and left-side pelvic floor. There is no tissue plane separation between the mass in the anterior and left lateral finch of the rectum. Mass has node plane separation from the prostate gland or posterio r wall of the bladder. This has the appearance of a malignant mass and could be colon, prostate or ev en possibly bladder in origin. This mass the source of the bilateral ureter obstruction. A 6 x 2.5 ce ntimeter lymph node is present along the right pelvic sidewall. No other evidence for acute or significant bowel finding. No free air, free fluid or inflammatory str anding. Prominent disc and bony degenerative changes are present. IMPRESSION: Extensive masslike consolidation of the left lower lobe with adjacent minimal pleural ef fusion. There is endobronchial obstruction in the left lower lobe bronchus and partial obstruction of the left upper lobe bronchus. Chest finding could be a large consolidated pneumonia or malignancy. Large lobulated 8 centimeter pelvic floor mass involving the anterior and left lateral rectal wall, p rostate gland and urinary bladder. 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 There is adjacent right side pelvic wall lymphadenopathy. Extensive bilateral hydronephrosis down to the UVJ level due to the pelvic floor mass. CT abdomen and pelvis imaging shows no significant or suspicious finding.
[2021-06-08] MEDS ORDERED: PIPERACIL/TAZO 3.375 GM VIAL IV ONE (20:32)
[2021-06-08] MEDS ORDERED: NA CHLORIDE 0.9% 100 ML ONE (20:32)
[2021-06-08] MEDS ORDERED: D5 0.45 NS 1,000 ML IV ONE (20:32)
[2021-06-08] MEDS ORDERED: SOD POLYSTYREN SUL 15 GM/60 ML UCUP ONE (22:10)
[2021-06-08 23:56] VITALS: TEMP 98.9
[2021-06-08 23:59] VITALS: BP 112/80; O2SAT 100
== END 2021-06-08 23:49 | disposition short-term general hospital (02) ==
LOC: ER 16:11
DX: J15.9 Unspecified bacterial pneumonia (principal); C06.9 Malignant neoplasm of mouth, unspecified; J91.0 Malignant pleural effusion; N17.9 Acute kidney failure, unspecified; E87.5 Hyperkalemia; E86.0 Dehydration; R64 Cachexia; D64.9 Anemia, unspecified; D72.829 Elevated white blood cell count, unspecified; N13.30 Unspecified hydronephrosis; N13.4 Hydroureter; R19.00 Intra-abdominal and pelvic swelling, mass and lump, unspecified site; Z20.822 Contact with and (suspected) exposure to COVID-19
CPT/HCPCS: 96365; 96367; 96361; 93005; 87040 ×2; 85025; 80048; 36415; 82150; 82550; 85610; 80076; 83605 ×2; 85730; 84484; 82553; 83690; 84145; 0240U; 70450; 71250; 72125; 74176; 71045; 96375; 99285; J2543; J0456; J7799; J7050; J7030; 81003; 81015